=== PATIENT | female | born 1970 | race Hispanic/Latino ===

== ENCOUNTER 2017-08-30 13:18 | Emergency (ER) | payer MEDICAID, OTHER ==
[~2017-08-30] VITALS: Ht 157.5 cm; Wt 73.0 kg
[~2017-08-30 13:18] MED LIST: ACYC800T PO; ARIP2TAB10 PO; ATR20T PO; BENZ200C25 PO; CEFD300C3 PO; CPR500T PO; FLUO40CA PO; GABAPENTIN; LISI1TAB PO; LISI1TAB8; MELO-198 PO; NAPR500T PO; PRD20T PO; TRAM50TA2 PO
--- OUTSIDE RECORDS SUMMARY | 2017-08-30 13:25 | XMS REPORT | Clinical Summary ---
Author Author [facility] Organization [facility] Address Unknown Phone Unavailable Care Team Providers Care Dietetic Technician Name Role Phone PCP Unavailable Source Comments Some departments are not documenting in the electronic medical record. If you do not see the information that you expected, contact Release of Information in the Health Information Management department at [phone] for further assistance in locating additional records.[facility] Allergies No Known Allergies Current Medications Prescription Sig. Disp. Refills Start End Date Status Date cyclobenzaprine Take 10 mg by mouth three Active (FLEXERIL) 10 mg PO times daily as needed. tablet lisinopril/hydrochlorothi Take 1 Dose by mouth Active azide (ZESTORETIC) daily. 20/12.5 mg tablet 1 Dose citalopram (CELEXA) 10 mg Take 40 mg by mouth Active PO tablet daily. oxyCODONE/acetaminophen Take 1-2 Tabs by mouth 30 Tab 0 07/14/20 Active (PERCOCET; ENDOCET; every 4 hours as needed 11 ROXICET) 5/325 mg PO for Pain. Max 12 tabs/day tablet docusate (COLACE) 100 mg Take 1 Cap by mouth twice 180 Cap 0 07/14/20 Active PO capsule daily. 11 polyethylene glycol 3350 Take 17 g by mouth daily 3 Bottle 0 07/14/20 Active (GLYCOLAX; MIRALAX) 17 as needed (constipation). 11 gram/dose PO powder lidocaine (LIDODERM) 5 % 1 Patch daily. Leave on 1 box 0 07/14/20 Active TP topical patch for 12 hours and remove 11 for 12 hours. atorvastatin (LIPITOR) 20 Take 1 Tab by mouth 90 Tab 0 07/14/20 Active mg PO tablet daily. 11 Active Problems Problem Noted Date Low back pain 07/11/2011 HTN (hypertension) 07/11/2011 HLD (hyperlipidemia) 07/11/2011 Anxiety 07/11/2011 Family History Medical History Relation Name Comments Arthritis-rheumatoid Father Dementia Father Diabetes Father Gout Father Heart Attack Father High Cholesterol Father Hypertension Father Arthritis-osteo Maternal Grandfather Diabetes Maternal Grandfather Hypertension Maternal Grandfather Cancer Maternal Grandmother Diabetes Maternal Grandmother Hypertension Maternal Grandmother Heart Attack Mother High Cholesterol Mother Hypertension Mother Asthma Sister Depression Sister High Cholesterol Sister Relation Name Status Comments Father Maternal Grandfather Maternal Grandmother Mother Sister Social History Tobacco Use Types Packs/Day Years Used Date Never Smoker Smokeless Tobacco: Never Used Alcohol Use Drinks/Week oz/Week Comments Yes 3 Cans of 1.8 Ocassional use beer Sex Assigned at Date Recorded Not on file Last Filed Vital Signs Vital Sign Reading Time Taken Blood Pressure 108/69 07/14/2011 12:25 PM CDT Pulse 112 07/14/2011 12:25 PM CDT Temperature 36.8 C (98.2 F) 07/14/2011 12:25 PM CDT Respiratory Rate - - Oxygen Saturation 99% 07/14/2011 12:25 PM CDT Inhaled Oxygen - - Concentration Weight 66.9 kg (147 lb 7.8 oz) 07/11/2011 11:26 PM CDT Height - - Body Mass Index - - Plan of Treatment Health Maintenance Due Date Last Done Comments PHYSICAL (COMPREHENSIVE) 1977 EXAM PERTUSSIS VACCINE 1981 TETANUS VACCINE 1987 CERVICAL CANCER SCREENING 2000 BREAST CANCER SCREENING 2010 INFLUENZA VACCINE 06/11/2017 Results Not on filefrom Last 3 Months
--- NOTE | 2017-08-30 13:56 | ED General ---
General Chief Complaint: Rect Problems Stated Complaint: BLOOD IN STOOL Nursing Triage Note: PT REPORTS BLOODY STOOL X 1 MONTH. SHE STATES SHE WAS SEEN AT [facility] YESTERDAY AND HER PROVIDER ATTEMPTED TO DO A RECTAL EXAM, BUT PT COULD NOT TOLERATE EXAM. SHE STATES SHE IS HAVING LOW BACK PAIN AND IS FEELING PRESSURE TO HER RECTUM. SHE DENIES N/V. Nursing Sepsis Screen: No Definite Risk Source of Information: Patient Exam Limitations: No Limitations History of Present Illness Time Seen by Provider: 13:56 Initial Comments 47-year-old female patient presents to the emergency department with complaints of constipation, rectal bleeding, and rectal pain for approximately one month. Patient was seen at [facility] yesterday and was unable to tolerate the rectal exam. Patient was told to use Preparation H ryqv-efk-uaybayr. States she is not able to tolerate inserting the tip of the tube into the anus. Pain and bleeding worse with constipation. Denies dizziness, shortness of air, nausea, vomiting, abdominal pain. Does have a history of hemorrhoids. Patient states she was told to contact her PCP today for follow-up in the office. States she called at 0730 this morning was told her physician was out of of the office. Was also told to come to the emergency department for evaluation. Also complains of pressure in the rectum. Patient is a history of chronic back pain and states this is causing her chronic back pain to be worse. Denies bowel or bladder incontinence. Timing/Duration: Intermittent, Other (1 month onset) Modifying Factors: worse with Other (worse with bowel movements) Allergies and Home Medications Allergies Coded Allergies: No Known Drug Allergies (Unverified , 03/26/13) Home Medications Hydrocortisone/Pramoxine 30 Gm Cream.appl, 30 GM RC QID for 10 Days, #1 Ref 0 apply to hemorrhoids QID x7-10 d Prescribed by: SARA QUEZADA on 08/30/17 1526 Lidocaine 15 Gm Cream..g., 15 GM TP UD PRN for pain, #1 Ref 0 apply to the affected area QID prn pain Prescribed by: SARA QUEZADA on 08/30/17 1526 Lisinopril/Hydrochlorothiazide 1 Each Tablet, #30 (Reported) Polyethylene Glycol 3350 119 Gm Powder, 17 GM PO HS PRN for CONSTIPATION-1ST LINE, #1 Ref 0 Prescribed by: SARA QUEZADA on 08/30/17 1526 Tramadol HCl 50 Mg Tablet, 50 MG PO Q4H PRN for PAIN, #14 Ref 0 Prescribed by: SARA QUEZADA on 10/19/16 1552 [Gabapentin] , (Reported) Constitutional: No chills, No diaphoresis, No dizziness, No fever, No malaise Respiratory: no symptoms reported Cardiovascular: no symptoms reported Gastrointestinal: No abdominal pain, constipation, No diarrhea, No hematemesis , No melena, No nausea, No vomiting, other (hematochezia) Genitourinary: No decreased output, No discharge, No dysuria, No frequency, No hematuria, No pain Musculoskeletal: no symptoms reported Skin: no symptoms reported Psychiatric/Neurological: No Symptoms Reported Hematologic/Lymphatic: No Symptoms Reported All Other Systems Reviewed Negative Unless Noted: Yes (Negative excepted noted.) Past Bxsokhx-Cpmiur-Tefpgw Hx Patient Social History Alcohol Use: Rarely Uses Recreational Drug Use: No Smoking Status: Never a Smoker 2nd Hand Smoke Exposure: No Recent Foreign Travel: No Contact w/Someone Who Travel: No Recent Infectious Disease Expo: No Recent Hopitalizations: No Physical Abuse: No Sexual Abuse: No Seasonal Allergies Seasonal Allergies: No Surgeries History of Surgeries: Yes (HYSTEROSCOPY) Surgeries: Orthopedic Respiratory History of Respiratory Disorde: No Cardiovascular History of Cardiac Disorders: Yes Cardiac Disorders: High Cholesterol, Hypertension Neurological History of Neurological Disord: No Reproductive System Hx Reproductive Disorders: No Gastrointestinal History of Gastrointestinal Di: Yes Gastrointestinal Disorders: Hemorrhoids Musculoskeletal History of Musculoskeletal Dis: Yes (BACK SX) Musculoskeletal Disorders: Chronic Back Pain Endocrine History of Endocrine Disorders: No Cancer History of Cancer: No Psychosocial History of Psychiatric Problem: Yes Behavioral Health Disorders: Depression Suicide Risk Score: 0 Integumentary History of Skin or Integumenta: No Blood Transfusions History of Blood Disorders: No Reviewed Nursing Assessment Reviewed/Agree w Nursing PMH: Yes Family Medical History Significant Family History: Heart Disease, Cancer, Diabetes, Hypertension Physical Exam Vital Signs Vital Sign - Last 12Hours 08/30/17 13:30 Temp 97.2 Pulse 75 Resp 16 B/P (MAP) 136/74 Pulse Ox 100 O2 Delivery Room Air Capillary Refill : Less Than 3 Seconds General Appearance: No Apparent Distress, WD/WN HEENT: PERRL/EOMI, Pharynx Normal Neck: Normal Inspection, Supple Respiratory: Lungs Clear, Normal Breath Sounds, No Accessory Muscle Use, No Respiratory Distress Cardiovascular: Regular Rate, Rhythm, No Edema, No Murmur, Normal Peripheral Pulses Gastrointestinal: Normal Bowel Sounds, No Organomegaly, Non Tender, Soft, No Distended Rectal: Normal Rectal Tone, Hemorrhoids, Other (anal fissure noted at the 2 o' clock position.) Back: Normal Inspection, No CVA Tenderness, No Vertebral Tenderness, Muscle Spasm (muscle spasm and tenderness noted of the bilateral lower paraspinous muscles) Extremity: Normal Capillary Refill, Normal Inspection, No Pedal Edema Neurologic/Psychiatric: Alert, Oriented x3, No Motor/Sensory Deficits, Normal Mood/Affect Skin: Normal Color, Warm/Dry Progress/Results/Core Measures Results/Orders My Orders Orders - SARA QUEZADA Ketorolac Injection (Toradol Injection) (08/30/17 14:05) Acute Abd Series (08/30/17 14:05) Lidocaine 2% (Urojet) (Xylocaine Urojet) (08/30/17 14:15) Medications Given in ED Current Medications Medications Dose Ordered Sig/Wayne Route Start Time Stop Time Status Last Admin Dose Admin Lidocaine HCl 10 ml ONCE ONCE TOP 08/30/17 14:15 08/30/17 14:16 DC 08/30/17 15:15 10 ML Vital Signs/I&O Vital Sign - Last 12Hours 08/30/17 08/30/17 13:30 15:32 Temp 97.2 97.2 Pulse 75 75 Resp 16 16 B/P (MAP) 136/74 Pulse Ox 100 100 O2 Delivery Room Air Blood Pressure Mean: 94 Diagnostic Imaging Diagonstic Imaging: Xray Plain Films/CT/US/NM/MRI: abdomen Comments FINDINGS: Upright chest shows the lungs to be clear. There is no free air under the diaphragm. Upright and supine abdomen show no air-fluid levels or distended bowel loops. There is normal appearing stool and gas pattern throughout the colon. No organomegaly or pathologic calcifications are demonstrated. Laminectomy changes are noted in the lower lumbar spine. IMPRESSION: Normal abdominal series. Dictated on workstation # [id number] Reviewed: Reviewed by Me (radiology report reviewed by me) Departure Communication (Admissions) Progress Notes Heme positive stool noted. Diagnostic studies discussed with the patient. Plan for discharge home with recticare, Analpram, and MiraLAX prescriptions. Patient to do sitz baths twice daily and after each bowel movement. Patient to continue stool softeners as instructed. Follow-up with her PCP as an outpatient for recheck. Impression Impression: Primary Impression: Anal fissure Disposition: 01 HOME, SELF-CARE Condition: Improved Departure-Patient Inst. Decision time for Depature: 15:24 Referrals: LESLYE BERNABE DO (PCP) Primary Care Physician HOLLEY BANUELOS (Family) Primary Care Physician Patient Instructions: Anal Fissure (DC) Add. Discharge Instructions: All discharge instructions reviewed with patient and/or family. Voiced understanding. Medications as instructed. Tylenol Extra Strength over-the- counter as directed for pain. Ibuprofen 800 mg by mouth every 8 hours as needed for pain. Sitz baths twice daily and after each bowel movement. Colace stool softener wwcw-ydv-deyoacq 2-3 times daily as needed for constipation. Follow-up with your primary care providers outpatient for recheck. Return to the emergency department for worsened symptoms or any other concerns. Scripts Polyethylene Glycol 3350 (Miralax) 119 Gm Powder 17 GM PO HS Y for CONSTIPATION-1ST LINE, #1 EA 0 Refills Prov: SARA QUEZADA 08/30/17 Hydrocortisone/Pramoxine (Analpram Hc 2.5% Cream) 30 Gm Cream.appl 30 GM RC QID for 10 Days, #1 APPLIC 0 Refills apply to hemorrhoids QID x7-10 d Prov: SARA QUEZADA 08/30/17 Lidocaine (Recticare) 15 Gm Cream..g. 15 GM TP UD Y for pain, #1 TUBE 0 Refills apply to the affected area QID prn pain Prov: SARA QUEZADA 08/30/17 Work/School Note: Work Release Form Date Seen in the Emergency Department: Aug 30, 2017 Return to Work: Sep 01, 2017 SARA QUEZADA Aug 30, 2017 13:56
[2017-08-30] MEDS ORDERED: KETOROLAC 60 MG/2 ML VIAL IM STA (14:05)
[2017-08-30] MEDS ORDERED: LIDOCAINE UROJET 2% GEL 10 ML PKG TOP ONE (14:15)
--- NOTE | 2017-08-30 14:42 | Diagnostic Imaging Report ---
INDICATION: Chest and back pain. FINDINGS: Upright chest shows the lungs to be clear. There is no free air under the diaphragm. Upright and supine abdomen show no air-fluid levels or distended bowel loops. There is normal appearing stool and gas pattern throughout the colon. No organomegaly or pathologic calcifications are demonstrated. Laminectomy changes are noted in the lower lumbar spine. IMPRESSION: Normal abdominal series. Dictated by: Dictated on workstation # [id number]
[2017-08-30] MEDS ORDERED: HC A30CR RC (15:26)
[2017-08-30] MEDS ORDERED: POLY119P5 PO (15:26)
[2017-08-30] MEDS ORDERED: LIDO15CR6 TP (15:26)
[2017-08-30 15:32] VITALS: BP 136/74
== END 2017-08-30 15:33 | disposition home or self-care (01) ==
LOC: EDUNIT# 13:18 → ER 13:21
DX: K60.2 Anal fissure, unspecified (principal); E78.00 Pure hypercholesterolemia, unspecified; I10 Essential (primary) hypertension; F32.9 Major depressive disorder, single episode, unspecified; Z82.49 Family history of ischemic heart disease and other diseases of the circulatory system
CPT/HCPCS: 74022; 96372; 99284

== ENCOUNTER → 2017-10-21 | Outpatient (CLI) | payer MEDICAID ==
[~2017-10-21] MED LIST changes: +HC A30CR RC; +LIDO15CR6 TP; +NAPR-1071 PO; -NAPR500T PO; +POLY119P5 PO
--- NOTE | 2017-10-21 10:43 | Diagnostic Imaging Report ---
PROCEDURE: MRI lumbar spine. TECHNIQUE: Multiplanar, multisequence MRI of the lumbar spine was performed without contrast. INDICATION: Low back pain. FINDINGS: There is satisfactory alignment of the lumbar spine at the posterior spinal line. The vertebral body heights are preserved. There is significant disc height loss at L5/S1. There is disc desiccation in the lower lumbar spine discs. The cauda equina and conus medullaris appear grossly unremarkable. There is a mild marrow signal edema around the posterior elements of the lower lumbar spine levels probably secondary to facet arthropathy. This is most prominent around the L3/L4 and L4/L5 facet joints on the left. T12/L1: There is no disc herniation, no spinal canal or foraminal stenosis. L1/L2: No disc herniation, no spinal canal or foraminal stenosis. There is mild foraminal hypertrophy. L2/L3: There is no disc herniation. There is mild facet hypertrophy. There is no spinal canal or foramina stenosis. L3/L4: There is a mild disc bulge and the moderate facet arthropathy. There is a mild central canal stenosis reducing the AP dimension of the canal to 9 mm. No lateral recess stenosis. The foramina demonstrate no significant stenosis. L4/L5: There is a diffuse disc bulge with xplanndo-rb-vaujkf facet arthropathy. There is severe spinal canal stenosis reducing the AP dimension of the canal to 5.5 mm and severe stenosis of the lateral recess on both sides. The foramina demonstrate mild stenosis on the left and moderate stenosis on the right side. L5/S1: There are posterior osteophytes and disc bulge with minimal posterior component seen. The facet joints demonstrate mild hypertrophy. No central canal or lateral recess stenosis. There is suggestion of prior laminectomy at this level. IMPRESSION: There is severe spinal canal stenosis at L4/L5 level. Dictated by: Dictated on workstation # [id number]
== END ==
LOC: RAD 09:19
PROVIDERS: ATTEND Nurse Practitioner Community Health
DX: M48.061 Spinal stenosis, lumbar region without neurogenic claudication (principal)
CPT/HCPCS: 72148

== ENCOUNTER → 2018-02-03 | Outpatient (CLI) | payer MEDICAID ==
--- NOTE | 2018-02-03 10:12 | Diagnostic Imaging Report ---
INDICATION: Low back pain. Time of exam 9:44 AM Flexion and extension views of the lumbar spine laterally were obtained. Flexion view does show approximately 5 mm of anterolisthesis of L4 on L5. This corrects to a normal alignment during extension. Vertebral body heights are maintained. There is degenerative disc disease at L5-S1 with disc space narrowing and marginal spurring. IMPRESSION: Abnormal motion is identified at the L4-5 level. No acute fracture is seen. There is significant L5-S1 degenerative disc disease. Dictated by: Dictated on workstation # [id number]
== END ==
LOC: RAD 09:09
PROVIDERS: ATTEND Neurological Surgery
DX: M48.061 Spinal stenosis, lumbar region without neurogenic claudication (principal); M51.37 Other intervertebral disc degeneration, lumbosacral region; M47.816 Spondylosis without myelopathy or radiculopathy, lumbar region
CPT/HCPCS: 72100

== ENCOUNTER 2018-02-22 08:55 | Emergency (ER) | payer MEDICAID ==
[~2018-02-22] VITALS: Ht 157.5 cm; Wt 72.6 kg
--- NOTE | 2018-02-22 09:15 | ED Cough/URI ---
General Chief Complaint: Cough/Cold/Flu Symptoms Stated Complaint: FLU SYMPTOMS Source: patient, family Exam Limitations: no limitations History of Present Illness Date Seen by Provider: Feb 22, 2018 Time Seen by Provider: 09:14 Initial Comments This 47-year-old white female presents with cough congestion and laryngitis for the past 2 weeks. Patient had associated sinus congestion with epistaxis. There's been no associated stiff neck or photophobia or headache. The patient had fever with her present illness for the first few days but has not for the last 10 days. Multiple family members have had a similar illness in the last 2 weeks. Other than severe disc disease the patient had no significant past medical history. Patient's biggest complaint is of a persistent cough worse at night. Allergies and Home Medications Allergies Coded Allergies: No Known Drug Allergies (Unverified , 03/26/13) Home Medications Hydrocortisone/Pramoxine 30 Gm Cream.appl, 30 GM RC QID apply to hemorrhoids QID x7-10 d Prescribed by: SARA QUEZADA on 08/30/17 1526 Lidocaine 15 Gm Cream..g., 15 GM TP UD PRN for pain apply to the affected area QID prn pain Prescribed by: SARA QUEZADA on 08/30/17 1526 Polyethylene Glycol 3350 119 Gm Powder, 17 GM PO HS PRN for CONSTIPATION-1ST LINE Prescribed by: SARA QUEZADA on 08/30/17 1526 Tramadol HCl 50 Mg Tablet, 50 MG PO Q4H PRN for PAIN Prescribed by: SARA QUEZADA on 10/19/16 1552 Patient Home Medication List Home Medication List Reviewed: Yes Review of Systems Constitutional: No chills; fever (patient had intermittent fever low grade during the course of her present illness.) EENTM: nose congestion, throat pain; No throat swelling Respiratory: see HPI, cough; No short of breath, No wheezing Cardiovascular: No chest pain, No edema, No palpitations Gastrointestinal: No abdominal pain, No diarrhea, No vomiting Genitourinary: no symptoms reported Musculoskeletal: no symptoms reported Skin: No rash Psychiatric/Neurological: No Symptoms Reported Hematologic/Lymphatic: No Symptoms Reported Immunological/Allergic: no symptoms reported Past Aoslqqv-Odnoze-Tewqab Hx Patient Social History Alcohol Use: Denies Use Recreational Drug Use: No Smoking Status: Never a Smoker 2nd Hand Smoke Exposure: No Recent Foreign Travel: No Contact w/Someone Who Travel: No Recent Hopitalizations: No Seasonal Allergies Seasonal Allergies: No Past Medical History Surgeries: Yes (HYSTEROSCOPY) Orthopedic Respiratory: No Cardiac: Yes High Cholesterol, Hypertension Neurological: No Reproductive Disorders: No Gastrointestinal: Yes Hemorrhoids Musculoskeletal: Yes (BACK SX) Chronic Back Pain Endocrine: No Cancer: No Psychosocial: Yes Depression Integumentary: No Blood Disorders: No Family Medical History Reviewed Nursing Family Hx Heart Disease, Cancer, Diabetes, Hypertension Physical Exam Vital Signs Vital Signs - First Documented 02/22/18 09:10 Temp 96.9 Pulse 100 Resp 20 B/P (MAP) 130/72 (91) Pulse Ox 99 O2 Delivery Room Air Capillary Refill : General Appearance: WD/WN, mild distress Eyes: Bilateral Eye Normal Inspection HEENT: pharyngeal erythema, other (nasal congestion.) Neck: non-tender, full range of motion, supple, normal inspection Respiratory: lungs clear, normal breath sounds Cardiovascular: normal peripheral pulses, regular rate, rhythm Gastrointestinal: normal bowel sounds, non tender, soft Extremities: normal range of motion, non-tender, normal inspection Neurologic/Psychiatric: no motor/sensory deficits, alert, normal mood/affect, oriented x 3 Skin: normal color, warm/dry Progress/Results/Core Measures Suspected Sepsis SIRS Temperature: Pulse: Respiratory Rate: Laboratory Tests 02/22/18 10:30: White Blood Count 7.6 Blood Pressure / Mean: Laboratory Tests 02/22/18 10:30: Platelet Count 306 Results/Orders Lab Results Laboratory Tests Test 02/22/18 09:27 02/22/18 10:30 Range/Units Group A Streptococcus Screen NEGATIVE NEGATIVE White Blood Count 7.6 4.3-11.0 10^3/uL Red Blood Count 4.10 L 4.35-5.85 10^6/uL Hemoglobin 11.8 11.5-16.0 G/DL Hematocrit 36 35-52 % Mean Corpuscular Volume 87 80-99 FL Mean Corpuscular Hemoglobin 29 25-34 PG Mean Corpuscular Hemoglobin Concent 33 32-36 G/DL Red Cell Distribution Width 13.2 10.0-14.5 % Platelet Count 306 130-400 10^3/uL Mean Platelet Volume 11.5 H 7.4-10.4 FL Neutrophils (%) (Auto) 68 42-75 % Lymphocytes (%) (Auto) 20 12-44 % Monocytes (%) (Auto) 9 0-12 % Eosinophils (%) (Auto) 3 0-10 % Basophils (%) (Auto) 0 0-10 % Neutrophils # (Auto) 5.1 1.8-7.8 X 10^3 Lymphocytes # (Auto) 1.5 1.0-4.0 X 10^3 Monocytes # (Auto) 0.7 0.0-1.0 X 10^3 Eosinophils # (Auto) 0.2 0.0-0.3 10^3/uL Basophils # (Auto) 0.0 0.0-0.1 10^3/uL Micro Results Microbiology 02/22/18 Influenza Types A,B Antigen (POOJA) - Final, Complete My Orders Orders - KENTRELL BERRY MD Rapid Strep A Screen (02/22/18 09:15) Influenza A And B Antigens (02/22/18 09:15) Cbc With Automated Diff (02/22/18 09:15) Chest 1 View, Ap/Pa Only (02/22/18 09:15) Vital Signs/I&O 02/22/18 02/22/18 09:10 09:10 Temp 96.9 Pulse 100 Resp 20 B/P (MAP) 130/72 (91) Pulse Ox 99 O2 Delivery Room Air Capillary Refill : Progress Note : Time: 10:39 Progress Note The patient's strep screen and flu a and B were negative. Chest x-ray was unremarkable. I discussed patient's findings with she and her . I recommended Tussionex and a short burst of prednisone to which they were agreeable. The patient also wanted to try a Z-Cesar. Scripts were written for these 3 medications. Departure Impression Primary Impression: Upper respiratory infection Qualified Codes: J06.9 - Acute upper respiratory infection, unspecified Additional Impressions: Influenza-like symptoms Bronchitis Disposition: HOME, SELF-CARE Condition: Unchanged Departure-Patient Inst. Decision time for Depature: 10:41 Referrals: [facility] (PCP) Primary Care Physician HOLLEY BANUELOS (Family) Primary Care Physician Patient Instructions: Acute Bronchitis, Adult (DC) Add. Discharge Instructions: Prednisone, Tussionex, and Zithromax as prescribed. Follow-up with [facility] on Saturday. Return in the interim if any problems or questions. All discharge instructions reviewed with patient and/or family. Voiced understanding. KENTRELL BERRY MD Feb 22, 2018 09:15
--- NOTE | 2018-02-22 10:10 | Diagnostic Imaging Report ---
EXAM: CHEST 1 VIEW, AP/PA ONLY INDICATION: Chest pain. Cough. COMPARISON: None. FINDINGS: Normal heart size and pulmonary vascularity. No focal pulmonary opacity, pleural effusion or pneumothorax. Osseous structures are unremarkable. IMPRESSION: Negative chest. Dictated by: Dictated on workstation # [id number]
[2018-02-22 10:34] LABS: BASOPHILS % (AUTO) 0 % (0-10); EOSINOPHILS # (AUTO) 0.2 10^3/uL (0.0-0.3); EOSINOPHILS % (AUTO) 3 % (0-10); HEMATOCRIT 36 % (35-52); HEMOGLOBIN 11.8 G/DL (11.5-16.0); LYMPHOCYTES # (AUTO) 1.5 X 10^3 (1.0-4.0); LYMPHOCYTES % (AUTO) 20 % (12-44); MEAN CORPUSCULAR HEMOGLOBIN 29 PG (25-34); MEAN CORPUSCULAR HGB CONC 33 G/DL (32-36); MEAN CORPUSCULAR VOLUME 87 FL (80-99); MEAN PLATELET VOLUME 11.5 FL (7.4-10.4); MONOCYTES # (AUTO) 0.7 X 10^3 (0.0-1.0); MONOCYTES % (AUTO) 9 % (0-12); NEUTROPHILS # (AUTO) 5.1 X 10^3 (1.8-7.8); NEUTROPHILS % (AUTO) 68 % (42-75); PLATELET COUNT 306 10^3/uL (130-400); RED CELL DISTRIBUTION WIDTH 13.2 % (10.0-14.5); WHITE BLOOD COUNT 7.6 10^3/uL (4.3-11.0)
[2018-02-22 10:52] VITALS: BP 135/89
--- OUTSIDE RECORDS SUMMARY | 2018-02-23 09:32 | XMS REPORT | Clinical Summary ---
Author Author [facility] Organization [facility] Address Unknown Phone Unavailable Care Team Providers Care Creping Machine Operator Name Role Phone Helen Rondon RN Unavailable Unavailable Fely Gray MD Unavailable Flor Patel MD PCP Source Comments Some departments are not documenting in the electronic medical record. If you do not see the information that you expected, contact Release of Information in the Health Information Management department at [phone] for further assistance in locating additional records.[facility] Allergies No Known Allergies Current Medications [...] PHYSICAL (COMPREHENSIVE) 1977 EXAM PERTUSSIS VACCINE 1981 HIV SCREENING 1985 TETANUS VACCINE 1987 CERVICAL CANCER SCREENING 2000 BREAST CANCER SCREENING 2010 INFLUENZA VACCINE 08/11/2018 Results Not on filefrom Last 3 Months
--- OUTSIDE RECORDS SUMMARY | 2018-02-23 09:33 | XMS REPORT | Continuity of Care Document ---
Author Author [facility] Address Unknown Phone Unavailable Allergies Active Description Code Type Severity Reaction Onset Reported/Identified Relationship to Patient Clinical Status Yes No Known Drug Allergies [id number] Drug Allergy Unknown N/A 03/26/2013 Medications There is no data. Problems Date Dx Coded Attending Type Code Diagnosis Diagnosed By 08/19/2012 HOLLEY BANUELOS APRN 626.2 MENORRHAGIA 08/19/2012 HOLLEY BANUELOS APRN 724.5 BACK PAIN, GENERAL 08/19/2012 HOLLEY BANUELOS APRN 729.5 PAIN IN LIMB 08/19/2012 HOLLEY BANUELOS APRN 924.9 BRUISE/CONTUSION UNSPECIFIED SITE 08/19/2012 HOLLEY BANUELOS APRN V04.81 FLU DX (3 YRS AND ABOVE, IM) 08/19/2012 HOLLEY BANUELOS APRN V18.0 FAM HX DIABETES MELLITUS 08/19/2012 HOLLEY BANUELOS APRN S V81.1 HYPERTENSION SCREENING 08/19/2012 LETICIA ZELAYA LCPC B 626.2 MENORRHAGIA 08/19/2012 LETICIA ZELAYA LCPC B 724.5 BACK PAIN, GENERAL 08/19/2012 NATHALIE NIX LETICIA B 729.5 PAIN IN LIMB 08/19/2012 NATHALIE NIX LETICIA B 924.9 BRUISE/CONTUSION UNSPECIFIED SITE 08/19/2012 NILA ZELAYA LCPCLEY B V04.81 FLU DX (3 YRS AND ABOVE, IM) 08/19/2012 NATHALIE NIX LETICIA B V18.0 FAM HX DIABETES MELLITUS 08/19/2012 NATHALIE NIX LETICIA B V81.1 HYPERTENSION SCREENING 08/19/2012 626.2 MENORRHAGIA 08/19/2012 724.5 BACK PAIN, GENERAL 08/19/2012 729.5 PAIN IN LIMB 08/19/2012 924.9 BRUISE/ CONTUSION UNSPECIFIED SITE 08/19/2012 V04.81 FLU DX (3 YRS AND ABOVE, IM) 08/19/2012 V18.0 FAM HX DIABETES MELLITUS 08/19/2012 V81.1 HYPERTENSION SCREENING 08/19/2012 626.2 MENORRHAGIA 08/19/2012 724.5 BACK PAIN, GENERAL 08/19/2012 729.5 PAIN IN LIMB 08/19/2012 924.9 BRUISE/ CONTUSION UNSPECIFIED SITE 08/19/2012 V04.81 FLU DX (3 YRS AND ABOVE, IM) 08/19/2012 V18.0 FAM HX DIABETES MELLITUS 08/19/2012 V81.1 HYPERTENSION SCREENING 08/19/2012 VIN DESIGN CELL ENGINEER, HOLLEY S 626.2 MENORRHAGIA 08/19/2012 VIN DESIGN CELL ENGINEER, HOLLEY S 724.5 BACK PAIN, GENERAL 08/19/2012 VIN DESIGN CELL ENGINEER, HOLLEY S 729.5 PAIN IN LIMB 08/19/2012 VIN DESIGN CELL ENGINEER, HOLLEY S 924.9 BRUISE/CONTUSION UNSPECIFIED SITE 08/19/2012 VIN DESIGN CELL ENGINEER, HOLLEY S V04.81 FLU DX (3 YRS AND ABOVE, IM) 08/19/2012 VIN DESIGN CELL ENGINEER, HOLLEY S V18.0 FAM HX DIABETES MELLITUS 08/19/2012 VIN DESIGN CELL ENGINEER, HOLLEY S V81.1 HYPERTENSION SCREENING 08/19/2012 VIN DESIGN CELL ENGINEER, HOLLEY S 626.2 MENORRHAGIA 08/19/2012 VIN DESIGN CELL ENGINEER, HOLLEY S 724.5 BACK PAIN, GENERAL 08/19/2012 VIN DESIGN CELL ENGINEER, HOLLEY S 729.5 PAIN IN LIMB 08/19/2012 VIN DESIGN CELL ENGINEER, HOLLEY S 924.9 BRUISE/CONTUSION UNSPECIFIED SITE 08/19/2012 VIN DESIGN CELL ENGINEER, HOLLEY S V04.81 FLU DX (3 YRS AND ABOVE, IM) 08/19/2012 VIN DESIGN CELL ENGINEER, HOLLEY S V18.0 FAM HX DIABETES MELLITUS 08/19/2012 VIN DESIGN CELL ENGINEER, HOLLEY S V81.1 HYPERTENSION SCREENING 08/19/2012 EMMA LSCS, RICHIE R 626.2 MENORRHAGIA 08/19/2012 EMMA LSCS, RICHIE R 724.5 BACK PAIN, GENERAL 08/19/2012 EMMA [facility], RICHIE R 729.5 PAIN IN LIMB 08/19/2012 EMMA [facility], RICHIE R 924.9 BRUISE/CONTUSION UNSPECIFIED SITE 08/19/2012 [facility] V04.81 FLU DX (3 YRS AND ABOVE, IM) 08/19/2012 [facility] V18.0 FAM HX DIABETES MELLITUS 08/19/2012 [facility], RICHIE R V81.1 HYPERTENSION SCREENING 08/19/2012 BERNABE DO, LESLYE K 626.2 MENORRHAGIA 08/19/2012 BERNABE DO, LESLYE K 724.5 BACK PAIN, GENERAL 08/19/2012 BERNABE DO, LESLYE K 729.5 PAIN IN LIMB 08/19/2012 BERNABE DO, LESLYE K 924.9 BRUISE/CONTUSION UNSPECIFIED SITE 08/19/2012 SRINIVASA TIPTON, LESLYE K V04.81 FLU DX (3 YRS AND ABOVE, IM) 08/19/2012 KYRA BERNABE DOA K V18.0 FAM HX DIABETES MELLITUS 08/19/2012 SRINIVASA DO, LESLYE K V81.1 HYPERTENSION SCREENING 08/19/2012 VIN DESIGN CELL ENGINEER, HOLLEY S 626.2 MENORRHAGIA 08/19/2012 VIN DESIGN CELL ENGINEER, HOLLEY S 724.5 BACK PAIN, GENERAL 08/19/2012 VIN DESIGN CELL ENGINEER, HOLLEY S 729.5 PAIN IN LIMB 08/19/2012 VIN DESIGN CELL ENGINEER, HOLLEY S 924.9 BRUISE/CONTUSION UNSPECIFIED SITE 08/19/2012 VIN DESIGN CELL ENGINEER, HOLLEY S V04.81 FLU DX (3 YRS AND ABOVE, IM) 08/19/2012 VIN DESIGN CELL ENGINEER, HOLLEY S V18.0 FAM HX DIABETES MELLITUS 08/19/2012 VIN DESIGN CELL ENGINEER, HOLLEY S V81.1 HYPERTENSION SCREENING 08/19/2012 WHITE DDS, GOVIND D 626.2 MENORRHAGIA 08/19/2012 WHITE DDS, GOVIND D 724.5 BACK PAIN, GENERAL 08/19/2012 WHITE DDS, GOVIND D 729.5 PAIN IN LIMB 08/19/2012 WHITE DDS, GOVIND D 924.9 BRUISE/CONTUSION UNSPECIFIED SITE 08/19/2012 WHITE DDS, GOVIND D V04.81 FLU DX (3 YRS AND ABOVE, IM) 08/19/2012 WHITE DDS, GOVIND D V18.0 FAM HX DIABETES MELLITUS 08/19/2012 WHITE DDS, GOVIND D V81.1 HYPERTENSION SCREENING 08/19/2012 VIN DESIGN CELL ENGINEER, HOLLEY S 626.2 MENORRHAGIA 08/19/2012 VIN DESIGN CELL ENGINEER, HOLLEY S 724.5 BACK PAIN, GENERAL 08/19/2012 VIN DESIGN CELL ENGINEER, HOLLEY S 729.5 PAIN IN LIMB 08/19/2012 VIN DESIGN CELL ENGINEER, HOLLEY S 924.9 BRUISE/CONTUSION UNSPECIFIED SITE 08/19/2012 VIN DESIGN CELL ENGINEER, HOLLEY S V04.81 FLU DX (3 YRS AND ABOVE, IM) 08/19/2012 VIN DESIGN CELL ENGINEER, HOLLEY S V18.0 FAM HX DIABETES MELLITUS 08/19/2012 VIN DESIGN CELL ENGINEER, HOLLEY S V81.1 HYPERTENSION SCREENING 08/19/2012 VIN DESIGN CELL ENGINEER, HOLLEY S 626.2 MENORRHAGIA 08/19/2012 VIN DESIGN CELL ENGINEER, HOLLEY S 724.5 BACK PAIN, GENERAL 08/19/2012 VIN DESIGN CELL ENGINEER, HOLLEY S 729.5 PAIN IN LIMB 08/19/2012 VIN DESIGN CELL ENGINEER, HOLLEY S 924.9 BRUISE/CONTUSION UNSPECIFIED SITE 08/19/2012 VIN DESIGN CELL ENGINEER, HOLLEY S V04.81 FLU DX (3 YRS AND ABOVE, IM) 08/19/2012 VIN DESIGN CELL ENGINEER, HOLLEY S V18.0 FAM HX DIABETES MELLITUS 08/19/2012 VIN DESIGN CELL ENGINEER, HOLLEY S V81.1 HYPERTENSION SCREENING 08/19/2012 VIN DESIGN CELL ENGINEER, HOLLEY S 626.2 MENORRHAGIA 08/19/2012 VIN DESIGN CELL ENGINEER, HOLLEY S 724.5 BACK PAIN, GENERAL 08/19/2012 VIN DESIGN CELL ENGINEER, HOLLEY S 729.5 PAIN IN LIMB 08/19/2012 VIN DESIGN CELL ENGINEER, HOLLEY S 924.9 BRUISE/CONTUSION UNSPECIFIED SITE 08/19/2012 VIN DESIGN CELL ENGINEER, HOLLEY S V04.81 FLU DX (3 YRS AND ABOVE, IM) 08/19/2012 VIN DESIGN CELL ENGINEER, HOLLEY S V18.0 FAM HX DIABETES MELLITUS 08/19/2012 VIN DESIGN CELL ENGINEER, HOLLEY S V81.1 HYPERTENSION SCREENING 08/19/2012 VIN DESIGN CELL ENGINEER, HOLLEY S 626.2 MENORRHAGIA 08/19/2012 VIN DESIGN CELL ENGINEER, HOLLEY S 724.5 BACK PAIN, GENERAL 08/19/2012 VIN DESIGN CELL ENGINEER, HOLLEY S 729.5 PAIN IN LIMB 08/19/2012 VIN DESIGN CELL ENGINEER, HOLLEY S 924.9 BRUISE/CONTUSION UNSPECIFIED SITE 08/19/2012 VIN DESIGN CELL ENGINEER, HOLLEY S V04.81 FLU DX (3 YRS AND ABOVE, IM) 08/19/2012 VIN DESIGN CELL ENGINEER, HOLLEY S V18.0 FAM HX DIABETES MELLITUS 08/19/2012 VIN DESIGN CELL ENGINEER, HOLLEY S V81.1 HYPERTENSION SCREENING 08/19/2012 VIN DESIGN CELL ENGINEER, HOLLEY S 626.2 MENORRHAGIA 08/19/2012 VIN DESIGN CELL ENGINEER, HOLLEY S 724.5 BACK PAIN, GENERAL 08/19/2012 VIN DESIGN CELL ENGINEER, HOLLEY S 729.5 PAIN IN LIMB 08/19/2012 VIN DESIGN CELL ENGINEER, HOLLEY S 924.9 BRUISE/CONTUSION UNSPECIFIED SITE 08/19/2012 VIN ROSALESN, HOLLEY S V04.81 FLU DX (3 YRS AND ABOVE, IM) 08/19/2012 VIN DESIGN CELL ENGINEER, HOLLEY S V18.0 FAM HX DIABETES MELLITUS 08/19/2012 VIN DESIGN CELL ENGINEER, HOLLEY S V81.1 HYPERTENSION SCREENING 08/19/2012 VIN DESIGN CELL ENGINEER, HOLLEY S 626.2 MENORRHAGIA 08/19/2012 VIN DESIGN CELL ENGINEER, HOLLEY S 724.5 BACK PAIN, GENERAL 08/19/2012 VIN DESIGN CELL ENGINEER, HOLLEY S 729.5 PAIN IN LIMB 08/19/2012 VIN DESIGN CELL ENGINEER, HOLLEY S 924.9 BRUISE/CONTUSION UNSPECIFIED SITE 08/19/2012 VIN DESIGN CELL ENGINEER, HLOLEY S V04.81 FLU DX (3 YRS AND ABOVE, IM) 08/19/2012 VIN DESIGN CELL ENGINEER, HOLLEY S V18.0 FAM HX DIABETES MELLITUS 08/19/2012 VIN DESIGN CELL ENGINEER, HOLLEY S V81.1 HYPERTENSION SCREENING 08/19/2012 ELSY VASQUEZ MD 626.2 MENORRHAGIA 08/19/2012 ELSY VASQUEZ MD 724.5 BACK PAIN, GENERAL 08/19/2012 ELSY VASQUEZ MD 729.5 PAIN IN LIMB 08/19/2012 ELSY VASQUEZ MD 924.9 BRUISE/CONTUSION UNSPECIFIED SITE 08/19/2012 ELSY VASQUEZ MD V04.81 FLU DX (3 YRS AND ABOVE, IM) 08/19/2012 ELSY VASQUEZ MD V18.0 FAM HX DIABETES MELLITUS 08/19/2012 ELSY VASQUEZ MD V81.1 HYPERTENSION SCREENING 08/19/2012 VIN ADORNO, HOLLEY S 626.2 MENORRHAGIA 08/19/2012 VIN ROSALESN, HOLLEY S 724.5 BACK PAIN, GENERAL 08/19/2012 VIN ROSALESN, HOLLEY S 729.5 PAIN IN LIMB 08/19/2012 VIN DESIGN CELL ENGINEER, HOLLEY S 924.9 BRUISE/CONTUSION UNSPECIFIED SITE 08/19/2012 VIN DESIGN CELL ENGINEER, HOLLEY S V04.81 FLU DX (3 YRS AND ABOVE, IM) 08/19/2012 VIN DESIGN CELL ENGINEER, HOLLEY S V18.0 FAM HX DIABETES MELLITUS 08/19/2012 VIN DESIGN CELL ENGINEER, HOLLEY S V81.1 HYPERTENSION SCREENING 08/19/2012 VIN DESIGN CELL ENGINEER, HOLLEY S 626.2 MENORRHAGIA 08/19/2012 VIN DESIGN CELL ENGINEER, HOLLEY S 724.5 BACK PAIN, GENERAL 08/19/2012 VIN DESIGN CELL ENGINEER, HOLLEY S 729.5 PAIN IN LIMB 08/19/2012 VIN DESIGN CELL ENGINEER, HOLLEY S 924.9 BRUISE/CONTUSION UNSPECIFIED SITE 08/19/2012 VIN ADORNO, HOLLEY S V04.81 FLU DX (3 YRS AND ABOVE, IM) 08/19/2012 MIKE BANUELOS APRNNDA S V18.0 FAM HX DIABETES MELLITUS 08/19/2012 MIKE BANUELOS APRNNDA S V81.1 HYPERTENSION SCREENING 08/19/2012 MIKE BANUELOS APRNNDA S 626.2 MENORRHAGIA 08/19/2012 MIKE BANUELOS APRNNDA S 724.5 BACK PAIN, GENERAL 08/19/2012 MIKE BANUELOS APRNNDA S 729.5 PAIN IN LIMB 08/19/2012 MIKE BANUELOS APRNNDA S 924.9 BRUISE/CONTUSION UNSPECIFIED SITE 08/19/2012 MIKE BANUELOS APRNNDA S V04.81 FLU DX (3 YRS AND ABOVE, IM) 08/19/2012 MIKE BANUELOS APRNNDA S V18.0 FAM HX DIABETES MELLITUS 08/19/2012 MIKE BANUELOS APRNNDA S V81.1 HYPERTENSION SCREENING 08/19/2012 LUCIO MALHOTRA APRNIDI A 626.2 MENORRHAGIA 08/19/2012 ROSCOE ADORNO MARGARITO A 724.5 BACK PAIN, GENERAL 08/19/2012 ROSCOE ADORNO MARGARITO A 729.5 PAIN IN LIMB 08/19/2012 ROSCOE ADORNO MARGARITO A 924.9 BRUISE/CONTUSION UNSPECIFIED SITE 08/19/2012 ROCSOE ADORNO MARGARITO A V04.81 FLU DX (3 YRS AND ABOVE, IM) 08/19/2012 LUCIO MALHOTRA APRNIDI A V18.0 FAM HX DIABETES MELLITUS 08/19/2012 ROSCOE ADORNO MARGARITO A V81.1 HYPERTENSION SCREENING 08/19/2012 626.2 MENORRHAGIA 08/19/2012 724.5 BACK PAIN, GENERAL 08/19/2012 729.5 PAIN IN LIMB 08/19/2012 924.9 BRUISE/ CONTUSION UNSPECIFIED SITE 08/19/2012 V04.81 FLU DX (3 YRS AND ABOVE, IM) 08/19/2012 V18.0 FAM HX DIABETES MELLITUS 08/19/2012 V81.1 HYPERTENSION SCREENING 10/08/2012 VINMIA ROSALESHeri HOLLEY S V76.10 BREAST CANCER SCREENING 10/08/2012 VIN ADORNO, HOLLEY S V76.2 CERVICAL CANCER SCREENING (PAP SMEAR) 10/08/2012 LETICIA ZELAYA LCPC B V76.10 BREAST CANCER SCREENING 10/08/2012 NATHALIE NIX, LETICIA B V76.2 CERVICAL CANCER SCREENING (PAP SMEAR) 10/08/2012 V76.10 BREAST CANCER SCREENING 10/08/2012 V76.2 CERVICAL CANCER SCREENING (PAP SMEAR) 10/08/2012 V76.10 BREAST CANCER SCREENING 10/08/2012 V76.2 CERVICAL CANCER SCREENING (PAP SMEAR) 10/08/2012 VIN ADORNO HOLLEY S V76.10 BREAST CANCER SCREENING 10/08/2012 VIN ADORNO HOLLEY S V76.2 CERVICAL CANCER SCREENING (PAP SMEAR) 10/08/2012 VIN ADORNO HOLLEY S V76.10 BREAST CANCER SCREENING 10/08/2012 VIN ADORNO HOLLEY S V76.2 CERVICAL CANCER SCREENING (PAP SMEAR) 10/08/2012 [facility], RICHIE R V76.10 BREAST CANCER SCREENING 10/08/2012 [facility], RICHIE R V76.2 CERVICAL CANCER SCREENING (PAP SMEAR) 10/08/2012 BERNABE DOKYRAA K V76.10 BREAST CANCER SCREENING 10/08/2012 BERNABE DOKYRAA K V76.2 CERVICAL CANCER SCREENING (PAP SMEAR) 10/08/2012 VIN ADORNO, HOLLEY S V76.10 BREAST CANCER SCREENING 10/08/2012 VIN ADORNO HOLLEY S V76.2 CERVICAL CANCER SCREENING (PAP SMEAR) 10/08/2012 GOVIND MCFADDEN DDS V76.10 BREAST CANCER SCREENING 10/08/2012 GOVIND MCFADDEN DDS V76.2 CERVICAL CANCER SCREENING (PAP SMEAR) 10/08/2012 VIN ADORNO HOLLEY S V76.10 BREAST CANCER SCREENING 10/08/2012 VIN ADORNO, HOLLEY S V76.2 CERVICAL CANCER SCREENING (PAP SMEAR) 10/08/2012 VIN ADORNO, HOLLEY S V76.10 BREAST CANCER SCREENING 10/08/2012 VIN ADORNO, HOLLEY S V76.2 CERVICAL CANCER SCREENING (PAP SMEAR) 10/08/2012 MIKE BANUELOS APRNNDA S V76.10 BREAST CANCER SCREENING 10/08/2012 PRINCESS BANUELOS APRNA S V76.2 CERVICAL CANCER SCREENING (PAP SMEAR) 10/08/2012 MIKE BANUELOS APRNNDA S V76.10 BREAST CANCER SCREENING 10/08/2012 MIKE BANUELOS APRNNDA S V76.2 CERVICAL CANCER SCREENING (PAP SMEAR) 10/08/2012 MIKE BANUELOS APRNNDA S V76.10 BREAST CANCER SCREENING 10/08/2012 MIKE BANUELOS APRNNDA S V76.2 CERVICAL CANCER SCREENING (PAP SMEAR) 10/08/2012 PRINCESS BANUELOS APRNA S V76.10 BREAST CANCER SCREENING 10/08/2012 PRINCESS BANUELOS APRNA S V76.2 CERVICAL CANCER SCREENING (PAP SMEAR) 10/08/2012 ELSY VASQUEZ MD V76.10 BREAST CANCER SCREENING 10/08/2012 ELSY VASQUEZ MD V76.2 CERVICAL CANCER SCREENING (PAP SMEAR) 10/08/2012 PRINCESS BANUELOS APRNA S V76.10 BREAST CANCER SCREENING 10/08/2012 PRINCESS BANUELOS APRNA S V76.2 CERVICAL CANCER SCREENING (PAP SMEAR) 10/08/2012 HOLLEY BANUELOS APRN S V76.10 BREAST CANCER SCREENING 10/08/2012 PRINCESS BANUELOS APRNA S V76.2 CERVICAL CANCER SCREENING (PAP SMEAR) 10/08/2012 PRINCESS BANUELOS APRNA S V76.10 BREAST CANCER SCREENING 10/08/2012 PRINCESS BANUELOS APRNA S V76.2 CERVICAL CANCER SCREENING (PAP SMEAR) 10/08/2012 MARGARITO MALHOTRA APRN V76.10 BREAST CANCER SCREENING 10/08/2012 MARGARITO MALHOTRA APRN A V76.2 CERVICAL CANCER SCREENING (PAP SMEAR) 10/08/2012 V76.10 BREAST CANCER SCREENING 10/08/2012 V76.2 CERVICAL CANCER SCREENING (PAP SMEAR) 12/19/2012 LETICIA ZELAYA LCPC 309.28 AD ADJ D/O W ANX DEP MOOD 12/19/2012 309.28 AD ADJ D/O W ANX DEP MOOD 12/19/2012 309.28 AD ADJ D/O W ANX DEP MOOD 12/19/2012 PRINCESS BANUELOS APRNA S 309.28 AD ADJ D/O W ANX DEP MOOD 12/19/2012 PRINCESS BANUELOS APRNA S 309.28 AD ADJ D/O W ANX DEP MOOD 12/19/2012 [facility], RICHIE R 309.28 AD ADJ D/O W ANX DEP MOOD 12/19/2012 SRINIVASA TIPTON LESLYE K 309.28 AD ADJ D/O W ANX DEP MOOD 12/19/2012 PRINCESS BANUELOS APRNA S 309.28 AD ADJ D/O W ANX DEP MOOD 12/19/2012 WHITE DDS, GOVIND D 309.28 AD ADJ D/O W ANX DEP MOOD 12/19/2012 PRINCESS BANUELOS APRNA S 309.28 AD ADJ D/O W ANX DEP MOOD 12/19/2012 PRINCESS BANUELOS APRNA S 309.28 AD ADJ D/O W ANX DEP MOOD 12/19/2012 PRINCESS BANUELOS APRNA S 309.28 AD ADJ D/O W ANX DEP MOOD 12/19/2012 PRINCESS BANUELOS APRNA S 309.28 AD ADJ D/O W ANX DEP MOOD 12/19/2012 MIKE BANUELOS APRNNDA S 309.28 AD ADJ D/O W ANX DEP MOOD 12/19/2012 MIKE BANUELOS APRNNDA S 309.28 AD ADJ D/O W ANX DEP MOOD 12/19/2012 CHRISTINA PETERS, ELSY 309.28 AD ADJ D/O W ANX DEP MOOD 12/19/2012 PRINCESS BANUELOS APRNA S 309.28 AD ADJ D/O W ANX DEP MOOD 12/19/2012 PRINCESS BANUELOS APRNA S 309.28 AD ADJ D/O W ANX DEP MOOD 12/19/2012 PRINCESS BANUELOS APRNA S 309.28 AD ADJ D/O W ANX DEP MOOD 12/19/2012 MARGARITO MALHOTRA APRN 309.28 AD ADJ D/O W ANX DEP MOOD 03/26/2013 GRACIELA PETERS, WOLF Hu Ot 564.00 03/26/2013 GRACIELA PETERS, WOLF Hu Ot 599.0 03/26/2013 GRACIELA PETERS, WOLF Hu Ot 789.09 05/21/2013 307.81 TENSION HEADACHE 05/21/2013 354.0 CARPAL TUNNEL SYNDROME 05/21/2013 706.1 OTHER ACNE 05/21/2013 VIN DESIGN CELL ENGINEER, HOLLEY S 307.81 TENSION HEADACHE 05/21/2013 VIN DESIGN CELL ENGINEER, HOLLEY S 354.0 CARPAL TUNNEL SYNDROME 05/21/2013 VIN DESIGN CELL ENGINEER, HOLLEY S 706.1 OTHER ACNE 05/21/2013 VIN DESIGN CELL ENGINEER, HOLLEY S 307.81 TENSION HEADACHE 05/21/2013 VIN DESIGN CELL ENGINEER, HOLLEY S 354.0 CARPAL TUNNEL SYNDROME 05/21/2013 VIN DESIGN CELL ENGINEER, HOLLEY S 706.1 OTHER ACNE 05/21/2013 [facility] 307.81 TENSION HEADACHE 05/21/2013 [facility], RICHIE R 354.0 CARPAL TUNNEL SYNDROME 05/21/2013 [facility]ICH[facility] R 706.1 OTHER ACNE 05/21/2013 BERNABE DO, LESLYE K 307.81 TENSION HEADACHE 05/21/2013 BERNABE DO, LESLYE K 354.0 CARPAL TUNNEL SYNDROME 05/21/2013 BERNABE DO, LESLYE K 706.1 OTHER ACNE 05/21/2013 VIN DESIGN CELL ENGINEER, HOLLEY S 307.81 TENSION HEADACHE 05/21/2013 VIN DESIGN CELL ENGINEER, HOLLEY S 354.0 CARPAL TUNNEL SYNDROME 05/21/2013 VIN DESIGN CELL ENGINEER, HOLLEY S 706.1 OTHER ACNE 05/21/2013 WHITE DDS, GOVIND D 307.81 TENSION HEADACHE 05/21/2013 WHITE DDS, GOVIND D 354.0 CARPAL TUNNEL SYNDROME 05/21/2013 WHITE DDS, GOVIND D 706.1 OTHER ACNE 05/21/2013 VIN DESIGN CELL ENGINEER, HOLLEY S 307.81 TENSION HEADACHE 05/21/2013 VIN DESIGN CELL ENGINEER, HOLLEY S 354.0 CARPAL TUNNEL SYNDROME 05/21/2013 VIN DESIGN CELL ENGINEER, HOLLEY S 706.1 OTHER ACNE 05/21/2013 VIN DESIGN CELL ENGINEER, HOLLEY S 307.81 TENSION HEADACHE 05/21/2013 VIN DESIGN CELL ENGINEER, HOLLEY S 354.0 CARPAL TUNNEL SYNDROME 05/21/2013 VIN DESIGN CELL ENGINEER, HOLLEY S 706.1 OTHER ACNE 05/21/2013 VIN DESIGN CELL ENGINEER, HOLLEY S 307.81 TENSION HEADACHE 05/21/2013 VIN DESIGN CELL ENGINEER, HOLLEY S 354.0 CARPAL TUNNEL SYNDROME 05/21/2013 VIN DESIGN CELL ENGINEER, HOLLEY S 706.1 OTHER ACNE 05/21/2013 VIN DESIGN CELL ENGINEER, HOLLEY S 307.81 TENSION HEADACHE 05/21/2013 VIN DESIGN CELL ENGINEER, HOLLEY S 354.0 CARPAL TUNNEL SYNDROME 05/21/2013 VIN DESIGN CELL ENGINEER, HOLLEY S 706.1 OTHER ACNE 05/21/2013 VIN DESIGN CELL ENGINEER, HOLLEY S 307.81 TENSION HEADACHE 05/21/2013 VIN DESIGN CELL ENGINEER, HOLLEY S 354.0 CARPAL TUNNEL SYNDROME 05/21/2013 VIN DESIGN CELL ENGINEER, HOLLEY S 706.1 OTHER ACNE 05/21/2013 VIN DESIGN CELL ENGINEER, HOLLEY S 307.81 TENSION HEADACHE 05/21/2013 VIN DESIGN CELL ENGINEER, HOLLEY S 354.0 CARPAL TUNNEL SYNDROME 05/21/2013 VIN DESIGN CELL ENGINEER, HOLLEY S 706.1 OTHER ACNE 05/21/2013 ELSY VASQUEZ MD 307.81 TENSION HEADACHE 05/21/2013 ELSY VASQUEZ MD 354.0 CARPAL TUNNEL SYNDROME 05/21/2013 ELSY VASQUEZ MD 706.1 OTHER ACNE 05/21/2013 VIN DESIGN CELL ENGINEER, HOLLEY S 307.81 TENSION HEADACHE 05/21/2013 VIN DESIGN CELL ENGINEER, HOLLEY S 354.0 CARPAL TUNNEL SYNDROME 05/21/2013 VIN DESIGN CELL ENGINEER, HOLLEY S 706.1 OTHER ACNE 05/21/2013 VIN DESIGN CELL ENGINEER, HOLLEY S 307.81 TENSION HEADACHE 05/21/2013 VIN DESIGN CELL ENGINEER, HOLLEY S 354.0 CARPAL TUNNEL SYNDROME 05/21/2013 VIN DESIGN CELL ENGINEER, HOLLEY S 706.1 OTHER ACNE 05/21/2013 VIN DESIGN CELL ENGINEER, HOLLEY S 307.81 TENSION HEADACHE 05/21/2013 VIN DESIGN CELL ENGINEER, HOLLEY S 354.0 CARPAL TUNNEL SYNDROME 05/21/2013 VIN DESIGN CELL ENGINEER, HOLLEY S 706.1 OTHER ACNE 05/21/2013 ROSCOE DESIGN CELL ENGINEER, MARGARITO A 307.81 TENSION HEADACHE 05/21/2013 ROSCOE DESIGN CELL ENGINEER, MARGARITO A 354.0 CARPAL TUNNEL SYNDROME 05/21/2013 ROSCOE DESIGN CELL ENGINEER, MARGARITO A 706.1 OTHER ACNE 08/13/2013 VIN DESIGN CELL ENGINEER, HOLLEY S 307.42 PERSISTENT DISORDER OF INITIATING OR MAINTAINING SLEEP 08/13/2013 VIN DESIGN CELL ENGINEER, HOLLEY S 599.0 URINARY TRACT INFECTION 08/13/2013 VNI DESIGN CELL ENGINEER, HOLLEY S 724.2 BACK PAIN, LOWER 08/13/2013 [facility] 307.42 PERSISTENT DISORDER OF INITIATING OR MAINTAINING SLEEP 08/13/2013 [facility], RICHIE R 599.0 URINARY TRACT INFECTION 08/13/2013 EMMA LSCS, RICHIE R 724.2 BACK PAIN, LOWER 08/13/2013 BERNABE DO, LESLYE K 307.42 PERSISTENT DISORDER OF INITIATING OR MAINTAINING SLEEP 08/13/2013 BERNABE DO LESLYE K 599.0 URINARY TRACT INFECTION 08/13/2013 BERNABE DO LESLYE K 724.2 BACK PAIN, LOWER 08/13/2013 VIN DESIGN CELL ENGINEER, HOLLEY S 307.42 PERSISTENT DISORDER OF INITIATING OR MAINTAINING SLEEP 08/13/2013 VIN DESIGN CELL ENGINEER, HOLLEY S 599.0 URINARY TRACT INFECTION 08/13/2013 VIN DESIGN CELL ENGINEER, HOLLEY S 724.2 BACK PAIN, LOWER 08/13/2013 WHITE DDS, GOVIND D 307.42 PERSISTENT DISORDER OF INITIATING OR MAINTAINING SLEEP 08/13/2013 WHITE DDS, GOVIND D 599.0 URINARY TRACT INFECTION 08/13/2013 WHITE DDS, GOVIND D 724.2 BACK PAIN, LOWER 08/13/2013 VIN DESIGN CELL ENGINEER, HOLLYE S 307.42 PERSISTENT DISORDER OF INITIATING OR MAINTAINING SLEEP 08/13/2013 VIN DESIGN CELL ENGINEER, HOLLEY S 599.0 URINARY TRACT INFECTION 08/13/2013 VIN DESIGN CELL ENGINEER, HOLLEY S 724.2 BACK PAIN, LOWER 08/13/2013 VIN DESIGN CELL ENGINEER, HOLLEY S 307.42 PERSISTENT DISORDER OF INITIATING OR MAINTAINING SLEEP 08/13/2013 VIN DESIGN CELL ENGINEER, HOLLEY S 599.0 URINARY TRACT INFECTION 08/13/2013 VIN DESIGN CELL ENGINEER, HOLLEY S 724.2 BACK PAIN, LOWER 08/13/2013 VIN DESIGN CELL ENGINEER, HOLLEY S 307.42 PERSISTENT DISORDER OF INITIATING OR MAINTAINING SLEEP 08/13/2013 VIN DESIGN CELL ENGINEER, HOLLEY S 599.0 URINARY TRACT INFECTION 08/13/2013 VIN DESIGN CELL ENGINEER, HOLLEY S 724.2 BACK PAIN, LOWER 08/13/2013 VIN DESIGN CELL ENGINEER, HOLLEY S 307.42 PERSISTENT DISORDER OF INITIATING OR MAINTAINING SLEEP 08/13/2013 VIN DESIGN CELL ENGINEER, HOLLEY S 599.0 URINARY TRACT INFECTION 08/13/2013 VIN DESIGN CELL ENGINEER, HOLLEY S 724.2 BACK PAIN, LOWER 08/13/2013 VIN DESIGN CELL ENGINEER, HOLLEY S 307.42 PERSISTENT DISORDER OF INITIATING OR MAINTAINING SLEEP 08/13/2013 VIN DESIGN CELL ENGINEER, HOLLEY S 599.0 URINARY TRACT INFECTION 08/13/2013 VIN DESIGN CELL ENGINEER, HOLLEY S 724.2 BACK PAIN, LOWER 08/13/2013 VIN DESIGN CELL ENGINEER, HOLLEY S 307.42 PERSISTENT DISORDER OF INITIATING OR MAINTAINING SLEEP 08/13/2013 VIN DESIGN CELL ENGINEER, HOLLEY S 599.0 URINARY TRACT INFECTION 08/13/2013 VIN DESIGN CELL ENGINEER, HOLLEY S 724.2 BACK PAIN, LOWER 08/13/2013 ELSY VASQUEZ MD 307.42 PERSISTENT DISORDER OF INITIATING OR MAINTAINING SLEEP 08/13/2013 ELSY VASQUEZ MD 599.0 URINARY TRACT INFECTION 08/13/2013 ELSY VASQUEZ MD 724.2 BACK PAIN, LOWER 08/13/2013 VIN DESIGN CELL ENGINEER, HOLLEY S 307.42 PERSISTENT DISORDER OF INITIATING OR MAINTAINING SLEEP 08/13/2013 VIN DESIGN CELL ENGINEER, HOLLEY S 599.0 URINARY TRACT INFECTION 08/13/2013 VIN DESIGN CELL ENGINEER, HOLLEY S 724.2 BACK PAIN, LOWER 08/13/2013 VIN DESIGN CELL ENGINEER, HOLLEY S 307.42 PERSISTENT DISORDER OF INITIATING OR MAINTAINING SLEEP 08/13/2013 VIN DESIGN CELL ENGINEER, HOLLEY S 599.0 URINARY TRACT INFECTION 08/13/2013 VIN DESIGN CELL ENGINEER, HOLLEY S 724.2 BACK PAIN, LOWER 08/13/2013 VIN DESIGN CELL ENGINEER, HOLLEY S 307.42 PERSISTENT DISORDER OF INITIATING OR MAINTAINING SLEEP 08/13/2013 VIN DESIGN CELL ENGINEER, HOLLEY S 599.0 URINARY TRACT INFECTION 08/13/2013 VIN DESIGN CELL ENGINEER, HOLLEY S 724.2 BACK PAIN, LOWER 08/13/2013 ROS[employer] DESIGN CELL ENGINEER, MARGARITO A 307.42 PERSISTENT DISORDER OF INITIATING OR MAINTAINING SLEEP 08/13/2013 ROS[employer]E DESIGN CELL ENGINEER, MARGARITO A 599.0 URINARY TRACT INFECTION 08/13/2013 ROSCOE DESIGN CELL ENGINEER, MARGARITO A 724.2 BACK PAIN, LOWER 08/27/2013 SRINIVASA DO, LESLYE K 354.2 LESION OF ULNAR NERVE 08/27/2013 VIN DESIGN CELL ENGINEER, HOLLEY S 354.2 LESION OF ULNAR NERVE 08/27/2013 WHITE DDS, GOVIND D 354.2 LESION OF ULNAR NERVE 08/27/2013 VIN DESIGN CELL ENGINEER, HOLLEY S 354.2 LESION OF ULNAR NERVE 08/27/2013 VIN DESIGN CELL ENGINEER, HOLLEY S 354.2 LESION OF ULNAR NERVE 08/27/2013 VIN DESIGN CELL ENGINEER, HOLLEY S 354.2 LESION OF ULNAR NERVE 08/27/2013 VIN DESIGN CELL ENGINEER, HOLLEY S 354.2 LESION OF ULNAR NERVE 08/27/2013 VIN DESIGN CELL ENGINEER, HOLLEY S 354.2 LESION OF ULNAR NERVE 08/27/2013 VIN DESIGN CELL ENGINEER, HOLLEY S 354.2 LESION OF ULNAR NERVE 08/27/2013 ELSY VASQUEZ MD 354.2 LESION OF ULNAR NERVE 08/27/2013 VIN DESIGN CELL ENGINEER, HOLLEY S 354.2 LESION OF ULNAR NERVE 08/27/2013 VIN DESIGN CELL ENGINEER, HOLLEY S 354.2 LESION OF ULNAR NERVE 08/27/2013 VIN DESIGN CELL ENGINEER, HOLLEY S 354.2 LESION OF ULNAR NERVE 08/27/2013 ROSCOE DESIGN CELL ENGINEER, MARGARITO A 354.2 LESION OF ULNAR NERVE 09/03/2013 VIN DESIGN CELL ENGINEER, HOLLEY S 564.00 CONSTIPATION 09/03/2013 VIN DESIGN CELL ENGINEER, HOLLEY S 788.1 DYSURIA 09/03/2013 WHITE DDS, GOVIND D 564.00 CONSTIPATION 09/03/2013 WHITE DDS, GOVIND D 788.1 DYSURIA 09/03/2013 VIN DESIGN CELL ENGINEER, HOLLEY S 564.00 CONSTIPATION 09/03/2013 VIN DESIGN CELL ENGINEER, HOLLEY S 788.1 DYSURIA 09/03/2013 VIN DESIGN CELL ENGINEER, HOLLEY S 564.00 CONSTIPATION 09/03/2013 VIN DESIGN CELL ENGINEER, HOLLEY S 788.1 DYSURIA 09/03/2013 VIN DESIGN CELL ENGINEER, HOLLEY S 564.00 CONSTIPATION 09/03/2013 VIN DESIGN CELL ENGINEER, HOLLEY S 788.1 DYSURIA 09/03/2013 VIN DESIGN CELL ENGINEER, HOLLEY S 564.00 CONSTIPATION 09/03/2013 VIN DESIGN CELL ENGINEER, HOLLEY S 788.1 DYSURIA 09/03/2013 VIN DESIGN CELL ENGINEER, HOLLEY S 564.00 CONSTIPATION 09/03/2013 VIN DESIGN CELL ENGINEER, HOLLEY S 788.1 DYSURIA 09/03/2013 VIN DESIGN CELL ENGINEER, HOLLEY S 564.00 CONSTIPATION 09/03/2013 VIN DESIGN CELL ENGINEER, HOLLEY S 788.1 DYSURIA 09/03/2013 ELSY VASQUEZ MD 564.00 CONSTIPATION 09/03/2013 ELSY VASQUEZ MD 788.1 DYSURIA 09/03/2013 VIN DESIGN CELL ENGINEER, HOLLEY S 564.00 CONSTIPATION 09/03/2013 VIN DESIGN CELL ENGINEER, HOLLEY S 788.1 DYSURIA 09/03/2013 VIN DESIGN CELL ENGINEER, HOLLEY S 564.00 CONSTIPATION 09/03/2013 VIN DESIGN CELL ENGINEER, HOLLEY S 788.1 DYSURIA 09/03/2013 VIN DESIGN CELL ENGINEER, HOLLEY S 564.00 CONSTIPATION 09/03/2013 VIN DESIGN CELL ENGINEER, HOLLEY S 788.1 DYSURIA 09/03/2013 ROSCOE DESIGN CELL ENGINEER, MARGARITO A 564.00 CONSTIPATION 09/03/2013 ROSCOE DESIGN CELL ENGINEER, MARGARITO A 788.1 DYSURIA 09/29/2013 VIN DESIGN CELL ENGINEER, HOLLEY S 626.7 POSTCOITAL BLEEDING 09/29/2013 VIN DESIGN CELL ENGINEER, HOLLEY S 780.52 INSOMNIA UNSPECIFIED 09/29/2013 VIN DESIGN CELL ENGINEER, HOLLEY S V74.5 STD SCREEN 09/29/2013 VIN DESIGN CELL ENGINEER, HOLLYE S 626.7 POSTCOITAL BLEEDING 09/29/2013 VIN DESIGN CELL ENGINEER, HOLLEY S 780.52 INSOMNIA UNSPECIFIED 09/29/2013 VIN DESIGN CELL ENGINEER, HOLLEY S V74.5 STD SCREEN 09/29/2013 VIN DESIGN CELL ENGINEER, HOLLEY S 626.7 POSTCOITAL BLEEDING 09/29/2013 VIN DESIGN CELL ENGINEER, HOLLEY S 780.52 INSOMNIA UNSPECIFIED 09/29/2013 VIN DESIGN CELL ENGINEER, HOLLEY S V74.5 STD SCREEN 09/29/2013 VIN DESIGN CELL ENGINEER, HOLLEY S 626.7 POSTCOITAL BLEEDING 09/29/2013 VIN DESIGN CELL ENGINEER, HOLLEY S 780.52 INSOMNIA UNSPECIFIED 09/29/2013 VIN DESIGN CELL ENGINEER, HOLLEY S V74.5 STD SCREEN 09/29/2013 VIN DESIGN CELL ENGINEER, HOLLEY S 626.7 POSTCOITAL BLEEDING 09/29/2013 VIN DESIGN CELL ENGINEER, HOLLEY S 780.52 INSOMNIA UNSPECIFIED 09/29/2013 VIN DESIGN CELL ENGINEER, HOLLEY S V74.5 STD SCREEN 09/29/2013 VIN DESIGN CELL ENGINEER, HOLLEY S 626.7 POSTCOITAL BLEEDING 09/29/2013 VIN DESIGN CELL ENGINEER, HOLLEY S 780.52 INSOMNIA UNSPECIFIED 09/29/2013 VIN DESIGN CELL ENGINEER, HOLLEY S V74.5 STD SCREEN 09/29/2013 ELSY VASQUEZ MD 626.7 POSTCOITAL BLEEDING 09/29/2013 ELSY VASQUEZ MD 780.52 INSOMNIA UNSPECIFIED 09/29/2013 ELSY VASQUEZ MD V74.5 STD SCREEN 09/29/2013 VIN DESIGN CELL ENGINEER, HOLLEY S 626.7 POSTCOITAL BLEEDING 09/29/2013 VIN DESIGN CELL ENGINEER, HOLLEY S 780.52 INSOMNIA UNSPECIFIED 09/29/2013 VIN DESIGN CELL ENGINEER, HOLLEY S V74.5 STD SCREEN 09/29/2013 VIN DESIGN CELL ENGINEER, HOLLEY S 626.7 POSTCOITAL BLEEDING 09/29/2013 VIN DESIGN CELL ENGINEER, HOLLEY S 780.52 INSOMNIA UNSPECIFIED 09/29/2013 VIN DESIGN CELL ENGINEER, HOLLEY S V74.5 STD SCREEN 09/29/2013 VIN DESIGN CELL ENGINEER, HOLLEY S 626.7 POSTCOITAL BLEEDING 09/29/2013 VIN DESIGN CELL ENGINEER, HOLLEY S 780.52 INSOMNIA UNSPECIFIED 09/29/2013 VIN DESIGN CELL ENGINEER, HOLLEY S V74.5 STD SCREEN 09/29/2013 LUCIO MALHOTRA APRNIDI A 626.7 POSTCOITAL BLEEDING 09/29/2013 ROSCOE ROSALESN, MARGARITO A 780.52 INSOMNIA UNSPECIFIED 09/29/2013 ROSCOE ROSALESN, MARGARITO A V74.5 STD SCREEN 10/15/2013 VIN ADORNO, HOLLEY S 780.8 GENERALIZED HYPERHIDROSIS 10/15/2013 VIN ROSALESN, HOLLEY S 780.8 GENERALIZED HYPERHIDROSIS 10/15/2013 VIN ADORNO, HOLLEY S 780.8 GENERALIZED HYPERHIDROSIS 10/15/2013 VIN ADORNO, HOLLEY S 780.8 GENERALIZED HYPERHIDROSIS 10/15/2013 VIN ROSALESN, HOLLEY S 780.8 GENERALIZED HYPERHIDROSIS 10/15/2013 ELSY VASQUEZ MD 780.8 GENERALIZED HYPERHIDROSIS 10/15/2013 VIN ROSALESN, HOLLEY S 780.8 GENERALIZED HYPERHIDROSIS 10/15/2013 VIN ROSALESN, HOLLEY S 780.8 GENERALIZED HYPERHIDROSIS 10/15/2013 VIN ADORNO, HOLLEY S 780.8 GENERALIZED HYPERHIDROSIS 10/15/2013 ROSCOE DESIGN CELL ENGINEER, MARGARITO A 780.8 GENERALIZED HYPERHIDROSIS 10/17/2013 VIN DESIGN CELL ENGINEER, HOLLEY S 285.9 ANEMIA 10/17/2013 VIN DESIGN CELL ENGINEER, HOLLEY S 285.9 ANEMIA 10/17/2013 VIN ROSALESN, HOLLEY S 285.9 ANEMIA 10/17/2013 VIN DESIGN CELL ENGINEER, HOLLEY S 285.9 ANEMIA 10/17/2013 VIN DESIGN CELL ENGINEER, HOLLEY S 285.9 ANEMIA 10/17/2013 ELSY VASQUEZ MD 285.9 ANEMIA 10/17/2013 VIN ROSALESN, HOLLEY S 285.9 ANEMIA 10/17/2013 VIN DESIGN CELL ENGINEER, HOLLEY S 285.9 ANEMIA 10/17/2013 VIN DESIGN CELL ENGINEER, HOLLEY S 285.9 ANEMIA 10/17/2013 ROSCOE DESIGN CELL ENGINEER, MARGARITO A 285.9 ANEMIA 04/08/2014 ELSY VASQUEZ MD 780.79 fatigue 04/08/2014 VIN DESIGN CELL ENGINEER, HOLLEY S 780.79 fatigue 04/08/2014 VIN DESIGN CELL ENGINEER, HOLLEY S 780.79 fatigue 04/08/2014 VIN DESIGN CELL ENGINEER, HOLLEY S 780.79 fatigue 04/08/2014 ROSCOE DESIGN CELL ENGINEER, MARGARITO A 780.79 fatigue 10/25/2014 VIN DESIGN CELL ENGINEER, HOLLEY S 386.10 VERTIGO, PERIPHERAL UNSPECIFIED 10/25/2014 VIN DESIGN CELL ENGINEER, HOLLEY S 386.10 VERTIGO, PERIPHERAL UNSPECIFIED 10/25/2014 ROSCOE DESIGN CELL ENGINEER, MARGARITO A 386.10 VERTIGO, PERIPHERAL UNSPECIFIED 12/22/2014 Ot 625.9 12/22/2014 Ot 626.8 12/22/2014 Ot 793.89 12/22/2014 Ot V76.12 12/22/2014 Ot 793.89 12/22/2014 SERAFIN GAMBOA DO Ot 466.0 12/22/2014 SERAFIN GAMBOA DO Ot 487.1 12/22/2014 SERAFIN GAMBOA DO K Ot 786.2 01/31/2015 ROSCOE DESIGN CELL ENGINEER, MARGARITO A 781.0 TREMOR/SPASM 01/31/2015 ROSCOE DESIGN CELL ENGINEER, MARGARITO A 786.09 SNORING 02/07/2015 ROSCOE DESIGN CELL ENGINEER, MARGARITO A 625.0 DYSPAREUNIA 02/07/2015 ROSCOE DESIGN CELL ENGINEER, MARGARITO A 799.81 DECREASED LIBIDO 09/21/2015 Ot 625.9 09/21/2015 Ot 626.8 09/21/2015 Ot 793.89 09/21/2015 Ot V76.12 09/21/2015 Ot 793.89 09/21/2015 Ot 625.9 09/21/2015 Ot 626.8 09/21/2015 Ot 793.89 09/21/2015 Ot V76.12 09/21/2015 Ot 793.89 02/01/2016 MAXWELL CRAWLEY DESIGN CELL ENGINEER Ot N73.9 02/01/2016 MAXWELL CRAWLEY DESIGN CELL ENGINEER Ot N83.20 02/01/2016 SARA MCGRATH Ot G56.01 CARPAL TUNNEL SYNDROME, RIGHT UPPER LIMB 02/01/2016 SARA MCGRATH Ot M54.41 LUMBAGO WITH SCIATICA, RIGHT SIDE 02/01/2016 MAXWELL CRAWLEY DESIGN CELL ENGINEER Ot N73.9 02/01/2016 MAXWELL CRAWLEY DESIGN CELL ENGINEER Ot N83.20 02/02/2016 SARA MCGRATH Ot G56.01 02/02/2016 SARA MCGRATH Ot M54.41 02/23/2016 LIWNOOD PETERS, FRANKIE K Ot 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 02/23/2016 LINWOOD PETERS, FRANKIE K Ot B00.2 02/23/2016 LINWOOD PETERS, FRANKIE Campos Ot B00.2 04/17/2016 SRINIVASA DO, LESLYE K Ot N83.0 FOLLICULAR CYST OF OVARY 04/19/2016 SRINIVASA TIPTON, LESLYE K Ot N83.0 FOLLICULAR CYST OF OVARY 08/29/2016 MAXWELL CRAWLEY DESIGN CELL ENGINEER Ot N73.9 FEMALE PELVIC INFLAMMATORY DISEASE, [facility] 08/29/2016 MAXWELL CRAWLEY DESIGN CELL ENGINEER Ot N83.20 UNSPECIFIED OVARIAN CYSTS 08/29/2016 BERNABE , LESLYE K Ot N83.0 FOLLICULAR CYST OF OVARY 10/19/2016 MAXWELL CRAWLEY DESIGN CELL ENGINEER Ot N73.9 FEMALE PELVIC INFLAMMATORY DISEASE, [facility] 10/19/2016 MAXWELL CRAWLEY A DESIGN CELL ENGINEER Ot N83.20 UNSPECIFIED OVARIAN CYSTS 10/19/2016 BERNABE DO, LESLYE K Ot N83.0 FOLLICULAR CYST OF OVARY 10/19/2016 SARA MCGRATH Ot I10 ESSENTIAL (PRIMARY) HYPERTENSION 10/19/2016 SARA MCGRATH Ot M54.5 LOW BACK PAIN 10/19/2016 SARA MCGRATH Ot R10.31 RIGHT LOWER QUADRANT PAIN 10/19/2016 MAXWELL CRAWLEY DESIGN CELL ENGINEER Ot N73.9 FEMALE PELVIC INFLAMMATORY DISEASE, [facility] 10/19/2016 JAKOPOVIC, MAXWELL A DESIGN CELL ENGINEER Ot N83.20 UNSPECIFIED OVARIAN CYSTS 10/19/2016 SRINIVASA TIPTON, LESLYE K Ot N83.0 FOLLICULAR CYST OF OVARY 10/21/2016 SARA MCGRATH Ot I10 ESSENTIAL (PRIMARY) HYPERTENSION 10/21/2016 SARA MCGRATH Ot M54.5 LOW BACK PAIN 10/21/2016 SARA MCGRATH Ot R10.31 RIGHT LOWER QUADRANT PAIN 10/25/2016 HOLLEY BANUELOS PIPELINE DISPATCH OPERATOR Ot N83.201 UNSPECIFIED OVARIAN CYST, RIGHT SIDE 08/30/2017 MAXWELL CRAWLEY DESIGN CELL ENGINEER Ot N73.9 FEMALE PELVIC INFLAMMATORY DISEASE, [facility] 08/30/2017 MAXWELL CRAWLEY DESIGN CELL ENGINEER Ot N83.20 UNSPECIFIED OVARIAN CYSTS 08/30/2017 SRINIVASA TIPTON, LESLYE K Ot N83.0 FOLLICULAR CYST OF OVARY 08/30/2017 HOLLEY BANUELOS PIPELINE DISPATCH OPERATOR Ot N83.201 UNSPECIFIED OVARIAN CYST, RIGHT SIDE 08/30/2017 SARA MCGRATH Ot E78.00 PURE HYPERCHOLESTEROLEMIA, UNSPECIFIED 08/30/2017 SARA MCGRATH Ot F32.9 MAJOR DEPRESSIVE DISORDER, SINGLE EPISOD 08/30/2017 ASRA MCGRATH Ot I10 ESSENTIAL (PRIMARY) HYPERTENSION 08/30/2017 SARA MCGRATH Ot K59.00 CONSTIPATION, UNSPECIFIED 08/30/2017 SARA MCGRATH Ot K60.2 ANAL FISSURE, UNSPECIFIED 08/30/2017 ASRA MCGRATH Ot Z82.49 FAMILY HX OF ISCHEM HEART DIS AND OTH DI 11/07/2017 HOLLEY BANUELOS PIPELINE DISPATCH OPERATOR Ot M48.061 SPINAL STENOSIS, LUMBAR REGION WITHOUT N 01/21/2018 HOLLEY BANUELOS PIPELINE DISPATCH OPERATOR Ot M48.061 SPINAL STENOSIS, LUMBAR REGION WITHOUT N 02/03/2018 HOLLEY BANUELOS PIPELINE DISPATCH OPERATOR Ot M48.061 SPINAL STENOSIS, LUMBAR REGION WITHOUT N 02/07/2018 CHANDU PETERS, VANE Bar Ot M47.816 SPONDYLOSIS W/O MYELOPATHY OR RADICULOPA 02/07/2018 VANE SCHOFIELD MD, Ot M48.061 SPINAL STENOSIS, LUMBAR REGION WITHOUT N 02/07/2018 VANE SCHOFIELD MD, Ot M51.36 OTHER INTERVERTEBRAL DISC DEGENERATION, Procedures Code Description Performed By Performed On Q0091 PAP SMEAR OBTAIN SMEAR 10/09/2012 92622 PAP SMEAR 10/10/2012 84398 PSYCH DIAGNOSTIC EVALUATION 12/24/2012 84945 PSYTX PT&/FAMILY 45 MINUTES 06/23/2013 Ophthalmo Kendall Johnson 07/07/2013 97867 A1C (IN-HOUSE) 07/07/2013 73589 UA W/ CULTURE IF INDICATED 08/13/2013 16409 CULTURE URINE 08/14/2013 88680 PSYTX PT&/FAMILY 45 MINUTES 08/25/2013 GENERAL D AYDE, ZACH 08/27/2013 NEUROLOGY DIETZ, SANDY 08/27/2013 13090 GC/CHLAM PROBE ([facility]) 09/03/2013 84998 UA LONG DIP 09/03/2013 95115 TRICHOMONAS (IN-HOUSE) 09/29/2013 67173 CULTURE UROGENITAL 10/02/2013 88265 ROUTINE VENIPUNCTURE 10/15/2013 39392 CBC 10/15/2013 31518 ROUTINE VENIPUNCTURE 02/01/2014 86196 CBC 02/01/2014 19039 ROUTINE VENIPUNCTURE 02/02/2014 65582 IRON SERUM 02/02/2014 81141 IRON BNDNG CAP 02/02/2014 47259 VIT B 12 02/02/2014 80725 FOLATE 02/02/2014 72613 FERRITIN 02/02/2014 26319 RETICULOCYTE COUNT 02/02/2014 IRGROUP IRON GROUP (Iron,TIBC, Ferritin) 02/03/2014 45916 ROUTINE VENIPUNCTURE 04/08/2014 68655 TEST, URINE (IN- HOUSE) 04/08/2014 00941 CBC 04/08/2014 75651 TSH 04/08/2014 0574618 IMMATURE PLATELET FRACTION (RESULT ONLY) 04/08/2014 73536 RETICULOCYTE COUNT 04/08/2014 7950387 AN FERRIT 04/09/2014 7733799 ANEM JIC 04/09/2014 5293086 HEMATOLOGY OTHER REPORT 04/09/2014 ANEMIAANA ANEMIA ANALYZER 04/10/2014 41688 ROUTINE VENIPUNCTURE 05/28/2014 48978 CBC 05/28/2014 01999 FERRITIN 05/28/2014 1099076 IMMATURE PLATELET FRACTION (RESULT ONLY) 05/28/2014 1472575 DIFF 05/28/2014 54298 RETICULOCYTE COUNT 05/28/2014 9884163 ANEM [facility] 05/29/2014 2657905 HEMATOLOGY OTHER REPORT 05/31/2014 ANEMIAANA ANEMIA ANALYZER 06/01/2014 17048 ROUTINE VENIPUNCTURE 10/25/2014 92287 CBC 10/25/2014 56938 ROUTINE VENIPUNCTURE 11/01/2014 8262123 GFR CALC (RESULT ONLY) 11/01/2014 37153 CMP 11/01/2014 34230 LIPID PANEL 11/01/2014 72210 TSH 11/01/2014 18593 A1C (RML) 11/01/2014 92133 SLEEP STUDY ([facility]- SLEEP STUDY) 02/07/2015 Results Test Result Range Comp. Metabolic Panel (14) - 08/28/16 17:44 Glucose, Serum 77 mg/dL 65-99 BUN 11 mg/dL 6-24 Creatinine, Serum 0.57 mg/dL 0.57-1.00 eGFR If NonAfricn Am 112 mL/min/1.73 >59 eGFR If Africn Am 129 mL/min/1.73 >59 BUN/Creatinine Ratio 19 9-23 Sodium, Serum 140 mmol/L 136-144 Potassium, Serum 3.9 mmol/L 3.5-5.2 Chloride, Serum 102 mmol/L 97-106 Carbon Dioxide, Total 23 mmol/L 18-29 Calcium, Serum 8.9 mg/dL 8.7-10.2 Protein, Total, Serum 6.9 g/dL 6.0-8.5 Albumin, Serum 4.4 g/dL 3.5-5.5 Globulin, Total 2.5 g/dL 1.5-4.5 A/G Ratio 1.8 1.1-2.5 Bilirubin, Total 0.3 mg/dL 0.0-1.2 Alkaline Phosphatase, S 55 IU/L 39-117 AST (SGOT) 17 IU/L 0-40 ALT (SGPT) 7 IU/L 0-32 Lipid Panel - 08/28/16 17:44 Cholesterol, Total 252 mg/dL 100-199 Triglycerides 146 mg/dL 0-149 HDL Cholesterol 76 mg/dL >39 VLDL Cholesterol Silas 29 mg/dL 5-40 LDL Cholesterol Calc 147 mg/dL 0-99 Complete urinalysis with reflex to culture - 10/19/16 13:37 Urine color determination YELLOW NRG Urine clarity determination CLEAR NRG Urine pH measurement by test strip 7 5-9 Specific gravity of urine by test strip 1.010 1.016- 1.022 Urine protein assay by test strip, semi-quantitative NEGATIVE NEGATIVE Urine glucose detection by automated test strip NEGATIVE NEGATIVE Erythrocytes detection in urine sediment by light microscopy NEGATIVE NEGATIVE Urine ketones detection by automated test strip NEGATIVE NEGATIVE Urine nitrite detection by test strip NEGATIVE NEGATIVE Urine total bilirubin detection by test strip NEGATIVE NEGATIVE Urine urobilinogen measurement by automated test strip (mass/volume) NORMAL NORMAL Urine leukocyte esterase detection by dipstick NEGATIVE NEGATIVE Automated urine sediment erythrocyte count by microscopy (number/high power field) NONE NRG Automated urine sediment leukocyte count by microscopy (number/high power field ) NONE NRG Bacteria detection in urine sediment by light microscopy NEGATIVE NRG Squamous epithelial cells detection in urine sediment by light microscopy 0-2 NRG Crystals detection in urine sediment by light microscopy PRESENT NRG Casts detection in urine sediment by light microscopy NONE NRG Mucus detection in urine sediment by light microscopy NEGATIVE NRG Complete urinalysis with reflex to culture NO NRG Amorphous sediment detection in urine sediment by light microscopy FEW SHWETHA URATES [facility] Comprehensive metabolic panel - 10/19/16 14:53 Serum or plasma sodium measurement (moles/volume) 141 mmol/L 135-145 Serum or plasma potassium measurement (moles/volume) 3.7 mmol/L 3.6-5.0 Serum or plasma chloride measurement (moles/volume) 109 mmol/L 98-107 Carbon dioxide 20 mmol/L 21-32 Serum or plasma anion gap determination (moles/volume) 12 mmol/L 5-14 Serum or plasma urea nitrogen measurement (mass/volume) 18 mg/dL 7-18 Serum or plasma creatinine measurement (mass/volume) 0.61 mg/dL 0.60-1.30 Serum or plasma urea nitrogen/creatinine mass ratio 30 NRG Serum or plasma creatinine measurement with calculation of estimated glomerular filtration rate > NRG Serum or plasma glucose measurement (mass/volume) 80 mg/dL 70-105 Serum or plasma calcium measurement (mass/volume) 9.0 mg/dL 8.5-10.1 Serum or plasma total bilirubin measurement (mass/volume) 0.4 mg/dL 0.1-1.0 Serum or plasma alkaline phosphatase measurement (enzymatic activity/volume) 59 U/L 40-136 Serum or plasma aspartate aminotransferase measurement (enzymatic activity/ volume) 15 U/L 5-34 Serum or plasma alanine aminotransferase measurement (enzymatic activity/volume ) 10 U/L 0-55 Serum or plasma protein measurement (mass/volume) 7.4 g/dL 6.4-8.2 Serum or plasma albumin measurement (mass/volume) 4.5 g/dL 3.2-4.5 Serum or plasma C reactive protein measurement (mass/volume) - 10/19/16 14:53 Serum or plasma C reactive protein measurement (mass/volume) 0.12 mg /dL 0.00-0.50 Complete blood count (CBC) with automated white blood cell (WBC) differential - 10/19/16 15:37 Blood leukocytes automated count (number/volume) 7.5 10*3/uL 4.3-11.0 Blood erythrocytes automated count (number/volume) 4.26 10*6/uL 4.35-5.85 Venous blood hemoglobin measurement (mass/volume) 12.7 g/dL 11.5-16.0 Blood hematocrit (volume fraction) 38 % 35-52 Automated erythrocyte mean corpuscular volume 89 [foz_us] 80-99 Automated erythrocyte mean corpuscular hemoglobin (mass per erythrocyte) 30 pg 25-34 Automated erythrocyte mean corpuscular hemoglobin concentration measurement ( mass/volume) 33 g/dL 32-36 Automated erythrocyte distribution width ratio 13.3 % 10.0-14.5 Automated blood platelet count (count/volume) 229 10*3/uL 130-400 Automated blood platelet mean volume measurement 12.4 [foz_us] 7.4-10.4 Automated blood neutrophils/100 leukocytes 57 % 42-75 Automated blood lymphocytes/100 leukocytes 31 % 12-44 Blood monocytes/100 leukocytes 8 % 0-12 Automated blood eosinophils/100 leukocytes 4 % 0-10 Automated blood basophils/100 leukocytes 1 % 0-10 Blood neutrophils automated count (number/volume) 4.3 10*3 1.8-7.8 Blood lymphocytes automated count (number/volume) 2.3 10*3 1.0-4.0 Blood monocytes automated count (number/volume) 0.6 10*3 0.0-1.0 Automated eosinophil count 0.3 10*3/uL 0.0-0.3 Automated blood basophil count (count/volume) 0.0 10*3/uL 0.0-0.1 Urine Culture, Routine - 10/24/16 10:02 Urine Culture, Routine Note CULTURE, URINE - 10/07/17 12:53 CULTURE, URINE, ROUTINE SEE NOTE NRG Encounters ACCT No. Visit Date/Time Discharge Status Pt. Type Provider Facility Loc./Unit Complaint [id number] 02/07/2015 10:41:00 02/07/2015 23:59:59 CLS Outpatient ROSCOE TILAMARGARITO Mukesh [id number] 11/01/2014 11:16:00 11/01/2014 23:59:59 CLS Outpatient MIKE BANUELOS APRNNDA S [id number] 10/25/2014 13:09:00 10/25/2014 23:59:59 CLS Outpatient MIKE BANUELOS APRNNDA S [id number] 05/28/2014 15:38:00 05/28/2014 23:59:59 CLS Outpatient VIN ADORNO HOLLEY S [id number] 04/08/2014 10:14:00 04/08/2014 23:59:59 CLS Outpatient ELSY VASQUEZ MD [id number] 02/03/2014 11:02:00 02/03/2014 23:59:59 CLS Outpatient VIN ADORNO HOLLEY S [id number] 02/01/2014 11:35:00 02/01/2014 23:59:59 CLS Outpatient MIKE BANUELOS APRNNDA S [id number] 10/15/2013 10:05:00 10/15/2013 23:59:59 CLS Outpatient VIN ADORNO HOLLEY S [id number] 10/15/2013 10:05:00 10/15/2013 23:59:59 CLS Outpatient VIN ADORNO HOLLEY S [id number] 09/25/2013 00:00:00 09/25/2013 23:59:59 CLS Outpatient VINMIA ADORNO HOLLEY S [id number] 09/09/2013 09:49:00 09/09/2013 23:59:59 CLS Outpatient GOVIND MCFADDEN DDS [id number] 09/03/2013 09:36:00 09/03/2013 23:59:59 CLS Outpatient VINMIA ADORNO HOLLEY S [id number] 09/03/2013 09:36:00 09/03/2013 23:59:59 CLS Outpatient VIN DESIGN CELL ENGINEERHOLLEY S [id number] 08/27/2013 12:18:00 08/27/2013 23:59:59 CLS Outpatient SRINIVASA DO LESLYE Campos [id number] 08/25/2013 16:29:00 08/25/2013 23:59:59 CLS Outpatient EMMA RICHIE DECKER [id number] 08/13/2013 13:57:00 08/13/2013 23:59:59 CLS Outpatient HOLLEY BANUELOS APRN S [id number] 07/07/2013 08:07:00 07/07/2013 23:59:59 CLS Outpatient VIN ADORNO HOLLEY S [id number] 12/19/2012 10:53:00 12/19/2012 23:59:59 CLS Outpatient LETICIA ZELAYA LCPC [id number] 10/08/2012 14:46:00 10/08/2012 23:59:59 CLS Outpatient VIN ADORNO HOLLEY S [id number] 10/08/2012 14:46:00 10/08/2012 23:59:59 CLS Outpatient [id number] 06/19/2013 15:46:00 Document Registration [id number] 03/05/2013 07:58:00 Document Registration [id number] 10/26/2016 05:05:00 Document Registration [id number] 02/17/2018 09:24:00 02/17/2018 23:59:59 CLS Outpatient VANE SCHOFIELD MD, V Via [facility] REHAB LUMBAR SPINAL STENOSIS; LOW BACK PAIN [id number] 02/03/2018 09:09:00 02/03/2018 23:59:59 CLS Outpatient VANE SCHOFIELD MD, V [facility] RAD M54.5 [id number] 10/23/2017 14:46:00 10/23/2017 23:59:59 CLS Preadmit LESLYE BERNABE DO [facility] REHAB BACK PAIN [id number] 10/21/2017 09:19:00 10/21/2017 23:59:59 CLS Outpatient HOLLEY BANUELOS [facility] RAD LOW BACK PAIN [id number] 10/15/2017 12:41:00 10/15/2017 23:59:59 CLS Preadmit DAWIT PRYOR [facility] RAD Z01.89 IMAGING STUDY TO RESTAGE TUMOR [id number] 10/01/2017 07:15:00 10/01/2017 23:59:59 CLS Preadmit HOLLEY BANUELOS [facility] RAD LOW BACK PAIN M54.5 [id number] 08/30/2017 13:21:00 08/30/2017 15:33:00 DIS Emergency SARA MCGRATH [facility] ER BLOOD IN STOOL [id number] 10/24/2016 13:23:00 10/24/2016 23:59:59 CLS Outpatient HOLLEY BANUELOS [facility] RAD OVARIAN CYST RT [id number] 10/19/2016 12:38:00 10/19/2016 15:56:00 DIS Emergency SARA MCGRATH [facility] ER RIGHT FLANK/BACK PAIN [id number] 09/06/2016 09:30:00 09/06/2016 23:59:59 CLS Preadmit HOLLEY BANUELOS [facility] REHAB B SCIATICA PAIN [id number] 04/13/2016 12:53:00 04/13/2016 23:59:59 CLS Outpatient LESLYE BERNABE DO [facility] RAD HX OF OVARIAN CYST [id number] 02/23/2016 07:56:00 02/23/2016 10:20:00 DIS Emergency FRANKIE PALUMBO MD [facility] ER SORE THROAT [id number] 02/01/2016 17:47:00 02/01/2016 19:19:00 DIS Emergency SARA MCGRATH [facility] ER RT WRIST PAIN [id number] 12/29/2015 13:19:00 12/29/2015 23:59:59 CLS Outpatient MAXWELL CRAWLEY DESIGN CELL ENGINEER [facility] RAD 6 WEEK F/U LEFT OVARIAN CYST [id number] 09/21/2015 10:26:00 09/21/2015 23:59:59 CLS Outpatient MAXWELL CRAWLEY DESIGN CELL ENGINEER [facility] RAD [id number] 09/21/2015 10:21:00 09/21/2015 23:59:59 CLS Outpatient MAXWELL CRAWLEY APRN [facility] RAD PELVIC INFLAMMATORY DISEASE [id number] 12/22/2014 09:15:00 12/22/2014 10:22:00 DIS Emergency SERAFIN GAMBOA DO [facility] ER [id number] 03/26/2013 07:52:00 03/26/2013 10:19:00 DIS Emergency WOLF OWENS MD [facility] ER [id number] 01/14/2013 14:16:00 Document Registration [id number] 12/31/2012 13:57:00 Document Registration [id number] 02/15/2018 14:25:00 02/15/2018 23:59:59 CLS Outpatient HOLLEY BANUELOS APRN [facility] [id number] 10/07/2017 11:40:00 Document Registration [id number] 08/29/2016 08:06:00 Document Registration
== END 2018-02-22 10:49 | disposition home or self-care (01) ==
LOC: EDUNIT# 08:55 → ER 08:56
DX: J06.9 Acute upper respiratory infection, unspecified (principal); J11.1 Influenza due to unidentified influenza virus with other respiratory manifestations; J40 Bronchitis, not specified as acute or chronic; E78.00 Pure hypercholesterolemia, unspecified; I10 Essential (primary) hypertension; F32.9 Major depressive disorder, single episode, unspecified; Z98.890 Other specified postprocedural states; Z87.19 Personal history of other diseases of the digestive system
CPT/HCPCS: 36415; 71045; 85025; 87430; 87804

== ENCOUNTER 2018-02-25 10:28 | Outpatient (RCR) | payer MEDICAID | END 2018-03-13 11:11 | disposition home or self-care (01) | PROVIDERS: ATTEND Neurological Surgery | DX: M51.36 Other intervertebral disc degeneration, lumbar region (principal); M47.816 Spondylosis without myelopathy or radiculopathy, lumbar region; M48.061 Spinal stenosis, lumbar region without neurogenic claudication ==

== ENCOUNTER 2018-06-11 10:55 | Emergency (ER) | payer MEDICAID ==
[~2018-06-11] VITALS: Ht 157.5 cm; Wt 72.6 kg
[2018-06-11 11:32] LABS: BILIRUBIN,URINE NEGATIVE (NEGATIVE); CLARITY,URINE CLEAR; COLOR,URINE YELLOW; GLUCOSE, URINE (UA) NEGATIVE (NEGATIVE); KETONES,URINE NEGATIVE (NEGATIVE); LEUKOCYTE ESTERASE ,URINE 2+ (NEGATIVE); NITRITE,URINE NEGATIVE (NEGATIVE); PH,URINE 6 (5-9); PROTEIN,URINE NEGATIVE (NEGATIVE); UROBILINOGEN,URINE NORMAL (NORMAL)
[2018-06-11 11:42] LABS: BACTERIA,URINE NEGATIVE /HPF; RBC,URINE RARE /HPF; WBC,URINE RARE /HPF
[2018-06-11] MEDS ORDERED: KETOROLAC 30 MG/ML VIAL IVP STA (12:21)
[2018-06-11 12:26] LABS: BASOPHILS % (AUTO) 0 % (0-10); EOSINOPHILS # (AUTO) 0.1 10^3/uL (0.0-0.3); EOSINOPHILS % (AUTO) 3 % (0-10); HEMATOCRIT 37 % (35-52); HEMOGLOBIN 12.7 G/DL (11.5-16.0); LYMPHOCYTES # (AUTO) 1.7 X 10^3 (1.0-4.0); LYMPHOCYTES % (AUTO) 31 % (12-44); MEAN CORPUSCULAR HEMOGLOBIN 31 PG (25-34); MEAN CORPUSCULAR HGB CONC 34 G/DL (32-36); MEAN CORPUSCULAR VOLUME 89 FL (80-99); MEAN PLATELET VOLUME 12.3 FL (7.4-10.4); MONOCYTES # (AUTO) 0.5 X 10^3 (0.0-1.0); MONOCYTES % (AUTO) 9 % (0-12); NEUTROPHILS # (AUTO) 3.2 X 10^3 (1.8-7.8); NEUTROPHILS % (AUTO) 57 % (42-75); PLATELET COUNT 221 10^3/uL (130-400); RED BLOOD COUNT 4.14 10^6/uL (4.35-5.85); RED CELL DISTRIBUTION WIDTH 13.2 % (10.0-14.5); WHITE BLOOD COUNT 5.7 10^3/uL (4.3-11.0)
[2018-06-11 12:40] LABS: ALANINE AMINOTRANSFERASE 50 U/L (0-55); ALBUMIN 4.1 GM/DL (3.2-4.5); ALKALINE PHOSPHATASE 71 U/L (40-136); BILIRUBIN,TOTAL 0.6 MG/DL (0.1-1.0); BUN/CREATININE RATIO 14; CALCIUM 8.9 MG/DL (8.5-10.1); CARBON DIOXIDE 22 MMOL/L (21-32); CHLORIDE 108 MMOL/L (98-107); CREATININE SERUM 0.64 MG/DL (0.60-1.30); GFR ESTIMATED > 60; GLUCOSE 100 MG/DL (70-105); POTASSIUM 3.9 MMOL/L (3.6-5.0); SODIUM 136 MMOL/L (135-145)
--- NOTE | 2018-06-11 12:44 | Diagnostic Imaging Report ---
INDICATION: Left flank pain. EXAMINATION: KUB at 1:32 PM. FINDINGS: The bowel gas pattern is normal. There are no pathologic masses or calcifications. The lung bases are clear. IMPRESSION: Negative abdomen. Dictated by: Dictated on workstation # [id number]
[2018-06-11] MEDS ORDERED: DICYCLOMINE 10 MG (BENTYL) CAP PO STA (13:14)
--- NOTE | 2018-06-11 13:14 | ED Abdominal Pain ---
General Chief Complaint: Abdominal/GI Problems Stated Complaint: LEFT SIDE PAIN Nursing Triage Note: PT AMB TO ROOM #5 W/O DIFFICULTY. A&OX4. CO LT SIDE ABD PAIN WRAPPING AROUND TO LT FLANK SINCE SATURDAY. PT REPORTS SHE WAS SEEN AT [facility] ON SATURDAY AND XRAY WAS TAKEN. PT REPORTS HER XRAY SHOWED "BLOCKAGE IN HER BOWL" AND CLINIC PCP INSTRUCTED HER TO TAKE MIRALAX. PT CO URINARY URGENCY AND NAUSEA. REPORTS SHE HAS NOT PASSED A BM SINCE 06/07/18. DENIES EPISODES OF VOMITING. Sepsis Screen: No Definite Risk History of Present Illness Date Seen by Provider: Jun 11, 2018 Time Seen by Provider: 12:15 Initial Comments 48-year-old female reports for abdominal pain. She states it is on the left flank and wraps around her left lower quadrant. She was evaluated 2 days ago at [facility] and was told that she possibly had a bowel obstruction. She has mild nausea and urinary urgency. She reports constipation, four days but passing flatus. Timing/Duration: Getting Worse Severity/Quality: Mild Location: LLQ Radiation: Flank (left) Associated Symptoms: Denies Symptoms Allergies and Home Medications Allergies Coded Allergies: No Known Drug Allergies (Unverified , 03/26/13) Home Medications Dicyclomine HCl 10 Mg Capsule, 10 MG PO Q6H PRN for ABDOMINAL PAIN Prescribed by: OCTAVIO YBARRA on 06/11/18 1404 Hydrocortisone/Pramoxine 30 Gm Cream.appl, 30 GM RC QID apply to hemorrhoids QID x7-10 d Prescribed by: SARA QUEZADA on 08/30/17 1526 Lidocaine 15 Gm Cream..g., 15 GM TP UD PRN for pain apply to the affected area QID prn pain Prescribed by: SARA QUEZADA on 08/30/17 1526 Polyethylene Glycol 3350 119 Gm Powder, 17 GM PO HS PRN for CONSTIPATION-1ST LINE Prescribed by: SARA QUEZADA on 08/30/17 1526 Tramadol HCl 50 Mg Tablet, 50 MG PO Q4H PRN for PAIN Prescribed by: SARA QUEZADA on 10/19/16 1552 Patient Home Medication List Home Medication List Reviewed: Yes Review of Systems Constitutional: no symptoms reported, see HPI Gastrointestinal: See HPI, Abdomen Distended, Abdominal Pain All Other Systems Reviewed Negative Unless Noted: Yes Past Xujsusb-Kmtbgu-Usvdnv Hx Past Med/Social Hx: Reviewed Nursing Past Med/Soc Hx Patient Social History Alcohol Use: Rarely Uses Recreational Drug Use: No Smoking Status: Never a Smoker 2nd Hand Smoke Exposure: No Recent Foreign Travel: No Contact w/Someone Who Travel: No Recent Infectious Disease Expo: No Recent Hopitalizations: No Physical Abuse: No Sexual Abuse: No Seasonal Allergies Seasonal Allergies: No Past Medical History Surgeries: Yes (HYSTEROSCOPY) Orthopedic, Tubal Ligation Respiratory: No Cardiac: Yes High Cholesterol, Hypertension Neurological: No Reproductive Disorders: No Gastrointestinal: Yes Hemorrhoids Musculoskeletal: Yes (BACK SX) Chronic Back Pain Endocrine: No Cancer: No Psychosocial: Yes Depression Nursing Suicide Risk Score: 0 Integumentary: No Blood Disorders: No Family Medical History Heart Disease, Cancer, Diabetes, Hypertension Physical Exam Vital Signs Vital Signs - First Documented 06/11/18 11:17 Temp 98.6 Pulse 80 Resp 15 B/P (MAP) 124/73 (90) Pulse Ox 100 O2 Delivery Room Air Capillary Refill : Less Than 3 Seconds Height/Weight/BMI Height: 5'2.00" Weight: 160lbs. oz. 72.143985ow; 29.28 BMI Method:Stated General Appearance: WD/WN, no apparent distress HEENT: PERRL/EOMI, normal ENT inspection, TMs normal, pharynx normal Neck: non-tender, full range of motion, supple, normal inspection Respiratory: chest non-tender, lungs clear, normal breath sounds Cardiovascular: normal peripheral pulses, regular rate, rhythm Gastrointestinal: normal bowel sounds, soft; No rebound; tenderness (left lower quadrant) Back: normal inspection, no vertebral tenderness, CVA tenderness (L) Neurologic/Psychiatric: no motor/sensory deficits, alert, normal mood/affect, oriented x 3 Skin: normal color, warm/dry Progress/Results/Core Measures Results/Orders Lab Results Laboratory Tests Test 06/11/18 11:28 06/11/18 11:33 Range/Units Urine Color YELLOW Urine Clarity CLEAR Urine pH 6 5-9 Urine Specific [place] 1.025 H 1.016-1.022 Urine Protein NEGATIVE NEGATIVE Urine Glucose (UA) NEGATIVE NEGATIVE Urine Ketones NEGATIVE NEGATIVE Urine Nitrite NEGATIVE NEGATIVE Urine Bilirubin NEGATIVE NEGATIVE Urine Urobilinogen NORMAL NORMAL MG/DL Urine Leukocyte Esterase 2+ H NEGATIVE Urine RBC (Auto) NEGATIVE NEGATIVE Urine RBC RARE /HPF Urine WBC RARE /HPF Urine Squamous Epithelial Cells 5-10 /HPF Urine Crystals NONE /LPF Urine Bacteria NEGATIVE /HPF Urine Casts NONE /LPF Urine Mucus SMALL H /LPF Urine Culture Indicated NO White Blood Count 5.7 4.3-11.0 10^3/uL Red Blood Count 4.14 L 4.35-5.85 10^6/uL Hemoglobin 12.7 11.5-16.0 G/DL Hematocrit 37 35-52 % Mean Corpuscular Volume 89 80-99 FL Mean Corpuscular Hemoglobin 31 25-34 PG Mean Corpuscular Hemoglobin Concent 34 32-36 G/DL Red Cell Distribution Width 13.2 10.0-14.5 % Platelet Count 221 130-400 10^3/uL Mean Platelet Volume 12.3 H 7.4-10.4 FL Neutrophils (%) (Auto) 57 42-75 % Lymphocytes (%) (Auto) 31 12-44 % Monocytes (%) (Auto) 9 0-12 % Eosinophils (%) (Auto) 3 0-10 % Basophils (%) (Auto) 0 0-10 % Neutrophils # (Auto) 3.2 1.8-7.8 X 10^3 Lymphocytes # (Auto) 1.7 1.0-4.0 X 10^3 Monocytes # (Auto) 0.5 0.0-1.0 X 10^3 Eosinophils # (Auto) 0.1 0.0-0.3 10^3/uL Basophils # (Auto) 0.0 0.0-0.1 10^3/uL Sodium Level 136 135-145 MMOL/L Potassium Level 3.9 3.6-5.0 MMOL/L Chloride Level 108 H 98-107 MMOL/L Carbon Dioxide Level 22 21-32 MMOL/L Anion Gap 6 5-14 MMOL/L Blood Urea Nitrogen 9 7-18 MG/DL Creatinine 0.64 0.60-1.30 MG/DL Estimat Glomerular Filtration Rate > 60 BUN/Creatinine Ratio 14 Glucose Level 100 70-105 MG/DL Calcium Level 8.9 8.5-10.1 MG/DL Total Bilirubin 0.6 0.1-1.0 MG/DL Aspartate Amino Transf (AST/SGOT) 31 5-34 U/L Alanine Aminotransferase (ALT/SGPT) 50 0-55 U/L Alkaline Phosphatase 71 40-136 U/L Total Protein 7.0 6.4-8.2 GM/DL Albumin 4.1 3.2-4.5 GM/DL My Orders Orders - OCTAVIO YBARRA Cbc With Automated Diff (06/11/18 12:21) Comprehensive Metabolic Panel (06/11/18 12:21) Ketorolac Injection (Toradol Injection) (06/11/18 12:21) Abdomen/Kub 1view (06/11/18 12:21) Dicyclomine Capsule (Bentyl Capsule) (06/11/18 13:14) Vital Signs/I&O 06/11/18 06/11/18 11:17 14:30 Temp 98.6 98.6 Pulse 80 59 Resp 15 15 B/P (MAP) 124/73 (90) 108/71 (90) Pulse Ox 100 100 O2 Delivery Room Air Room Air Blood Pressure Mean: 90 Progress Progress Note : Time: 12:15 Progress Note Initial evaluation completed, will obtain labs and KUB. Toradol 30 mg IV for pain. Discussed the positive bowel sounds in the form patient is highly unlikely she has a bowel obstruction. 1300 labs all essentially normal, KUB does not show bowel obstruction or nephro/ urolithiasis. Will give Bentyl and reevaluate. 1415 patient reports less abdominal pain since taking the Bentyl. She is eating ice chips and drinking water with no nausea or vomiting. Discharge instructions and return precautions reviewed with her. Per new Guidelines, I encouraged her to consider getting a colonoscopy if her symptoms are not improving or worsen. Diagnostic Imaging Diagonstic Imaging: Xray Plain Films/CT/US/NM/MRI: abdomen Comments NAME: FLORENCIO POSEY [facility] REC#: [id number] PT STATUS: REG ER : 1970 PHYSICIAN: OCTAVIO YBARRA ADMIT DATE: 06/11/18/ER Draft Date of Exam:06/11/18 ABDOMEN/KUB 1VIEW INDICATION: Left flank pain. EXAMINATION: KUB at 1:32 PM. FINDINGS: The bowel gas pattern is normal. There are no pathologic masses or calcifications. The lung bases are clear. IMPRESSION: Negative abdomen. Dictated on workstation # [id number] Dict: 06/11/18 1241 Trans: 06/11/18 1244 [id number] Interpreted by: SHAUN LOPEZ MD Electronically signed by: Reviewed: Reviewed by Me Departure Impression Primary Impression: Viral gastroenteritis Additional Impression: Constipation Qualified Codes: K59.00 - Constipation, unspecified Disposition: HOME, SELF-CARE Condition: Stable Departure-Patient Inst. Decision time for Depature: 14:15 Referrals: [facility] (PCP) Primary Care Physician HOLLEY BANUELOS (Family) Primary Care Physician Patient Instructions: Acute Abdomen (Belly Pain), Adult (DC), Diarrhea in Adolescents and Adults Add. Discharge Instructions: Clear liquid diet for the next 4-6 hours, then bland diet as tolerated. Eat 1 serving of yogurt with active cultures daily. Stool softener, 1 tablet twice daily. You may use MiraLAX one capful daily until having stools regularly. Use Bentyl as needed every 6 hours. Alternate between Tylenol 650 mg and ibuprofen 600 mg every 4 hours for pain or fever. Follow-up with your primary care provider in 2-3 days if symptoms are not improving or sooner if they worsen. Return to the emergency department if symptoms worsen, fever greater than 101 not relieved by Tylenol or ibuprofen, persistent nausea, diarrhea and vomiting, or new concerns. All discharge instructions reviewed with patient and/or family. Voiced understanding. Scripts Dicyclomine HCl (Dicyclomine HCl) 10 Mg Capsule 10 MG PO Q6H PRN for ABDOMINAL PAIN, #15 CAP 0 Refills Prov: OCTAVIO YBARRA 06/11/18 Work/School Note: Work Release Form Date Seen in the Emergency Department: Jun 11, 2018 Return to Work: Jun 12, 2018 Restrictions: No Restrictions OCTAVIO YBARRA Jun 11, 2018 13:13
[2018-06-11] MEDS ORDERED: DICY10CA12 PO (14:04)
[2018-06-11 14:30] VITALS: BP 108/71
--- OUTSIDE RECORDS SUMMARY | 2018-06-12 00:33 | XMS REPORT | Clinical Summary ---
Author Author [facility] Organization [facility] Address Unknown Phone Unavailable Care Team Providers Care Director Of Distribution Name Role Phone Helen Rondon RN Unavailable Unavailable Fely Gray MD Unavailable Flor Patel MD PCP Source Comments Some departments are not documenting in the electronic medical record. If you do not see the information that you expected, contact Release of Information in the Health Information Management department at [phone] for further assistance in locating additional records.[facility] Allergies No Known Allergies Current [...]
== END 2018-06-11 14:30 | disposition home or self-care (01) ==
LOC: EDUNIT# 10:55 → ER 10:57
DX: A08.4 Viral intestinal infection, unspecified (principal); K59.00 Constipation, unspecified; E78.00 Pure hypercholesterolemia, unspecified; I10 Essential (primary) hypertension; F32.9 Major depressive disorder, single episode, unspecified; Z82.49 Family history of ischemic heart disease and other diseases of the circulatory system; Z87.19 Personal history of other diseases of the digestive system; Z98.51 Tubal ligation status
CPT/HCPCS: 36415; 74018; 80053; 81000; 85025; 96374

== ENCOUNTER 2018-08-06 21:00 | Emergency (ER) | payer MEDICAID ==
[~2018-08-06] VITALS: Ht 160 cm; Wt 72.6 kg
[~2018-08-06 21:00] MED LIST changes: +DICY10CA12 PO
[2018-08-06] MEDS ORDERED: NITROGLYCERIN 0.4 MG SL TABS BTL 25'S SL ONE (21:05)
[2018-08-06] MEDS ORDERED: ASPIRIN 81 MG CHEW (CHILDREN'S ASA) ONE (21:05)
--- OUTSIDE RECORDS SUMMARY | 2018-08-06 21:05 | XMS REPORT | Clinical Summary ---
Author Author [facility] Organization [facility] Address Unknown Phone Unavailable Care Team Providers Care Aquatic Instructor Name Role Phone Helen Rondon RN Unavailable Unavailable Fely Gray MD Unavailable Flor Patel MD PCP Source Comments Some departments are not documenting in the electronic medical record. If you do not see the information that you expected, contact Release of Information in the Health Information Management department at [phone] for further assistance in locating additional records.[facility] Allergies No Known Allergies Current [...]
[2018-08-06] MEDS: NITROGLYCERIN 0.4 MG SL TABS BTL 25'S SL PRN ×2 (21:23→21:28)
[2018-08-06] MEDS ORDERED: ASPIRIN 81 MG CHEW (CHILDREN'S ASA) PO ONE (21:30)
[2018-08-06 21:32] LABS: BASOPHILS % (AUTO) 0 % (0-10); EOSINOPHILS # (AUTO) 0.2 10^3/uL (0.0-0.3); EOSINOPHILS % (AUTO) 2 % (0-10); HEMATOCRIT 39 % (35-52); HEMOGLOBIN 13.6 G/DL (11.5-16.0); LYMPHOCYTES # (AUTO) 2.6 X 10^3 (1.0-4.0); LYMPHOCYTES % (AUTO) 30 % (12-44); MEAN CORPUSCULAR HEMOGLOBIN 31 PG (25-34); MEAN CORPUSCULAR HGB CONC 35 G/DL (32-36); MEAN CORPUSCULAR VOLUME 89 FL (80-99); MEAN PLATELET VOLUME 12.3 FL (7.4-10.4); MONOCYTES # (AUTO) 0.8 X 10^3 (0.0-1.0); MONOCYTES % (AUTO) 9 % (0-12); NEUTROPHILS # (AUTO) 5.1 X 10^3 (1.8-7.8); NEUTROPHILS % (AUTO) 59 % (42-75); PLATELET COUNT 250 10^3/uL (130-400); RED BLOOD COUNT 4.34 10^6/uL (4.35-5.85); RED CELL DISTRIBUTION WIDTH 13.1 % (10.0-14.5); WHITE BLOOD COUNT 8.7 10^3/uL (4.3-11.0)
--- NOTE | 2018-08-06 21:36 | ED Chest Pain ---
General Stated Complaint: CP,SOB Source: patient Exam Limitations: no limitations History of Present Illness Date Seen by Provider: Aug 06, 2018 Time Seen by Provider: 21:05 Initial Comments Here with onset of central chest pain that she describes as burning and persistent since this morning. This evening she started getting short of breath and that caused her to come to the ED. States the pain radiates to the back and now is 10 out of 10. Denies nausea or vomiting. Does have history of chronic constipation. Timing/Duration: 12 hours Severity/Quality: moderate, severe Location: central Radiation: back Activities at Onset: none Prior CP/Workup: no prior chest pain, no prior cardiac workup Modifying Factors: improves with rest ASA po PHOTO CARTOGRAPHER: No NTG SL PHOTO CARTOGRAPHER: No Associated Symptoms: abdominal pain, back pain; No fever/chills, No nausea/ vomiting; shortness of breath; No weakness Allergies and Home Medications Allergies Coded Allergies: No Known Drug Allergies (Unverified , 03/26/13) Home Medications Dicyclomine HCl 10 Mg Capsule, 10 MG PO Q6H PRN for ABDOMINAL PAIN Prescribed by: OCTAVIO YBARRA on 06/11/18 1404 Hydrocortisone/Pramoxine 30 Gm Cream.appl, 30 GM RC QID apply to hemorrhoids QID x7-10 d Prescribed by: SARA QUEZADA on 08/30/17 1526 Lidocaine 15 Gm Cream..g., 15 GM TP UD PRN for pain apply to the affected area QID prn pain Prescribed by: SARA QUEZADA on 08/30/17 1526 Polyethylene Glycol 3350 119 Gm Powder, 17 GM PO HS PRN for CONSTIPATION-1ST LINE Prescribed by: SARA QUEZADA on 08/30/17 1526 Tramadol HCl 50 Mg Tablet, 50 MG PO Q4H PRN for PAIN Prescribed by: SARA QUEZADA on 10/19/16 1552 Tramadol HCl 50 Mg Tablet, 50 MG PO Q6H PRN for PAIN Prescribed by: SHAUN RAMÍREZ on 08/07/18 0033 Patient Home Medication List Home Medication List Reviewed: Yes Review of Systems Review of Systems Constitutional: see HPI; No chills, No fever EENTM: No Symptoms Reported Respiratory: No Symptoms Reported Cardiovascular: No Symptoms Reported Gastrointestinal: See HPI, Abdominal Pain; Denies Diarrhea; Nausea Genitourinary: No Symptoms Reported Musculoskeletal: no symptoms reported Skin: no symptoms reported All Other Systems Reviewed Negative Unless Noted: Yes Past Ibleskc-Ivtsac-Inynnd Hx Past Med/Social Hx: Reviewed Nursing Past Med/Soc Hx Patient Social History Alcohol Use: Occasionally Uses Recreational Drug Use: No Smoking Status: Never a Smoker 2nd Hand Smoke Exposure: No Recent Foreign Travel: No Contact w/Someone Who Travel: No Recent Hopitalizations: No Seasonal Allergies Seasonal Allergies: No Past Medical History Surgeries: Yes (HYSTEROSCOPY) Orthopedic, Tubal Ligation Respiratory: No Cardiac: Yes High Cholesterol, Hypertension Neurological: No Reproductive Disorders: No Gastrointestinal: Yes Hemorrhoids Musculoskeletal: Yes (BACK SX) Chronic Back Pain Endocrine: No Cancer: No Psychosocial: Yes Depression Integumentary: No Blood Disorders: No Family Medical History Reviewed Nursing Family Hx Heart Disease, Cancer, Diabetes, Hypertension Physical Exam Vital Signs Vital Signs - First Documented 08/06/18 21:05 Temp 99.8 Pulse 98 Resp 20 B/P (MAP) 152/78 (102) Capillary Refill : Height, Weight, BMI Height: 5'2.00" Weight: 160lbs. oz. 72.155494tg; 29.28 BMI Method:Stated General Appearance: No Apparent Distress, WD/WN HEENT: PERRL/EOMI, Pharynx Normal Neck: Non Tender, Supple Respiratory: Lungs Clear, Normal Breath Sounds Cardiovascular: Regular Rate, Rhythm, No Murmur Gastrointestinal: Soft, Tenderness (epigastric) Extremity: Normal Range of Motion, Non Tender Neurologic/Psychiatric: Alert, Oriented x3 Skin: Normal Color, Warm/Dry Progress/Results/Core Measures Results/Orders Lab Results Laboratory Tests Test 08/06/18 21:21 08/06/18 23:52 Range/Units White Blood Count 8.7 4.3-11.0 10^3/uL Red Blood Count 4.34 L 4.35-5.85 10^6/uL Hemoglobin 13.6 11.5-16.0 G/DL Hematocrit 39 35-52 % Mean Corpuscular Volume 89 80-99 FL Mean Corpuscular Hemoglobin 31 25-34 PG Mean Corpuscular Hemoglobin Concent 35 32-36 G/DL Red Cell Distribution Width 13.1 10.0-14.5 % Platelet Count 250 130-400 10^3/uL Mean Platelet Volume 12.3 H 7.4-10.4 FL Neutrophils (%) (Auto) 59 42-75 % Lymphocytes (%) (Auto) 30 12-44 % Monocytes (%) (Auto) 9 0-12 % Eosinophils (%) (Auto) 2 0-10 % Basophils (%) (Auto) 0 0-10 % Neutrophils # (Auto) 5.1 1.8-7.8 X 10^3 Lymphocytes # (Auto) 2.6 1.0-4.0 X 10^3 Monocytes # (Auto) 0.8 0.0-1.0 X 10^3 Eosinophils # (Auto) 0.2 0.0-0.3 10^3/uL Basophils # (Auto) 0.0 0.0-0.1 10^3/uL Prothrombin Time 12.6 12.2-14.7 SEC INR Comment 0.9 0.8-1.4 Activated Partial Thromboplast Time 29 24-35 SEC D-Dimer 0.55 H 0.00-0.49 UG/ML Sodium Level 139 135-145 MMOL/L Potassium Level 3.8 3.6-5.0 MMOL/L Chloride Level 106 98-107 MMOL/L Carbon Dioxide Level 24 21-32 MMOL/L Anion Gap 9 5-14 MMOL/L Blood Urea Nitrogen 12 7-18 MG/DL Creatinine 0.74 0.60-1.30 MG/DL Estimat Glomerular Filtration Rate > 60 BUN/Creatinine Ratio 16 Glucose Level 105 70-105 MG/DL Calcium Level 9.6 8.5-10.1 MG/DL Corrected Calcium 9.2 8.5-10.1 MG/DL Magnesium Level 2.4 1.8-2.4 MG/DL Total Bilirubin 0.5 0.1-1.0 MG/DL Aspartate Amino Transf (AST/SGOT) 24 5-34 U/L Alanine Aminotransferase (ALT/SGPT) 39 0-55 U/L Alkaline Phosphatase 83 40-136 U/L Myoglobin 26.3 24.7 10.0-92.0 NG/ML Troponin I < 0.30 < 0.30 <0.30 NG/ML Total Protein 7.9 6.4-8.2 GM/DL Albumin 4.5 3.2-4.5 GM/DL Lipase 58 8-78 U/L My Orders Orders - SHAUN RAMÍREZ MD Nitroglycerin 0.4 Mg Btl 25's (Nitrostat (08/06/18 21:05) Aspirin Chewable Tablet (Baby Aspirin Ch (08/06/18 21:05) Chest Pa/Lat (2 View) (08/06/18 21:19) Cbc With Automated Diff (08/06/18 21:19) Magnesium (08/06/18 21:19) Ekg Tracing (08/06/18 21:19) Cardiac Profile 1 (08/06/18:) Comprehensive Metabolic Panel (08/06/18 21:) Myoglobin Serum (08/06/18 21:19) Protime With Inr (08/06/18:) Partial Thromboplastin Time (08/06/18:) O2 (08/06/18:) Monitor-Rhythm Ecg Trace Only (08/06/18 21:) Lipid Panel (08/07/18 06:00) Aspirin Chewable Tablet (Baby Aspirin Ch (08/06/18 21:30) Nitroglycerin 0.4 Mg Btl 25's (Nitrostat (08/06/18 21:30) Saline Lock/Iv-Start (08/06/18 21:19) Lipase (08/06/18:) Fibrin Degradation Products (08/06/18 21:) Albuterol/Ipra Inhalation Soln (Duoneb I (08/06/18 22:00) Svn Small Volume Nebulizer (08/06/18 21:55) Lidocaine 2% Viscous 15 Ml (Xylocaine Vi (08/06/18 22:15) Antacid Suspension (Mylanta Suspension (08/06/18 22:15) Ct Angio Chest W (08/06/18 22:14) Ketorolac Injection (Toradol Injection) (08/06/18 22:19) Iohexol Injection (Omnipaque 350 Mg/Ml 1 (08/06/18 22:30) Ns (Ivpb) (Sodium Chloride 0.9%) (08/06/18 22:30) Pharmacy Communication (Pharmacy Communi (08/06/18 22:21) Ns Iv 1000 Ml (Sodium Chloride 0.9%) (08/06/18 23:30) Morphine Injection (Morphine Injection (08/06/18 23:41) Troponin I (08/06/18 23:46) Myoglobin Serum (08/06/18 23:46) Ekg Tracing (08/06/18 23:46) Saline Lock/Iv-Start (08/07/18 00:29) Ns Iv 1000 Ml (Sodium Chloride 0.9%) (08/07/18 00:29) Hydrocodone/Apap 7.5/325 Tab (Lortab 7. (08/07/18 00:29) Medications Given in ED Current Medications Medications Dose Ordered Sig/Wayne Route Start Time Stop Time Status Last Admin Dose Admin Al Hydrox/Mg Hydrox/Simethicone 30 ml ONCE ONCE PO 08/06/18 22:15 08/06/18 22:16 DC 08/06/18 22:27 30 ML Aspirin 324 mg ONCE ONCE PO 08/06/18 21:30 08/06/18 21:32 DC 08/06/18 21:09 324 MG Lidocaine HCl 15 ml ONCE ONCE PO 08/06/18 22:15 08/06/18 22:16 DC 08/06/18 22:27 15 ML Morphine Sulfate 10 mg STK-MED ONCE .ROUTE 08/06/18 23:41 08/06/18 23:45 DC 08/06/18 23:45 10 MG Nitroglycerin 0.4 mg UD PRN SL 08/06/18 21:30 08/06/18 21:28 0.4 MG Sodium Chloride 1,000 ml @ 0 mls/hr Q0M ONCE IV 08/07/18 00:29 08/07/18 00:31 DC 08/07/18 00:36 999 MLS/HR Sodium Chloride 1,000 ml @ ud STK-MED ONCE .ROUTE 08/06/18 23:30 08/06/18 23:34 DC 08/06/18 23:30 999 MLS/HR Vital Signs/I&O 08/06/18 08/06/18 08/06/18 21:05 21:05 21:05 Temp 99.8 Pulse 98 Resp 20 B/P (MAP) 152/78 (102) Pulse Ox 100 100 O2 Delivery Room Air Nasal Cannula Room Air O2 Flow Rate 2.00 2.0 FiO2 100 Progress Progress Note : Progress Note Seen and evaluated. IV, labs, EKG, chest x-ray, and ASA 324 mg by mouth and nitroglycerin sublingual ordered. Monitor patient. Pain improved somewhat after 2 nitroglycerin. GI cocktail and Toradol 30 mg IV given. Patient remains tachycardic. D-dimer slightly positive. CT angiogram of the chest ordered. 2345: Normal saline 1 L bolus. Morphine 5 mg IV ordered. We will repeat troponin, myoglobin and EKG. Pain is localized to the mid thoracic region between the shoulder blades and she is without chest pain currently. Monitor patient. 0032: Repeat normal saline 1 L bolus for tachycardia that seems to be persisting. Hydrocodone 7.5/325 one tab by mouth given. Monitor patient. 0116: Improved. Heart rate decreased. Discharged home with return precautions. Patient verbalize understanding instructions and agreement with plan. Initial ECG Impression Date: Aug 06, 2018 Initial ECG Impression Time: 21:06 Initial ECG Rate: 95 Initial ECG Rhythm: Normal Sinus Initial ECG Impression: Normal Initial ECG Comparisson: No Previous ECG Available Comment Sinus rhythm with normal axis. No evidence of ST elevation VA. No previous available for comparison. Interpreted by me. EKG : EKG Time: 23:52 Rate: 98 Rhythm: Normal Sinus Intervals: Normal ECG Comparisson: Unchanged ECG Impression: Normal Comment Sinus rhythm with normal axis. No evidence of ST elevation VA. Similar to previous done earlier today. Interpreted by me. Diagnostic Imaging Diagonstic Imaging: Xray Plain Films/CT/US/NM/MRI: chest Comments NAME: FLORENCIO POSEY [facility] REC#: [id number] PT STATUS: REG ER : 1970 PHYSICIAN: SHAUN RAMÍREZ MD ADMIT DATE: 08/06/18/ER Signed Date of Exam: 08/06/18 CHEST PA/LAT (2 VIEW) INDICATION: Chest pain. Time of exam: 9:58 PM Comparison is made with prior chest from 02/22/2018. The heart size is normal. The pulmonary vascularity is unremarkable. The lungs are clear. No infiltrate, effusion or pneumothorax is detected. Impression: No acute cardiopulmonary process is detected. Dictated by: Dictated on workstation # [id number] Dict: 08/06/[id number] Trans: 08/06/182150 Interpreted by: JOSR SINGH MD Electronically signed by: JOSR SINGH MD 08/06/181 Diagonstic Imaging: CT Plain Films/CT/US/NM/MRI: chest Comments No PE or aortic dissection. No focal consolidation. Reviewed: Reviewed [place] Study Departure Impression Primary Impression: Chest pain Qualified Codes: R07.9 - Chest pain, unspecified Additional Impression: Thoracic back pain Qualified Codes: M54.6 - Pain in thoracic spine Disposition: 01 HOME, SELF-CARE Condition: Stable Departure-Patient Inst. Decision time for Depature: 01:16 Referrals: [facility]/ (PCP) Primary Care Physician HOLLEY BANUELOS (Family) Primary Care Physician Patient Instructions: Chest Pain (DC), Upper Back Pain (DC) Add. Discharge Instructions: Take medications as directed. You may take ibuprofen 600 mg every 8 hours as needed for pain. Drink plenty of fluids. Follow-up with your DrYola in a few days for recheck. Return for worse pain, fever, vomiting, weakness, rhythm problems or other concerns as needed. Scripts Tramadol HCl (Tramadol HCl) 50 Mg Tablet 50 MG PO Q6H PRN for PAIN, #20 TAB 0 Refills Prov: SHAUN RAMÍREZ MD 08/07/18 Work/School Note: Work Release Form Date Seen in the Emergency Department: Aug 06, 2018 Return to Work: Aug 08, 2018 Restrictions: No Restrictions Copy Copies To 1: LESLYE BERNABE TIMOTHY D MD Aug 06, 2018 21:36
[2018-08-06 21:38] LABS: INR 0.9 (0.8-1.4); PROTHROMBIN TIME PATIENT 12.6 SEC (12.2-14.7)
[2018-08-06 21:47] LABS: ALANINE AMINOTRANSFERASE 39 U/L (0-55); ALBUMIN 4.5 GM/DL (3.2-4.5); ALKALINE PHOSPHATASE 83 U/L (40-136); BILIRUBIN,TOTAL 0.5 MG/DL (0.1-1.0); BUN/CREATININE RATIO 16; CALCIUM 9.6 MG/DL (8.5-10.1); CARBON DIOXIDE 24 MMOL/L (21-32); CHLORIDE 106 MMOL/L (98-107); CREATININE SERUM 0.74 MG/DL (0.60-1.30); GFR ESTIMATED > 60; GLUCOSE 105 MG/DL (70-105); LIPASE 58 U/L (8-78); MAGNESIUM 2.4 MG/DL (1.8-2.4); POTASSIUM 3.8 MMOL/L (3.6-5.0); SODIUM 139 MMOL/L (135-145); TOTAL PROTEIN 7.9 GM/DL (6.4-8.2)
--- NOTE | 2018-08-06 21:51 | Diagnostic Imaging Report ---
INDICATION: Chest pain. Time of exam: 9:58 PM Comparison is made with prior chest from 02/22/2018. The heart size is normal. The pulmonary vascularity is unremarkable. The lungs are clear. No infiltrate, effusion or pneumothorax is detected. Impression: No acute cardiopulmonary process is detected. Dictated by: Dictated on workstation # [id number]
[2018-08-06 21:54] LABS: MYOGLOBIN SERUM 26.3 NG/ML (10.0-92.0)
[2018-08-06] MEDS ORDERED: RT-ALBUTEROL/IPRATROPIUM 3 ML (DUONEB) VIAL INH ONE (22:00)
[2018-08-06] MEDS ORDERED: ANTACID SUSP 30 ML UDC (MYLANTA) PO ONE (22:15)
[2018-08-06] MEDS ORDERED: LIDOCAINE 2% VISCOUS 15 ML UDC PO ONE (22:15)
[2018-08-06] MEDS ORDERED: KETOROLAC 30 MG/ML VIAL IVP STA (22:19)
[2018-08-06] MEDS ORDERED: IOHEXOL 350 MG/ML 150 ML (OMNIPAQUE 350) VIAL IV ONE (22:30)
[2018-08-06] MEDS ORDERED: NS 250 ML (IVPB) BAG IV ONE (22:30)
[2018-08-06] MEDS ORDERED: NS IV 1000 ML 1,000 ML ONE (23:30)
[2018-08-06] MEDS ORDERED: morphine INJ 10 MG/ML 1ML (SYR OR VIAL) ONE (23:41)
[2018-08-07 00:21] LABS: MYOGLOBIN SERUM 24.7 NG/ML (10.0-92.0)
[2018-08-07] MEDS ORDERED: NS IV 1000 ML 1,000 ML IV ONE (00:29)
[2018-08-07] MEDS ORDERED: HYDROcodone/APAP 7.5 MG/325 MG (LORTAB, LORCET PLUS) TABLET PO STA (00:29)
[2018-08-07] MEDS ORDERED: TRAM50TA2 PO (00:33)
[2018-08-07 01:28] VITALS: BP 114/68
--- NOTE | 2018-08-07 07:25 | Diagnostic Imaging Report ---
PROCEDURE: CT angiography of the chest with contrast. TECHNIQUE: Multiple contiguous axial images were obtained through the chest after uneventful bolus administration of intravenous contrast. 2D reconstructed CTA MIP acquisitions were also performed. INDICATION: Chest pain. COMPARISON: None. FINDINGS: There is no CT evidence of acute pulmonary embolus to the first subsegmental division of the pulmonary arteries. Heart size is within normal limits. There is no large pericardial effusion. Thoracic aorta is normal in course and caliber. No pathologically enlarged or morphologically abnormal and not be seen within the mediastinum, fiona, nor axilla. Lung windows show no focal consolidation, pleural effusion, nor pneumothorax. Small benign calcified granulomas noted in the right. No suspicious pulmonary nodules or masses are seen on either side. Bony structures show no acute abnormalities. No lytic or blastic osseous lesions are identified. Included portions of the upper abdomen are unremarkable. IMPRESSION: 1. No acute pulmonary embolus. 2. No acute cardiopulmonary process. Dictated by: Dictated on workstation # [id number]
== END 2018-08-07 01:30 | disposition home or self-care (01) ==
LOC: EDUNIT# 21:00 → ER 21:02
DX: R07.89 Other chest pain (principal); M54.6 Pain in thoracic spine; E78.00 Pure hypercholesterolemia, unspecified; I10 Essential (primary) hypertension; F32.9 Major depressive disorder, single episode, unspecified; Z82.49 Family history of ischemic heart disease and other diseases of the circulatory system; Z87.19 Personal history of other diseases of the digestive system; Z79.51 Long term (current) use of inhaled steroids; Z98.51 Tubal ligation status
CPT/HCPCS: 36415; 71046; 71275; 80053; 83690; 83735; 83874; 84484; 85025; 85379; 85610; 85730; 93005; 93041; 94640

== ENCOUNTER 2018-12-20 07:33 | Emergency (ER) | payer MEDICAID ==
[~2018-12-20] VITALS: Ht 157.5 cm; Wt 73.9 kg
--- OUTSIDE RECORDS SUMMARY | 2018-12-20 07:37 | XMS REPORT | Clinical Summary ---
Author Author [facility] Organization [facility] Address Unknown Phone Unavailable Care Team Providers Care Department [employer] Name Role Phone Helen Rondon RN Unavailable Unavailable Fely Gray MD Unavailable Flor Falcon MD PCP Source Comments Some departments are not documenting in the electronic medical record. If you do not see the information that you expected, contact Release of Information in the Health Information Management department at [phone] for further assistance in locating additional records.[facility] Allergies No Known Allergies Medications End Date Status Medication Sig Dispensed Refills Start Date Active cyclobenzaprine Take 10 mg by 0 (FLEXERIL) 10 mg PO mouth three tablet times daily as needed. Active lisinopril/hydrochlorothi Take 1 Dose 0 azide (ZESTORETIC) by mouth 20/12.5 mg tablet 1 Dose daily. Active citalopram (CELEXA) 10 mg Take 40 mg by 0 PO tablet mouth daily. Active oxyCODONE/acetaminophen Take 1-2 Tabs 30 Tab 0 (PERCOCET; ENDOCET; by mouth 1 ROXICET) 5/325 mg PO every 4 hours tablet as needed for Pain. Max 12 tabs/day Active docusate (COLACE) 100 mg Take 1 Cap by 180 Cap 0 PO capsule mouth twice 1 daily. Active polyethylene glycol 3350 Take 17 g by 3 Bottle 0 (GLYCOLAX; MIRALAX) 17 mouth daily 1 gram/dose PO powder as needed (constipation ). Active lidocaine (LIDODERM) 5 % 1 Patch 1 box 0 TP topical patch daily. Leave 1 on for 12 hours and remove for 12 hours. Active atorvastatin (LIPITOR) 20 Take 1 Tab by 90 Tab 0 mg PO tablet mouth daily. 1 Active Problems Problem Noted Date Low back [...] Grandfather Maternal Grandmother Mother Sister Social History Date Tobacco Use Types Packs/Day Years Used Never Smoker Smokeless Tobacco: Never Used Alcohol Use Drinks/Week oz/Week Comments Yes 3 Cans of 1.8 Ocassional use beer Sex Assigned at Date Recorded Not on file Industry Job Start Date Occupation Not on file Not on file Not on file Travel End Travel History Travel Start No recent travel history available. Last Filed Vital Signs Time Taken Vital Sign Reading 07/14/2011 12:25 PM CDT Blood Pressure 108/69 07/14/2011 12:25 PM CDT Pulse 112 07/14/2011 12:25 PM CDT Temperature 36.8 C (98.2 F) - Respiratory Rate - 07/14/2011 12:25 PM CDT Oxygen Saturation 99% - Inhaled Oxygen - Concentration 07/11/2011 11:26 PM CDT Weight 66.9 kg (147 lb 7.8 oz) - Height - - Body Mass Index - Plan of Treatment Health Maintenance Due Date Last Done Comments PHYSICAL (COMPREHENSIVE) 1977 EXAM HIV SCREENING 1985 DTAP/TDAP VACCINES (1 - 1988 Tdap) CERVICAL CANCER SCREENING 2000 BREAST CANCER SCREENING 2010 INFLUENZA VACCINE 06/11/2018 Results Not on filefrom Last 3 Months Advance Directives For more information, please contact: [facility] [address] [place] [address] Date Inactivated Comments Code Status Date Activated 07/14/2011 8:14 PM Full Code 07/11/2011 11:26 PM Provider has discussed Code Status Yes w/Patient or Family?
--- NOTE | 2018-12-20 07:51 | ED Cough/URI ---
General Stated Complaint: COUGH Source: patient, family Exam Limitations: no limitations History of Present Illness Date Seen by Provider: Dec 20, 2018 Time Seen by Provider: 07:47 Initial Comments This 48-year-old white female presents with cough congestion sore throat and general malaise as been present for more than the past week. Patient was seen at [facility] and judged to have a viral upper respiratory infection. Patient has continued to cough and now her sore throat is persistent. Patient denies shortness of breath, headache, stiff neck, photophobia, associated diarrhea, dysuria, or frequency. The patient has had nausea without vomiting. Past medical history includes hypertension for which she takes lisinopril. No one at home is currently significantly ill. Allergies and Home Medications Allergies Coded Allergies: No Known Drug Allergies (Unverified , 03/26/13) Patient Home Medication List Home Medication List Reviewed: Yes Review of Systems Review of Systems Constitutional: chills; No fever EENTM: see HPI, ear pain (on the right), throat pain; No throat swelling Respiratory: see HPI, cough Cardiovascular: No chest pain, No palpitations Gastrointestinal: No abdominal pain, No diarrhea; nausea; No vomiting Genitourinary: No decreased output, No dysuria, No frequency : No Musculoskeletal: No back pain Skin: No rash Psychiatric/Neurological: No Symptoms Reported Hematologic/Lymphatic: No Symptoms Reported Immunological/Allergic: no symptoms reported Past Zjankbn-Hbhaqx-Nrlzph Hx Past Med/Social Hx: Reviewed Nursing Past Med/Soc Hx Patient Social History Former Smoker, Quit: Aug 06, 1998 2nd Hand Smoke Exposure: No Recent Foreign Travel: No Contact w/Someone Who Travel: No Recent Hopitalizations: No Seasonal Allergies Seasonal Allergies: No Past Medical History Surgeries: Yes (HYSTEROSCOPY) Orthopedic, Tubal Ligation Respiratory: No Cardiac: Yes High Cholesterol, Hypertension Neurological: No Reproductive Disorders: No Genitourinary: No Gastrointestinal: Yes Hemorrhoids Musculoskeletal: Yes (BACK SX) Chronic Back Pain Endocrine: No HEENT: No Cancer: No Psychosocial: Yes Depression Integumentary: No Blood Disorders: No Family Medical History Heart Disease, Cancer, Diabetes, Hypertension Physical Exam Vital Signs - First Documented 12/20/18 12/20/18 07:39 08:08 Temp 98.1 Pulse 97 Resp 18 B/P (MAP) 132/87 (102) Pulse Ox 98 O2 Delivery Room Air O2 Flow Rate 0 Capillary Refill : Height: 5'3.00" Weight: 160lbs. oz. 72.826811yh; 29.28 BMI Method:Stated General Appearance: WD/WN, no apparent distress Eyes: Bilateral Eye Normal Inspection HEENT: normal ENT inspection, TMs normal, pharynx normal Neck: full range of motion, supple, normal inspection Respiratory: lungs clear, normal breath sounds, no respiratory distress Cardiovascular: regular rate, rhythm Gastrointestinal: normal bowel sounds Extremities: normal range of motion, non-tender Neurologic/Psychiatric: no motor/sensory deficits, alert, normal mood/affect, oriented x 3 Skin: normal color, warm/dry Progress/Results/Core Measures Suspected Sepsis SIRS Temperature: Pulse: Respiratory Rate: Laboratory Tests 12/20/18 07:52: White Blood Count 11.7H Blood Pressure / Mean: Laboratory Tests 12/20/18 07:52: Platelet Count 248 Results/Orders Lab Results Laboratory Tests Test 12/20/18 07:52 Range/Units White Blood Count 11.7 H 4.3-11.0 10^3/uL Red Blood Count 4.12 L 4.35-5.85 10^6/uL Hemoglobin 12.4 11.5-16.0 G/DL Hematocrit 37 35-52 % Mean Corpuscular Volume 90 80-99 FL Mean Corpuscular Hemoglobin 30 25-34 PG Mean Corpuscular Hemoglobin Concent 33 32-36 G/DL Red Cell Distribution Width 13.3 10.0-14.5 % Platelet Count 248 130-400 10^3/uL Mean Platelet Volume 11.7 H 7.4-10.4 FL Neutrophils (%) (Auto) 80 H 42-75 % Lymphocytes (%) (Auto) 12 12-44 % Monocytes (%) (Auto) 6 0-12 % Eosinophils (%) (Auto) 1 0-10 % Basophils (%) (Auto) 0 0-10 % Neutrophils # (Auto) 9.4 H 1.8-7.8 X 10^3 Lymphocytes # (Auto) 1.4 1.0-4.0 X 10^3 Monocytes # (Auto) 0.7 0.0-1.0 X 10^3 Eosinophils # (Auto) 0.2 0.0-0.3 10^3/uL Basophils # (Auto) 0.0 0.0-0.1 10^3/uL My Orders Orders - KENTRELL BERRY MD Chest Pa/Lat (2 View) (12/20/18 07:46) Cbc With Automated Diff (12/20/18 07:46) Albuterol/Ipra Inhalation Soln (Duoneb I (12/20/18 08:00) Svn Small Volume Nebulizer (12/20/18 07:46) Medications Given in ED Current Medications Medications Dose Ordered Sig/Wayne Route Start Time Stop Time Status Last Admin Dose Admin Albuterol/ Ipratropium 3 ml ONCE ONCE INH 12/20/18 08:00 12/20/18 08:01 DC 12/20/18 08:07 3 ML Vital Signs/I&O 12/20/18 12/20/18 07:39 08:08 Temp 98.1 Pulse 97 Resp 18 B/P (MAP) 132/87 (102) Pulse Ox 98 95 O2 Delivery Room Air O2 Flow Rate 0 Capillary Refill : Progress Note : Time: 08:47 Progress Note The patient's CBC was unremarkable. Chest x-ray was done. Patient received a DuoNeb treatment. Discussed the findings and my thoughts for best treatment with the patient and her . We settled on prednisone 50 mg A for 5 days, Tussionex teaspoon every 12 cough, and a Z-Cesar as the patient wanted an antibiotic. Departure Impression Primary Impression: Upper respiratory infection Qualified Codes: J06.9 - Acute upper respiratory infection, unspecified Additional Impression: Cough Disposition: 01 HOME, SELF-CARE Condition: Unchanged Departure-Patient Inst. Decision time for Depature: 08:49 Referrals: [facility] (PCP) Primary Care Physician HOLLEY BANUELOS (Family) Primary Care Physician Patient Instructions: Cough, Adult (DC) Add. Discharge Instructions: Prednisone, Tussionex, and Z-Cesar as prescribed. Close follow-up with [facility] on Saturday. No work till Saturday. Return if any problems or questions. KENTRELL BERRY MD Dec 20, 2018 07:51
[2018-12-20] MEDS ORDERED: RT-ALBUTEROL/IPRATROPIUM 3 ML (DUONEB) VIAL INH ONE (08:00)
[2018-12-20 08:05] LABS: BASOPHILS % (AUTO) 0 % (0-10); EOSINOPHILS # (AUTO) 0.2 10^3/uL (0.0-0.3); EOSINOPHILS % (AUTO) 1 % (0-10); HEMATOCRIT 37 % (35-52); HEMOGLOBIN 12.4 G/DL (11.5-16.0); LYMPHOCYTES # (AUTO) 1.4 X 10^3 (1.0-4.0); LYMPHOCYTES % (AUTO) 12 % (12-44); MEAN CORPUSCULAR HEMOGLOBIN 30 PG (25-34); MEAN CORPUSCULAR HGB CONC 33 G/DL (32-36); MEAN CORPUSCULAR VOLUME 90 FL (80-99); MEAN PLATELET VOLUME 11.7 FL (7.4-10.4); MONOCYTES # (AUTO) 0.7 X 10^3 (0.0-1.0); MONOCYTES % (AUTO) 6 % (0-12); NEUTROPHILS # (AUTO) 9.4 X 10^3 (1.8-7.8); NEUTROPHILS % (AUTO) 80 % (42-75); PLATELET COUNT 248 10^3/uL (130-400); RED CELL DISTRIBUTION WIDTH 13.3 % (10.0-14.5); WHITE BLOOD COUNT 11.7 10^3/uL (4.3-11.0)
[2018-12-20 08:54] VITALS: BP 132/87
--- NOTE | 2018-12-20 09:11 | Diagnostic Imaging Report ---
INDICATION: Cough and congestion. Compared 08/06/2018 FINDINGS: The lungs are clear. The heart vessels normal. There is no effusion or pneumothorax. IMPRESSION: No acute appearing abnormality Dictated by: Dictated on workstation # [id number]
== END 2018-12-20 08:27 | disposition home or self-care (01) ==
LOC: EDUNIT# 07:33 → ER 07:34
DX: J06.9 Acute upper respiratory infection, unspecified (principal); E78.00 Pure hypercholesterolemia, unspecified; F32.9 Major depressive disorder, single episode, unspecified; I10 Essential (primary) hypertension; Z82.49 Family history of ischemic heart disease and other diseases of the circulatory system; Z87.19 Personal history of other diseases of the digestive system; Z87.891 Personal history of nicotine dependence; Z98.51 Tubal ligation status
CPT/HCPCS: 36415; 71046; 85025; 94640

== ENCOUNTER → 2019-02-04 | Outpatient (CLI) | payer MEDICAID ==
--- NOTE | 2019-02-04 18:01 | Diagnostic Imaging Report ---
INDICATION: Routine screening. COMPARISON: Comparison is made with prior mammograms from 09/21/2015 and 12/31/2012. TECHNIQUE: 2D and 3D bilateral screening mammography was performed with computer-aided detection (CAD) system. FINDINGS: Scattered fibroglandular densities are identified bilaterally. The parenchymal pattern is stable. No mass or malignant appearing microcalcifications are seen. The axillae are unremarkable. IMPRESSION: No mammographic features suspicious for malignancy are identified. ACR BI-RADS Category 1: Negative. Result letter will be mailed to the patient. Note: At least 10% of breast cancer is not imaged by mammography. Dictated by: Dictated on workstation # [id number]
== END ==
LOC: RAD 11:20
PROVIDERS: ATTEND Obstetrics & Gynecology
DX: Z12.31 Encounter for screening mammogram for malignant neoplasm of breast (principal)
CPT/HCPCS: 77067

== ENCOUNTER → 2019-02-18 | Outpatient (CLI) | payer MEDICAID ==
--- NOTE | 2019-02-18 10:57 | Diagnostic Imaging Report ---
EXAMINATION: Pelvis ultrasound INDICATION: Menorrhagia The previous pelvic ultrasound exam performed on 10/24/2016 noted a 4.3 CM hypoechoic lesion associated with the right ovary. This is felt to represent a hemorrhagic cyst. On this exam there is again evidence of a 2.4 x 2.7 x 2.7 CM hypoechoic lesion with a few internal echoes arising from the right ovary. I suspect that this is a cyst which has been slightly complicated by infection and/or hemorrhage. The left ovary is generally unremarkable. The left ovary is not well visualized. There is no pelvic mass or free fluid collection evident. There is good blood flow to the right ovary. The uterus is not enlarged measuring 8.4 x 5.0 x 4.5 CM. The endometrial lining is not thickened measuring 3 MM. There is no focal mass involving the uterus to suggest a fibroid. There does appear to be a roughly 5 MM nabothian cyst. IMPRESSION: 1. There is a slightly complicated 2.7 x 2.7 CM cyst associated with the right ovary. Whether this finding and the finding of the previous exam are one and the same are not certain. 2. There is no acute pelvic abnormality identified otherwise. 3. The left ovary was not visualized. Dictated by: Dictated on workstation # [id number]
== END ==
LOC: RAD 09:27
PROVIDERS: ATTEND Obstetrics & Gynecology
DX: N84.1 Polyp of cervix uteri (principal); N94.6 Dysmenorrhea, unspecified; N92.0 Excessive and frequent menstruation with regular cycle
CPT/HCPCS: 76830; 76856

== ENCOUNTER → 2021-03-02 | Outpatient (CLI) | payer MEDICAID ==
[~2021-03-02] MED LIST changes: +ACYC-112 PO; -ACYC800T PO; +LISI1TAB46; -LISI1TAB8; -TRAM50TA2 PO; +TRM50T PO
--- NOTE | 2021-03-02 13:00 | Diagnostic Imaging Report ---
INDICATION: Routine screening Comparison is made prior mammogram 02/04/2019, 09/21/2015. 2-D and 3-D bilateral screening mammography was performed with CAD. Scattered fibroglandular densities are identified bilaterally. The parenchymal pattern is stable. No mass or malignant appearing microcalcifications are seen. Axillae are unremarkable. IMPRESSION: BI-RADS Category 1 No mammographic features suspicious for malignancy are identified. ACR BI-RADS Category 1: Negative. Result letter will be mailed to the patient. Note: At least 10% of breast cancer is not imaged by mammography. Dictated by: Dictated on workstation # [id number]
--- NOTE | 2021-03-02 14:50 | Diagnostic Imaging Report ---
PROCEDURE: Pelvic comp/transvaginal sonogram. TECHNIQUE: Complete transabdominal and transvaginal pelvic ultrasound was performed. In addition, limited pelvic Doppler was performed. INDICATION: Pelvic pain. FINDINGS: The uterus is retroverted measuring 7.7 x 4.7 x 5.5 cm. Endometrium is 7 mm in thickness. No myometrial mass is detected. Right ovary measures 1.7 x 1.4 x 2.6 cm and left ovary measures 2.5 x 2.8 x 1.4 cm. Left ovary does contain a 15 mm cyst. There is blood flow to the ovaries. There is no adnexal mass or free fluid detected. IMPRESSION: Small left ovarian cyst. The study is otherwise unremarkable. Dictated by: Dictated on workstation # [id number]
== END ==
LOC: RAD 10:49
PROVIDERS: ATTEND Obstetrics & Gynecology
DX: Z12.31 Encounter for screening mammogram for malignant neoplasm of breast (principal); N83.202 Unspecified ovarian cyst, left side
CPT/HCPCS: 76830; 76856; 77063; 77067

== ENCOUNTER 2022-02-26 07:25 | Emergency (ER) | payer MEDICAID ==
[~2022-02-26] VITALS: Ht 154 cm; Wt 72.0 kg
[2022-02-26] MEDS ORDERED: CYCLOBENZAPRINE 10 MG (FLEXERIL) TAB PO STA (08:02)
--- NOTE | 2022-02-26 08:06 | ED Back Pain ---
General Chief Complaint: Back Problems Stated Complaint: BACK PAIN Nursing Triage Note: PT AMB SLOWLY TO RM 6 PT CO OF SEVERE BACK PAIN STARTED YESTERDAY WOKE UP W BACK PAIN DOWN TO R LEG /. HAS HX BACK PAIN. PT DENIES RECENT INJURY TO BACK Source of Information: Patient Exam Limitations: No Limitations History of Present Illness Date Seen by Provider: Feb 26, 2022 Time Seen by Provider: 07:27 Initial Comments 51-year-old female with past medical history of hypertension and chronic low back pain that previously had discectomy as well as previous pain management visits with injections coming in due to low back pain. Started acutely yesterday. Has been constant, aching in her lower back, worse on the right side and going down her leg. Denies any weakness or numbness, bowel or bladder dysfunction. Has not had any trauma. Denies any fever or IV drug use. Is not diabetic. Took Tylenol yesterday which did help. Today she just took her regular medications including her gabapentin. She is otherwise denying any other acute complaints including no chest pain, shortness of breath, abdominal pain, dysuria, hematuria, or any other concerns. Denies any prior history of kidney stones. She is postmenopausal. Allergies and Home Medications Allergies Coded Allergies: No Known Drug Allergies (Unverified , 03/26/13) Patient Home Medication List Home Medication List Reviewed: Yes Acetaminophen (Tylenol Extra Strength) 500 Mg Tablet, 500 MG PO Q6H Prescribed by: MASSIEL HILLMAN on 02/26/22900 Cyclobenzaprine HCl (Cyclobenzaprine HCl) 10 Mg Tablet, 10 MG PO BID Prescribed by: MASSIEL HILLMAN on 02/26/22900 Ibuprofen (Ibuprofen) 600 Mg Tablet, 600 MG PO Q6H PRN for PAIN-MILD Prescribed by: MASSIEL HILLMAN on 02/26/22 09 Lidocaine (Lidocaine 5% Patch) 1 Each Adh..patch, 1 EACH TP Q12H PRN for Neuropathic pain Prescribed by: MASSIEL HILLMAN on 02/26/22 09 Lisinopril/Hydrochlorothiazide (Lisinopril-Hctz 20-12.5 mg Tab) 1 Each Tablet, (Reported) Entered as Reported by: JOE NIELSEN on 10/19/16 1338 Review of Systems Constitutional: No chills, No fever EENTM: No blurred vision Respiratory: no symptoms reported Cardiovascular: no symptoms reported Gastrointestinal: no symptoms reported Genitourinary: no symptoms reported : No Musculoskeletal: back pain Skin: no symptoms reported Psychiatric/Neurological: No Symptoms Reported All Other Systems Reviewed Negative Unless Noted: Yes Past Ncwpikx-Dsohsn-Wfiars Hx Patient Social History Tobacco Use?: No Substance use?: No Alcohol Use?: No Immunizations Up To Date First/Initial COVID19 Vaccinat: 2020 COVID19 Vaccine Care Transitions Manager: MARILEE Seasonal Allergies Seasonal Allergies: No Past Medical History Surgery/Hospitalization HX: BACK SURG 2009 Surgeries: Yes (HYSTEROSCOPY) Orthopedic, Tubal Ligation Respiratory: No Cardiac: Yes High Cholesterol, Hypertension Neurological: No Reproductive Disorders: No Genitourinary: No Gastrointestinal: Yes Hemorrhoids Musculoskeletal: Yes (BACK SX) Chronic Back Pain Endocrine: No HEENT: No Cancer: No Psychosocial: Yes Depression Integumentary: No Blood Disorders: No Family Medical History Heart Disease, Cancer, Diabetes, Hypertension Physical Exam Vital Signs Vital Signs - First Documented 02/26/22 07:32 Temp 36.0 Pulse 83 Resp 18 B/P (MAP) 197/94 (128) Pulse Ox 100 Capillary Refill : Less Than 3 Seconds Height, Weight, BMI Height: 5'2.00" Weight: 163lbs. oz. 73.557949ol; 30.00 BMI Method:Stated General Appearance: No Apparent Distress, WD/WN, Mild Distress HEENT: PERRL/EOMI, Normal ENT Inspection, Pharynx Normal Neck: Full Range of Motion, Normal Inspection, Non Tender, Supple Cardiovascular: Regular Rate, Rhythm, No Edema, Normal Peripheral Pulses Respiratory: Chest Non Tender, Lungs Clear, Normal Breath Sounds, No Accessory Muscle Use, No Respiratory Distress Gastrointestinal: Normal Bowel Sounds, Non Tender, Soft; No Distended, No Guarding Back: Normal Inspection, No CVA Tenderness, No Vertebral Tenderness, Other (Paravertebral tenderness bilaterally in the lower back, positive straight leg test, negative for for straight leg test, normal 5-5 dorsiflexion and plantarflexion, normal patellar reflexes) Extremity: Normal Capillary Refill, Normal Inspection, Normal Range of Motion, Non Tender, No Calf Tenderness, No Pedal Edema Neurologic/Psychiatric: Alert, No Motor/Sensory Deficits, Normal Mood/Affect Skin: Normal Color, Warm/Dry Lymphatic: No Adenopathy Progress/Results/Core Measures Results/Orders Lab Results Laboratory Tests Test 02/26/22 08:08 Range/Units Urine Color YELLOW Urine Clarity CLEAR Urine pH 6.0 5-9 Urine Specific [place] 1.020 1.016-1.022 Urine Protein NEGATIVE NEGATIVE Urine Glucose (UA) NEGATIVE NEGATIVE Urine Ketones NEGATIVE NEGATIVE Urine Nitrite NEGATIVE NEGATIVE Urine Bilirubin NEGATIVE NEGATIVE Urine Urobilinogen 0.2 < = 1.0 MG/DL Urine Leukocyte Esterase 1+ H NEGATIVE Urine RBC (Auto) NEGATIVE NEGATIVE Urine RBC NONE /HPF Urine WBC 10-25 H /HPF Urine Squamous Epithelial Cells 5-10 /HPF Urine Crystals NONE /LPF Urine Bacteria FEW H /HPF Urine Casts NONE /LPF Urine Mucus NEGATIVE /LPF Urine Culture Indicated YES My Orders Orders - MASSIEL HILLMAN MD Ua Culture If Indicated (02/26/22 08:02) Ketorolac Injection (Toradol Injection) (02/26/22 08:15) Acetaminophen Tablet (Tylenol Tablet) (02/26/22 08:15) Cyclobenzaprine Tablet (Flexeril Tablet) (02/26/22 08:02) Ketorolac Injection (Toradol Injection) (02/26/22 08:15) Ketorolac Injection (Toradol Injection) (02/26/22 08:09) Urine Culture (02/26/22 08:08) Medications Given in ED Current Medications Medications Dose Ordered Sig/Wayne Route Start Time Stop Time Status Last Admin Dose Admin Acetaminophen 1,000 mg ONCE ONCE PO 02/26/22 08:15 02/26/22 08:16 DC 02/26/22 08:12 1,000 MG Ketorolac Tromethamine 15 mg ONCE ONCE IM 02/26/22 08:15 02/26/22 08:17 DC 02/26/22 08:14 15 MG Vital Signs/I&O 02/26/22 07:32 Temp 36.0 Pulse 83 Resp 18 B/P (MAP) 197/94 (128) Pulse Ox 100 Blood Pressure Mean: 128 Progress Progress Note : Progress Note 51-year-old female with above history coming in due to low back pain. ABCs were intact and vitals were stable on presentation. Physical exam with some paraspinal muscular tenderness and a positive straight leg test. No red flags for low back pain based on history and exam. She was given symptomatic treatment including IM Toradol, Flexeril, Tylenol with significant improvement in her symptoms. Urinalysis sent as a screening to rule out less likely causes such as pyelonephritis or even less likely ureterolithiasis. I believe the patient is stable for discharge with outpatient follow-up. She was sent home with strict return precautions. Urine equivocal with possible UTI, will treat out of abundance of caution. Departure Impression Primary Impression: Low back pain Qualified Codes: M54.41 - Lumbago with sciatica, right side Additional Impression: UTI (urinary tract infection) Qualified Codes: N39.0 - Urinary tract infection, site not specified Disposition: HOME, SELF-CARE Condition: Stable Departure-Patient Inst. Decision time for Depature: 09:00 Referrals: ROSALINO PEDERSEN DO (PCP/Family) Primary Care Physician Patient Instructions: Low Back Pain in Adults Add. Discharge Instructions: Take the prescription ibuprofen every 6 hours, the prescription Tylenol every 6 hours, try the lidocaine patch which can be on for 12 hours at a time before putting a new one on, you can try heat or cold, but just be careful if you have the lidocaine on that you do not burn yourself. Try to gently stretch and move around the house. If you have any significant numbness that is new, significant weakness, or inability to hold in your bowel or bladder dysfunction, then I would want you to be reevaluated by a doctor as soon as possible. Please call your regular doctor to have a follow-up appointment in the next week or so if things are not improving. You may need a referral to a back doctor, but I would typically wait at least a couple weeks to see if you get better since most peop le improve in 2 weeks roughly Scripts Cefdinir (Cefdinir) 300 Mg Capsule 300 MG PO BID for 3 Days, #6 CAP Prov: MASSIEL HILLMAN MD 02/26/22 Lidocaine (Lidocaine 5% Patch) 1 Each Adh..patch 1 EACH TP Q12H PRN for Neuropathic pain MDD 2 for 10 Days, #20 PATCH 2 patches max for 12 hours, then 12 hours patch-free period. Prov: MASSIEL HILLMAN MD 02/26/22 Cyclobenzaprine HCl (Cyclobenzaprine HCl) 10 Mg Tablet 10 MG PO BID for Spasms for 7 Days, #14 TAB Prov: MASSIEL HILLMAN MD 02/26/22 Acetaminophen (Tylenol Extra Strength) 500 Mg Tablet 500 MG PO Q6H for 7 Days, #56 TAB Prov: MASSIEL HILLMAN MD 02/26/22 Ibuprofen (Ibuprofen) 600 Mg Tablet 600 MG PO Q6H PRN for PAIN-MILD for 7 Days, #28 TAB Prov: MASSIEL HILLMAN MD 02/26/22 Work/School Note: Work Release Form Date Seen in the Emergency Department: Feb 26, 2022 Return to Work: Feb 27, 2022 Restrictions: No Restrictions MASSIEL HILLMAN MD Feb 26, 2022 08:06
[2022-02-26] MEDS ORDERED: KETOROLAC 30 MG/ML VIAL ONE (08:09)
[2022-02-26] MEDS ORDERED: KETOROLAC 30 MG/ML VIAL IM ONE (08:15)
[2022-02-26] MEDS ORDERED: KETOROLAC 15 MG/ML VIAL IM ONE (08:15)
[2022-02-26] MEDS ORDERED: ACETAMINOPHEN 500 MG TAB (TYLENOL) PO ONE (08:15)
[2022-02-26 08:21] LABS: BILIRUBIN,URINE NEGATIVE (NEGATIVE); CLARITY,URINE CLEAR; COLOR,URINE YELLOW; GLUCOSE, URINE (UA) NEGATIVE (NEGATIVE); KETONES,URINE NEGATIVE (NEGATIVE); LEUKOCYTE ESTERASE ,URINE 1+ (NEGATIVE); NITRITE,URINE NEGATIVE (NEGATIVE); PROTEIN,URINE NEGATIVE (NEGATIVE)
[2022-02-26 08:54] LABS: BACTERIA,URINE FEW /HPF
[2022-02-26] MEDS ORDERED: ACET-2267 PO (09:01)
[2022-02-26] MEDS ORDERED: IBUP-1773 PO (09:01)
[2022-02-26] MEDS ORDERED: LIDO700A45 TP (09:01)
[2022-02-26] MEDS ORDERED: CYCL10TA25 PO (09:01)
[2022-02-26] MEDS ORDERED: CEFD300C3 PO (09:03)
[2022-02-26 09:10] VITALS: BP 137/75
== END 2022-02-26 09:11 | disposition home or self-care (01) ==
LOC: EDUNIT# 07:25 → ER 07:27
DX: N39.0 Urinary tract infection, site not specified (principal)
CPT/HCPCS: 81000; 87088; 99284

== ENCOUNTER 2022-02-28 08:26 | Emergency (ER) | payer MEDICAID ==
[~2022-02-28] VITALS: Ht 154.9 cm; Wt 72.1 kg
[~2022-02-28 08:26] MED LIST changes: +ACET-2267 PO; +CYCL10TA25 PO; +IBUP-1773 PO; +LIDO700A45 TP
--- NOTE | 2022-02-28 09:15 | ED Back Pain ---
General Chief Complaint: Back Problems Stated Complaint: BACK PAIN Nursing Triage Note: PT C/O BACK PAIN THAT STARTED LAST SATURDAY. PT STATES SHE WAS SEEN IN OUR ER SATURDAY THIS WEEK BUT RETURNED TODAY FOR WORSENING PAIN. History of Present Illness Date Seen by Provider: Feb 28, 2022 Time Seen by Provider: 08:43 Initial Comments Patient to the ER by private conveyance from home with chief complaint she has had last couple weeks worsening low back pain bilateral. She was seen in the ER put on muscle relaxants and she states ibuprofen 500 mg every 6 hours. We have been using his medications. He does not follow with a chiropractor. She supposed to have an appointment today with her primary care doctor instead of she decided to come to the ER. She is not having any nausea fevers chills. No falls or other trauma. 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 No loss of control of bowel or bladder, falls, weakness numbness saddle anesthesia etc. She did have a history of 2007 of the low back surgery at . She has not had any urinary symptoms at any point although she did do a course of antibiotics for apparent UTI on urinalysis. She denies history of drug use. She is using the medication as otherwise prescribed Allergies and Home Medications Allergies Coded Allergies: No Known Drug Allergies (Unverified , 03/26/13) Patient Home Medication List Home Medication List Reviewed: Yes Acetaminophen (Tylenol Extra Strength) 500 Mg Tablet, 500 MG PO Q6H Prescribed by: MASSIEL HILLMAN on 02/26/22900 Cefdinir (Cefdinir) 300 Mg Capsule, 300 MG PO BID Prescribed by: MASSIEL HILLMAN on 02/26/22902 Cyclobenzaprine HCl (Cyclobenzaprine HCl) 10 Mg Tablet, 10 MG PO BID Prescribed by: MASSIEL HILLMAN on 02/26/22900 Ibuprofen (Ibuprofen) 600 Mg Tablet, 600 MG PO Q6H PRN for PAIN-MILD Prescribed by: MASSIEL HILLMAN on 02/26/22900 Lidocaine (Lidocaine 5% Patch) 1 Each Adh..patch, 1 EACH TP Q12H PRN for Neuropathic pain Prescribed by: MASSIEL HILLMAN on 02/26/22900 Lisinopril/Hydrochlorothiazide (Lisinopril-Hctz 20-12.5 mg Tab) 1 Each Tablet, ( Reported) Entered as Reported by: JOE NIELSEN on 10/19/16 4938 Review of Systems Constitutional: No chills, No diaphoresis EENTM: No ear discharge, No hearing loss, No ear pain Respiratory: No cough, No hemoptysis, No phlegm Cardiovascular: No chest pain, No palpitations Gastrointestinal: No abdominal pain, No nausea, No vomiting Genitourinary: No discharge, No dysuria Musculoskeletal: see HPI, back pain; No joint pain; muscle pain, muscle stiffness Skin: No change in color, No pruritus Psychiatric/Neurological: Denies Anxiety, Denies Depressed All Other Systems Reviewed Negative Unless Noted: Yes Past Xvooren-Dmlzrx-Fabaga Hx Patient Social History Tobacco Use?: No Substance use?: No Alcohol Use?: No Pt feels they are or have been: No Immunizations Up To Date First/Initial COVID19 Vaccinat: 2020 Seasonal Allergies Seasonal Allergies: No Past Medical History Surgery/Hospitalization HX: BACK SURG 2008 Surgeries: Yes (HYSTEROSCOPY) Orthopedic, Tubal Ligation Respiratory: No Cardiac: Yes High Cholesterol, Hypertension Neurological: No Reproductive Disorders: No Genitourinary: No Gastrointestinal: Yes Hemorrhoids Musculoskeletal: Yes (BACK SX) Chronic Back Pain Endocrine: No HEENT: No Cancer: No Psychosocial: Yes Depression Integumentary: No Blood Disorders: No Family Medical History Heart Disease, Cancer, Diabetes, Hypertension Physical Exam Vital Signs Vital Signs - First Documented 02/28/22 08:45 Temp 35.9 Pulse 106 Resp 20 B/P (MAP) 154/90 (111) O2 Delivery Room Air Capillary Refill : Height, Weight, BMI Height: 5'2.00" Weight: 163lbs. oz. 73.719669vs; 30.00 BMI Method:Stated General Appearance: WD/WN, Mild Distress HEENT: PERRL/EOMI, Pharynx Normal, Moist Mucous Membranes Neck: Full Range of Motion, Normal Inspection Cardiovascular: Regular Rate, Rhythm, Normal Peripheral Pulses Respiratory: No Accessory Muscle Use, No Respiratory Distress Peripheral Pulses: 2+ Radial Pulses (R), 2+ Radial Pulses (L) Gastrointestinal: Normal Bowel Sounds, Non Tender, Soft Back: Normal Inspection, Muscle Spasm (Bilateral lower lumbar paraspinous muscle tenderness to palpation, symmetric), Vertebral Tenderness (Midline mild tenderness in the lumbar spine) Extremity: Normal Capillary Refill, Normal Inspection, Normal Range of Motion, Non Tender, No Pedal Edema Neurologic/Psychiatric: Oriented x3, No Motor/Sensory Deficits Skin: Normal Color, Warm/Dry Progress/Results/Core Measures Results/Orders Lab Results Laboratory Tests Test 02/28/22 09:20 Range/Units Urine Color YELLOW Urine Clarity CLEAR Urine pH 6.0 5-9 Urine Specific [place] 1.025 H 1.016-1.022 Urine Protein NEGATIVE NEGATIVE Urine Glucose (UA) NEGATIVE NEGATIVE Urine Ketones NEGATIVE NEGATIVE Urine Nitrite NEGATIVE NEGATIVE Urine Bilirubin NEGATIVE NEGATIVE Urine Urobilinogen 0.2 < = 1.0 MG/DL Urine Leukocyte Esterase 1+ H NEGATIVE Urine RBC (Auto) NEGATIVE NEGATIVE Urine RBC NONE /HPF Urine WBC 10-25 H /HPF Urine Squamous Epithelial Cells 5-10 /HPF Urine Crystals NONE /LPF Urine Bacteria MODERATE H /HPF Urine Casts NONE /LPF Urine Mucus NEGATIVE /LPF Urine Culture Indicated YES My Orders Orders - ROSANNE SOSA Ua Culture If Indicated (02/28/22 09:12) Ketorolac Injection (Toradol Injection) (02/28/22 09:45) Lumbar Spine - 2-3 Views (02/28/22 09:41) Urine Culture (02/28/22 09:20) Methylprednisolone Acetate Inj (Depo-Med (02/28/22 11:45) Orphenadrine Inj (Ed Only) (Norflex Inje (02/28/22 11:45) Medications Given in ED Current Medications Medications Dose Ordered Sig/Wayne Route Start Time Stop Time Status Last Admin Dose Admin Ketorolac Tromethamine 60 mg ONCE ONCE IM 02/28/22 09:45 02/28/22 09:46 DC 02/28/22 09:54 60 MG Vital Signs/I&O 02/28/22 08:45 Temp 35.9 Pulse 106 Resp 20 B/P (MAP) 154/90 (111) O2 Delivery Room Air Blood Pressure Mean: 111 Progress Progress Note #1: Time: 09:39 Progress Note She only endorses using ibuprofen 500 mg. She was given a prescription for acetaminophen 500 mg. I do not suspect she is currently on NSAIDs then. We will give her a shot of Toradol for her pain recheck a urinalysis. Her prior urine culture suggests contamination with multiple gram-positive normal krystian. This is probably not related to urinary tract. A Depo-Medrol shot might be helpful for her low back pain. We will refer her on to physical therapy and suggest she follow-up with primary care for continued management outpatient of her acute exacerbation of her chronic back pain. Progress Note #2: Time: 11:41 Progress Note Depo-Medrol 40 mg. X-ray was reviewed with the patient. Urine shows contamination. Will encourage her to discontinue the antibiotics. Return precautions were discussed. We will put her on Robaxin since she does not feel the cyclobenzaprine has been helping with her muscle spasms that are on both sides of her back. Encouraged topical creams and lidocaine patches. Back brace, referral to physical therapy and follow-up in 2 to 4 weeks with her doctor. Patient is okay with this plan. We will put her on a 20 pound weight restriction for 2 weeks. Diagnostic Imaging Diagonstic Imaging: Xray Plain Films/CT/US/NM/MRI: other (lumbar spine) Comments [facility], [place] NAME: FLORENCIO POSEY [facility] REC#: [id number] PT STATUS: REG ER : 1970 PHYSICIAN: ROSANNE SOSA MD ADMIT DATE: 02/28/22/ER Draft Date of Exam:02/28/22 LUMBAR SPINE - 2-3 VIEWS CLINICAL INDICATION: Patient with lower back pain since last Saturday. No known trauma. EXAM: X-ray of the lumbar spine, three views. COMPARISON: X-ray of the lumbar spine dated 02/03/2018. FINDINGS: There is no interval acute lumbar spine fracture. Stable roughly 5 mm of grade 1 anterolisthesis of L4 on L5. There is stable sgumpptf-de-[id number] loss of disc space height at the L4-L5 level. There is stable severe loss of disc space height at the L5-S1 level. There are hypertrophic spurs involving the L4-L5 and L5-S1 levels. There is lower lumbar spine facet arthropathy. There is levoscoliosis of the lumbar spine seen. There is sclerosis of the bilateral sacroiliac joints. IMPRESSION: 1: There is no acute lumbar spine fracture. 2: There is no significant change to the lower lumbar spine degenerative disease including grade 1 anterolisthesis of L4 on L5. Dictated on workstation # [id number] Dict: 02/28/22 1115 Trans: 02/28/22 1120 [id number] Interpreted by: SINDY VALENTINE MD Electronically signed by: Reviewed: Reviewed by Me Departure Impression Primary Impression: Lumbago Qualified Codes: M54.50 - Low back pain, unspecified Disposition: HOME, SELF-CARE Condition: Stable Departure-Patient Inst. Decision time for Depature: 11:44 Referrals: ROSALINO PEDERSEN DO (PCP/Family) Primary Care Physician Patient Instructions: Back Exercises, Low Back Pain (DC) Add. Discharge Instructions: Drink plenty of fluids. Choose ibuprofen 800 mg every 8 hours or naproxen 2 tablets twice a day on a scheduled basis for its anti-inflammatory effect. Tylenol 1000 mg every 8 hours as needed for pain. Lidocaine patches, topical creams such as icy hot or Biofreeze etc. You may cut a lidocaine patch in half and placed on either side of the back. Obtain a back brace and wear it on the days that it helps. The steroid should kick in around 12 to 24 hours and last 5 to 7 days total. This will help reduce the inflammation in your back that is causing the pinched nerves which cause your pain and muscle spasms. You may also use Robaxin 1.5 g every 8 hours as needed for muscle relaxant. Do not combine this with cyclobenzaprine as you will achieve an unsafe level of drowsiness. Make a follow-up appointment in 2 to 4 weeks with your primary care provider for reevaluation. Call [facility] physical therapy at [phone] for no upfront cost evaluation. There is a handout on back extension and flexion exercises you can review and work on. 20 pound weight restriction for 2 weeks. Promptly return to the nearest ER if you experience inability to urinate, stool, numbness in your saddle region, weakness resulting in falls. All discharge instructions reviewed with patient and/or family. Voiced understanding. Scripts Methocarbamol (Methocarbamol) 750 Mg Tablet 750-1500 MG PO Q8H PRN for SPASMS, #20 TAB 0 Refills Prov: ROSANNE SOSA 02/28/22 Work/School Note: Work Release Form Date Seen in the Emergency Department: Feb 28, 2022 Return to Work: Mar 03, 2022 Restrictions: Need Release from Doctor Other Restrictions Listed Below: Do not lift, push or heat treat puller 20 pounds until 03/14/2022. Copy Copies To 1: ROSALINO PEDERSEN TITUS J Feb 28, 2022 09:15
[2022-02-28 09:36] LABS: BILIRUBIN,URINE NEGATIVE (NEGATIVE); CLARITY,URINE CLEAR; COLOR,URINE YELLOW; GLUCOSE, URINE (UA) NEGATIVE (NEGATIVE); KETONES,URINE NEGATIVE (NEGATIVE); LEUKOCYTE ESTERASE ,URINE 1+ (NEGATIVE); NITRITE,URINE NEGATIVE (NEGATIVE); PROTEIN,URINE NEGATIVE (NEGATIVE)
[2022-02-28] MEDS ORDERED: KETOROLAC 60 MG/2 ML VIAL IM ONE (09:45)
[2022-02-28 09:49] LABS: BACTERIA,URINE MODERATE /HPF
--- NOTE | 2022-02-28 11:20 | Diagnostic Imaging Report ---
CLINICAL INDICATION: Patient with lower back pain since last Saturday. No known trauma. EXAM: X-ray of the lumbar spine, three views. COMPARISON: X-ray of the lumbar spine dated 02/03/2018. FINDINGS: There is no interval acute lumbar spine fracture. Stable roughly 5 mm of grade 1 anterolisthesis of L4 on L5. There is stable rvbfisas-wn-hsmlep loss of disc space height at the L4-L5 level. There is stable severe loss of disc space height at the L5-S1 level. There are hypertrophic spurs involving the L4-L5 and L5-S1 levels. There is lower lumbar spine facet arthropathy. There is levoscoliosis of the lumbar spine seen. There is sclerosis of the bilateral sacroiliac joints. IMPRESSION: 1: There is no acute lumbar spine fracture. 2: There is no significant change to the lower lumbar spine degenerative disease including grade 1 anterolisthesis of L4 on L5. Dictated by: Dictated on workstation # [id number]
[2022-02-28] MEDS ORDERED: methylPREDNISolone 40 MG/ML (DEPO MEDROL) VIAL IM ONE (11:45)
[2022-02-28] MEDS ORDERED: ORPHENADRINE 60 MG/2 ML (NORFLEX) AMP (ED ONLY) IM ONE (11:45)
[2022-02-28] MEDS ORDERED: METH-732 PO ×2 (11:49→14:46)
[2022-02-28 12:05] VITALS: BP 139/75
== END 2022-02-28 12:05 | disposition home or self-care (01) ==
LOC: EDUNIT# 08:26 → ER 08:28
DX: M54.50 Low back pain, unspecified (principal)
CPT/HCPCS: 72100; 81000; 87088

== ENCOUNTER 2022-07-12 09:03 | Emergency (ER) | payer MEDICAID ==
[~2022-07-12] VITALS: Ht 154.9 cm; Wt 74.8 kg
[~2022-07-12 09:03] MED LIST changes: +METH-732 PO
--- NOTE | 2022-07-12 09:45 | ED Back Pain ---
General Chief Complaint: Back Problems Stated Complaint: LOWER BACK PAIN RADIATING DOWN BOTH LEGS Nursing Triage Note: PT AMB TO RM 2 WITH . PT STATED THAT SHE IS HAVING BACK PAIN THE RAIDATES DOWN BOTH LEGS THAT STARTED SATURDAY. Source of Information: Patient Exam Limitations: No Limitations History of Present Illness Date Seen by Provider: Jul 12, 2022 Time Seen by Provider: 09:25 Initial Comments 52-year-old female presents emerged department today for mid low back pain. She states symptoms started on Saturday and have been progressive. She saw a [facility] doctor on Saturday who started her on ibuprofen and Flexeril. Also referred her to a chiropractor which she saw on Saturday. Symptoms have been consistent despite the current treatment. She has no lower extremity weakness numbness or tingling, no saddle anesthesia. She does state that the pain is dull throbbing and does radiate down the back of her bilateral legs. She has had similar symptoms in the past and actually had back surgery in 2007, microdiscectomy from the sound of her description. No known injury or overuse type activities. Allergies and Home Medications Allergies Coded Allergies: No Known Drug Allergies (Unverified , 03/26/13) Patient Home Medication List Home Medication List Reviewed: Yes Acetaminophen (Tylenol Extra Strength) 500 Mg Tablet, 500 MG PO Q6H Prescribed by: MASSIEL HILLMAN on 02/26/22900 Cefdinir (Cefdinir) 300 Mg Capsule, 300 MG PO BID Prescribed by: MASSIEL HILLMAN on 02/26/22 09 Cyclobenzaprine HCl (Cyclobenzaprine HCl) 10 Mg Tablet, 10 MG PO BID Prescribed by: MASSIEL HILLMAN on 02/26/22 09 Hydrocodone/Acetaminophen (Hydrocodone-Acetamin 5-325 mg) 5 Mg-325 Mg Tablet, 1 TAB PO Q6H PRN for PAIN-MODERATE (5-7) Prescribed by: ISABELLE PACHECO MD on 07/12/22 09 Ibuprofen (Ibuprofen) 600 Mg Tablet, 600 MG PO Q6H PRN for PAIN-MILD Prescribed by: MASSIEL HILLMAN on 02/26/22 09 Lidocaine (Lidocaine 5% Patch) 1 Each Adh..patch, 1 EACH TP Q12H PRN for Neuropathic pain Prescribed by: MASSIEL HILLMAN on 02/26/22 0901 Lisinopril/Hydrochlorothiazide (Lisinopril-Hctz 20-12.5 mg Tab) 1 Each Tablet, (Reported) Entered as Reported by: JOE NIELSEN on 10/19/16 1338 Methocarbamol (Methocarbamol) 750 Mg Tablet, 750-1,500 MG PO Q8H PRN for SPASMS Prescribed by: ROSANNE SOSA on 02/28/22 1446 Review of Systems Constitutional: no symptoms reported EENTM: no symptoms reported Respiratory: no symptoms reported Cardiovascular: no symptoms reported Gastrointestinal: no symptoms reported Genitourinary: no symptoms reported Musculoskeletal: back pain Skin: no symptoms reported Psychiatric/Neurological: No Symptoms Reported Past Ebzzvrs-Ldliqi-Fviflw Hx Patient Social History Tobacco Use?: No Use of E-Cig and/or Vaping dev: No Substance use?: No Alcohol Use?: No Pt feels they are or have been: No Immunizations Up To Date Influenza Vaccine Up-to-Date: Yes; Up-to-Date First/Initial COVID19 Vaccinat: YES Second COVID19 Vaccination Miguel: YES Third COVID19 Vaccination Date: YES Seasonal Allergies Seasonal Allergies: No Past Medical History Surgery/Hospitalization HX: BACK SURG 2008 Surgeries: Yes (HYSTEROSCOPY) Orthopedic, Tubal Ligation Respiratory: No Cardiac: Yes High Cholesterol, Hypertension Neurological: No Reproductive Disorders: No Genitourinary: No Gastrointestinal: Yes Hemorrhoids Musculoskeletal: Yes (BACK SX) Chronic Back Pain Endocrine: No HEENT: No Cancer: No Psychosocial: Yes Depression Integumentary: No Blood Disorders: No Family Medical History Reviewed Nursing Family Hx Heart Disease, Cancer, Diabetes, Hypertension Physical Exam Vital Signs Vital Signs - First Documented 07/12/22 09:15 Pulse 94 Resp 14 B/P (MAP) 155/81 (105) Pulse Ox 100 O2 Delivery Room Air Capillary Refill : Less Than 3 Seconds Height, Weight, BMI Height: 5'2.00" Weight: 163lbs. oz. 73.511620pk; 31.00 BMI Method:Stated General Appearance: No Apparent Distress, WD/WN HEENT: PERRL/EOMI, Normal ENT Inspection, Pharynx Normal Neck: Normal Inspection, Non Tender, Supple Cardiovascular: Regular Rate, Rhythm, No Edema, No Gallop, No JVD, No Murmur, Normal Peripheral Pulses Respiratory: Chest Non Tender, Lungs Clear, Normal Breath Sounds, No Accessory Muscle Use, No Respiratory Distress Gastrointestinal: Normal Bowel Sounds, No Organomegaly, No Pulsatile Mass, Non Tender, Soft Back: Normal Inspection, No CVA Tenderness, Other (Midline tenderness diffusely through the mid thoracic and lumbar region. No step-offs or deformity. No skin changes.) Extremity: Normal Capillary Refill, Normal Inspection, Normal Range of Motion, Non Tender, No Calf Tenderness Neurologic/Psychiatric: Alert, Oriented x3, No Motor/Sensory Deficits, Normal Mood/Affect, occupational ther II-XII Norm as Tested, Other (Normal reflexes bilateral lower extremity) Skin: Normal Color, Warm/Dry Progress/Results/Core Measures Results/Orders My Orders Orders - ISABELLE PACHECO DO Ketorolac Injection (Toradol Injection) (07/12/22 10:00) Hydrocodone/Apap 5/325 Tablet (Lortab 5 (07/12/22 10:00) Medications Given in ED Current Medications Medications Dose Ordered Sig/Wayne Route Start Time Stop Time Status Last Admin Dose Admin Acetaminophen/ Hydrocodone Bitart 1 ea ONCE ONCE PO 07/12/22 10:00 07/12/22 10:01 07/12/22 09:59 1 EA Vital Signs/I&O 07/12/22 09:15 Pulse 94 Resp 14 B/P (MAP) 155/81 (105) Pulse Ox 100 O2 Delivery Room Air Blood Pressure Mean: 105 Departure Communication (Admissions) Patient is hemodynamically stable with no metabolic symptoms that require imaging at this time. Discharge home with supportive care and close follow-up. Impression Primary Impression: Low back pain Qualified Codes: M54.42 - Lumbago with sciatica, left side; M54.41 - Lumbago with sciatica, right side Disposition: HOME, SELF-CARE Condition: Stable Departure-Patient Inst. Referrals: ROSALINO PEDERSEN DO (PCP/Family) Primary Care Physician Patient Instructions: Low Back Pain in Adults Add. Discharge Instructions: Continue to take anti-inflammatory medicine, muscle relaxers at home as needed. Take the provided pain medication as needed as well. This may make you drowsy so do not drive or make important decisions while taking them. perform stretching exercises as shown to the emergency department All discharge instructions reviewed with patient and/or family. Voiced understanding. Scripts Hydrocodone/Acetaminophen (Hydrocodone-Acetamin 5-325 mg) 5 Mg-325 Mg Tablet 1 TAB PO Q6H PRN for PAIN-MODERATE (5-7) for 3 Days, #12 TAB Prov: ISABELLE PACHECO DO 07/12/22 ISABELLE PACHECO DO Jul 12, 2022 09:45
[2022-07-12] MEDS ORDERED: KETOROLAC 30 MG/ML VIAL ONE (09:56)
[2022-07-12] MEDS ORDERED: ACHD5005 PO (09:58)
[2022-07-12] MEDS ORDERED: KETOROLAC 15 MG/ML VIAL IVP ONE ×2 (10:00)
[2022-07-12] MEDS ORDERED: HYDROcodone/APAP 5 MG/325 MG (LORTAB) TAB PO ONE (10:00)
[2022-07-12 10:32] VITALS: BP 131/83
== END 2022-07-12 10:32 | disposition home or self-care (01) ==
LOC: EDUNIT# 09:03 → ER 09:06
DX: M54.50 Low back pain, unspecified (principal); Z98.890 Other specified postprocedural states

== ENCOUNTER 2022-09-01 14:44 | Emergency (ER) | payer MEDICAID ==
[~2022-09-01] VITALS: Ht 155 cm; Wt 74.0 kg
[~2022-09-01 14:44] MED LIST changes: +ACHD5005 PO
[2022-09-01] MEDS ORDERED: KETOROLAC 30 MG/ML VIAL IVP STA (15:03)
[2022-09-01] MEDS ORDERED: NS IV 1000 ML 1,000 ML IV STA (15:03)
--- NOTE | 2022-09-01 15:13 | ED Chest Pain ---
General Chief Complaint: Chest Pain Stated Complaint: CHEST PAIN/SOA Nursing Triage Note: PT STATES CHEST PAIN THAT STARTED SATURDAY, SWELLING AND SOB, PAIN IN MID UPPER CHEST TO LT ARM AND BACK, SWEATY AND FEELS LIKE HEART IS RACING Source: patient Exam Limitations: no limitations History of Present Illness Date Seen by Provider: Sep 01, 2022 Time Seen by Provider: 14:56 Initial Comments Here with report of chest pain that is central and radiating around the sides bilateral with worse on the left than the right. States its sharp and goes to the left arm. States that she feels fast heart rate and numbness in her left hand. She is also noted swelling in her arms. Did have COVID infection in late July and recovered from that. She has not had chest pain before. She denies other significant medical problems. 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 NTG SL INSERT MOLDING OPERATOR: No Associated Symptoms: No abdominal pain; back pain; No diaphoresis, No dizziness, No fever/chills; shortness of breath; No weakness Allergies and Home Medications Allergies Coded Allergies: No Known Drug Allergies (Unverified , 03/26/13) Patient Home Medication List Home Medication List Reviewed: Yes Acetaminophen (Tylenol Extra Strength) 500 Mg Tablet, 500 MG PO Q6H Prescribed by: MASSIEL HILLMAN on 02/26/22900 Cefdinir (Cefdinir) 300 Mg Capsule, 300 MG PO BID Prescribed by: MASSIEL HILLMAN on 02/26/22 09 Cyclobenzaprine HCl (Cyclobenzaprine HCl) 10 Mg Tablet, 10 MG PO BID Prescribed by: MASSIEL HILLMAN on 02/26/22 09 Hydrocodone/Acetaminophen (Hydrocodone-Acetamin 5-325 mg) 5 Mg-325 Mg Tablet, 1 TAB PO Q6H PRN for PAIN-MODERATE (5-7) Prescribed by: ISABELLE PACHECO MD on 07/12/22 09 Ibuprofen (Ibuprofen) 600 Mg Tablet, 600 MG PO Q6H PRN for PAIN-MILD Prescribed by: MASSIEL HILLMAN on 02/26/22 09 Lidocaine (Lidocaine 5% Patch) 1 Each Adh..patch, 1 EACH TP Q12H PRN for Neuropathic pain Prescribed by: MASSIEL HILLMAN on 02/26/22 0901 Lisinopril/Hydrochlorothiazide (Lisinopril-Hctz 20-12.5 mg Tab) 1 Each Tablet, (Reported) Entered as Reported by: JOE NIELSEN on 10/19/16 1338 Methocarbamol (Methocarbamol) 750 Mg Tablet, 750-1,500 MG PO Q8H PRN for SPASMS Prescribed by: ROSANNE SOSA on 02/28/22 1446 Review of Systems Review of Systems Constitutional: No chills, No fever EENTM: No Nose Congestion, No Throat Pain Respiratory: Denies Cough; Shortness of Air Cardiovascular: Chest Pain, Edema, Irregular Heart Rate, Palpitations Gastrointestinal: Denies Nausea, Denies Vomiting Genitourinary: No Symptoms Reported Musculoskeletal: muscle pain; No muscle stiffness Skin: No change in color, No lesions Psychiatric/Neurological: No Symptoms Reported All Other Systems Reviewed Negative Unless Noted: Yes Past Tyfqxcy-Lxkxxp-Zcnded Hx Patient Social History Tobacco Use?: Yes Smoking Status: Former Smoker Substance use?: No Alcohol Use?: No Immunizations Up To Date First/Initial COVID19 Vaccinat: J&J Second COVID19 Vaccination Miguel: Oyster Third COVID19 Vaccination Date: YES Seasonal Allergies Seasonal Allergies: No Past Medical History Surgery/Hospitalization HX: BACK SURG 2009, HYPERTENSION Surgeries: Yes (HYSTEROSCOPY) Orthopedic, Tubal Ligation Respiratory: No Cardiac: Yes High Cholesterol, Hypertension Neurological: No Reproductive Disorders: No Genitourinary: No Gastrointestinal: Yes Hemorrhoids Musculoskeletal: Yes (BACK SX) Chronic Back Pain Endocrine: No HEENT: No Cancer: No Psychosocial: Yes Depression Integumentary: No Blood Disorders: No Family Medical History Reviewed Nursing Family Hx Heart Disease, Cancer, Diabetes, Hypertension Physical Exam Vital Signs Vital Signs - First Documented 09/01/22 14:47 Temp 37.5 Pulse 94 Resp 22 B/P (MAP) 167/95 (119) Pulse Ox 100 O2 Delivery Room Air Capillary Refill : Less Than 3 Seconds Height, Weight, BMI Height: 5'2.00" Weight: 163lbs. oz. 73.911418gd; 30.00 BMI Method:Stated General Appearance: No Apparent Distress, WD/WN HEENT: PERRL/EOMI, Pharynx Normal Neck: Non Tender, Supple Respiratory: Lungs Clear, Normal Breath Sounds, Other (Tender to palpation along chest wall anteriorly especially over sternum and left sternal border) Cardiovascular: No Murmur, Tachycardia Gastrointestinal: Non Tender, Soft Extremity: Normal Inspection, Normal Range of Motion, Non Tender, Other (Trace edema to ankles bilateral and reports hands are puffy which is noted mildly.) Neurologic/Psychiatric: Alert, Oriented x3 Skin: Normal Color, Warm/Dry Progress/Results/Core Measures Results/Orders Lab Results Laboratory Tests Test 09/01/22 14:52 09/01/22 16:50 Range/Units White Blood Count 7.0 4.3-11.0 10^3/uL Red Blood Count 4.91 3.80-5.11 10^6/uL Hemoglobin 14.6 11.5-16.0 g/dL Hematocrit 44 35-52 % Mean Corpuscular Volume 89 80-99 fL Mean Corpuscular Hemoglobin 30 25-34 pg Mean Corpuscular Hemoglobin Concent 33 32-36 g/dL Red Cell Distribution Width 12.8 10.0-14.5 % Platelet Count 267 130-400 10^3/uL Mean Platelet Volume 12.6 H 9.0-12.2 fL Immature Granulocyte % (Auto) 0 % Neutrophils (%) (Auto) 55 42-75 % Lymphocytes (%) (Auto) 35 12-44 % Monocytes (%) (Auto) 8 0-12 % Eosinophils (%) (Auto) 3 0-10 % Basophils (%) (Auto) 0 0-10 % Neutrophils # (Auto) 3.8 1.8-7.8 X 10^3 Lymphocytes # (Auto) 2.4 1.0-4.0 X 10^3 Monocytes # (Auto) 0.6 0.0-1.0 X 10^3 Eosinophils # (Auto) 0.2 0.0-0.3 10^3/uL Basophils # (Auto) 0.0 0.0-0.1 10^3/uL Immature Granulocyte # (Auto) 0.0 0.0-0.1 10^3/uL Prothrombin Time 12.6 12.2-14.7 SEC INR Comment 0.9 0.8-1.4 Activated Partial Thromboplast Time 29 24-35 SEC D-Dimer 0.46 0.00-0.49 UG/ML Sodium Level 140 135-145 MMOL/L Potassium Level 3.7 3.6-5.0 MMOL/L Chloride Level 103 98-107 MMOL/L Carbon Dioxide Level 24 21-32 MMOL/L Anion Gap 13 5-14 MMOL/L Blood Urea Nitrogen 11 7-18 MG/DL Creatinine 0.75 0.60-1.30 MG/DL Estimat Glomerular Filtration Rate 96 BUN/Creatinine Ratio 15 Glucose Level 85 70-105 MG/DL Calcium Level 10.0 8.5-10.1 MG/DL Corrected Calcium 9.6 8.5-10.1 MG/DL Magnesium Level 1.7 1.6-2.4 MG/DL Total Bilirubin 0.7 0.1-1.0 MG/DL Aspartate Amino Transf (AST/SGOT) 66 H 5-34 U/L Alanine Aminotransferase (ALT/SGPT) 89 H 0-55 U/L Alkaline Phosphatase 87 40-136 U/L Myoglobin 41.6 10.0-92.0 NG/ML Troponin I < 0.028 < 0.028 <0.028 NG/ML Total Protein 8.5 H 6.4-8.2 GM/DL Albumin 4.5 3.2-4.5 GM/DL Lipase 53 8-78 U/L My Orders Orders - SHAUN RAMÍREZ MD Ekg Tracing (09/01/22 14:46) Cbc With Automated Diff (09/01/22 15:03) Magnesium (09/01/22 15:03) Chest 1 View, Ap/Pa Only (09/01/22 15:03) Ekg Tracing (09/01/22 15:03) Comprehensive Metabolic Panel (09/01/22 15:03) Myoglobin Serum (09/01/22 15:03) Protime With Inr (09/01/22 15:03) Partial Thromboplastin Time (09/01/22 15:03) O2 (09/01/22 15:03) Monitor-Rhythm Ecg Trace Only (09/01/22 15:03) Lipid Panel (09/02/22 06:00) Ed Iv/Invasive Line Start (09/01/22 15:03) Lipase (09/01/22 15:03) Fibrin Degradation Products (09/01/22 15:03) Troponin I [place] (09/01/22 15:03) Aspirin Chewable Tablet (Baby Aspirin Ch (09/01/22 15:15) Ketorolac Injection (Toradol Injection) (09/01/22 15:03) Ns Iv 1000 Ml (Sodium Chloride 0.9%) (09/01/22 15:03) Troponin I [place] (09/01/22 16:02) Medications Given in ED Current Medications Medications Dose Ordered Sig/Wayne Route Start Time Stop Time Status Last Admin Dose Admin Aspirin 324 mg ONCE ONCE PO 09/01/22 15:15 09/01/22 15:16 DC 09/01/22 15:18 324 MG Vital Signs/I&O 09/01/22 09/01/22 14:47 15:18 Temp 37.5 37.5 Pulse 94 Resp 22 B/P (MAP) 167/95 (119) Pulse Ox 100 O2 Delivery Room Air Blood Pressure Mean: 119 Progress Progress Note : Progress Note Seen and evaluated. Chest pain protocol initiated including IV, labs, EKG and chest x-ray. We will get both troponin and D-dimer for evaluation of possible cardiac versus pulmonary embolism event. Normal saline 1 L bolus ordered. ASA 324 mg p.o. for chest pain protocol. We will give Toradol 30 mg IV for chest wall pain. Patient is at higher risk for pulmonary embolism due to recent COVID infection. We will consider CT angiogram based on D-dimer results as patient is not hypoxic and only mildly tachycardic. We will see if fluids help tachycardia as well and we can resolve pain with meds. This was discussed with the patient who agrees. Monitor patient. 1530: Single view chest x-ray does not show any acute findings as interpreted by me and confirmed by radiology. D-dimer is negative. We will monitor for improvement. We will try to avoid CT scan if possible as I think the patient is lower risk now for pulmonary embolism. Monitor patient. 1655: Repeat troponin ordered. Patient remains free of pain and doing better. 1733: Repeat troponin negative. Feel comfortable with discharge at this point. We did discuss at length need for cardiology follow-up and I will give her the name for Dr Thacker but also instructed her to work through the clinic for cardiology referral as needed and follow-up. We did also discuss constipation as that seems to be one of her concerns. We discussed MiraLAX therapy as well as distal therapy such as fleets enema or Dulcolax suppositories. We did also discuss diet. She will discuss this with her doctor as well. Discharged home with return precautions. Patient verbalized understanding of instructions and agreement with plan. Initial ECG Impression Date: Sep 01, 2022 Initial ECG Impression Time: 14:51 Initial ECG Rate: 91 Initial ECG Rhythm: Normal Sinus Comment Sinus rhythm with artifact. Normal axis. No evidence of ST elevation FL. Interpreted by me. Diagnostic Imaging Diagonstic Imaging: Xray Plain Films/CT/US/NM/MRI: chest Comments [facility] [place], [place] NAME: FLORENCIO POSEY [facility] REC#: [id number] PT STATUS: REG ER : 1970 PHYSICIAN: SHAUN RAMÍREZ MD ADMIT DATE: 09/01/22/ER Draft Date of Exam:09/01/22 CHEST 1 VIEW, AP/PA ONLY INDICATION: Chest pain. TIME OF EXAM: 3:19 PM. COMPARISON: Correlation is made with prior chest 02/22/2018. FINDINGS: The heart size is normal. The pulmonary vascularity is unremarkable. The lungs are clear. No infiltrate, effusion or pneumothorax is detected. IMPRESSION: No acute cardiopulmonary process is detected. Dictated on workstation # [id number] Dict: 09/01/22 1521 Trans: 09/01/22 1527 [facility] [id number] Interpreted by: JOSR SINGH MD Electronically signed by: Reviewed: Reviewed by Me Departure Impression Primary Impression: Chest pain Qualified Codes: R07.9 - Chest pain, unspecified Additional Impression: Constipation Qualified Codes: K59.00 - Constipation, unspecified Disposition: 01 HOME, SELF-CARE Condition: Improved Departure-Patient Inst. Referrals: JASWINDER THACKER MD FACP [facility] ROSALINO PEDERSEN DO (PCP/Family) Primary Care Physician Patient Instructions: Chest Pain (DC), Chest Pain That Is Not Caused by the Heart (DC), Constipation, Adult (DC) Add. Discharge Instructions: All discharge instructions reviewed with patient and/or family. Voiced understanding. Drink plenty fluids and get plenty of rest. You may use MiraLAX or the generic, 1 capful twice daily for 3 days and then one half capful twice daily thereafter to keep stools soft. You may increase or decrease the dose as needed to get to normal stool. You may also try fleets enema or generic or Dulcolax suppository or generic to aid in relieving constipation. Start a high-fiber diet after that. Follow-up with your doctor for recheck and further evaluation and cardiology referral. You may also schedule appointment directly with Dr. Thacker if no referral needed. It is important that you follow-up in both areas as you need further evaluation. For the chest wall type pain, you may use [id number] Tylenol/acetaminophen 1000 mg every 6-8 hours as needed for pain. You may also use ibuprofen up to 600 mg every 8 hours as needed for pain. If you get stomach upset with ibuprofen, you may add Pepcid or famotidine as needed to reduce stomach acid. Return for worse pain, swelling, weakness, breathing problems, fever or other concerns as needed. Work/School Note: Work Release Form Date Seen in the Emergency Department: Sep 01, 2022 Return to Work: Sep 03, 2022 Restrictions: No Restrictions Copy Copies To 1: LESLYE BERNABE TIMOTHY D MD Sep 01, 2022 15:13
[2022-09-01 15:14] LABS: ALBUMIN 4.5 GM/DL (3.2-4.5); BASOPHILS % (AUTO) 0 % (0-10); EOSINOPHILS # (AUTO) 0.2 10^3/uL (0.0-0.3); EOSINOPHILS % (AUTO) 3 % (0-10); HEMATOCRIT 44 % (35-52); HEMOGLOBIN 14.6 g/dL (11.5-16.0); LYMPHOCYTES # (AUTO) 2.4 X 10^3 (1.0-4.0); LYMPHOCYTES % (AUTO) 35 % (12-44); MEAN CORPUSCULAR HEMOGLOBIN 30 pg (25-34); MEAN CORPUSCULAR HGB CONC 33 g/dL (32-36); MEAN CORPUSCULAR VOLUME 89 fL (80-99); MEAN PLATELET VOLUME 12.6 fL (9.0-12.2); MONOCYTES # (AUTO) 0.6 X 10^3 (0.0-1.0); MONOCYTES % (AUTO) 8 % (0-12); NEUTROPHILS # (AUTO) 3.8 X 10^3 (1.8-7.8); NEUTROPHILS % (AUTO) 55 % (42-75); PLATELET COUNT 267 10^3/uL (130-400)
[2022-09-01 15:15] LABS: POTASSIUM 3.7 MMOL/L (3.6-5.0)
[2022-09-01] MEDS ORDERED: ASPIRIN 81 MG CHEW (CHILDREN'S ASA) PO ONE (15:15)
[2022-09-01 15:17] LABS: TOTAL PROTEIN 8.5 GM/DL (6.4-8.2)
[2022-09-01 15:18] LABS: INR 0.9 (0.8-1.4); PROTHROMBIN TIME PATIENT 12.6 SEC (12.2-14.7)
[2022-09-01 15:19] LABS: BILIRUBIN,TOTAL 0.7 MG/DL (0.1-1.0)
[2022-09-01 15:20] LABS: CREATININE SERUM 0.75 MG/DL (0.60-1.30)
[2022-09-01 15:24] LABS: MAGNESIUM 1.7 MG/DL (1.6-2.4)
--- NOTE | 2022-09-01 15:28 | Diagnostic Imaging Report ---
INDICATION: Chest pain. TIME OF EXAM: 3:19 PM. COMPARISON: Correlation is made with prior chest 02/22/2018. FINDINGS: The heart size is normal. The pulmonary vascularity is unremarkable. The lungs are clear. No infiltrate, effusion or pneumothorax is detected. IMPRESSION: No acute cardiopulmonary process is detected. Dictated by: Dictated on workstation # [id number]
[2022-09-01 17:42] VITALS: BP 126/71
== END 2022-09-01 17:42 | disposition home or self-care (01) ==
LOC: EDUNIT# 14:44 → ER 14:45
DX: R07.9 Chest pain, unspecified (principal); K59.00 Constipation, unspecified; R00.0 Tachycardia, unspecified; Z87.891 Personal history of nicotine dependence; Z86.16 Personal history of COVID-19
CPT/HCPCS: 36415; 71045; 80053; 83690; 83735; 83874; 84484; 85025; 85379; 85610; 85730; 93005; 93041

== ENCOUNTER 2023-04-03 08:17 | Observation (INO) | payer MEDICAID ==
[~2023-04-03] VITALS: Ht 157.5 cm; Wt 76.4 kg
[2023-04-03] MEDS ORDERED: NS IV 1000 ML 1,000 ML IV STA (08:40)
[2023-04-03] MEDS ORDERED: ONDANSETRON 4 MG/2 ML (SDV) Z0FRAN IVP ONE (08:45)
--- NOTE | 2023-04-03 08:45 | ED General ---
General Chief Complaint: Dizziness/Syncope Stated Complaint: DIZZINESS | NAUSEA | RT ARM NUMBNESS | CANNOT WALK Nursing Triage Note: DIZZINESS STARTING THIS AM. Source of Information: Patient Exam Limitations: No Limitations History of Present Illness Date Seen by Provider: April 03, 2023 Time Seen by Provider: 08:33 Initial Comments 52-year-old female presents to the emergency department today for dizziness, nausea. Symptoms started about 730 this morning. She also describes some mild right arm numbness. She denies any recent URI type symptoms, fevers chills ru nny nose, ear symptoms, sore throat or sinus issues. She has never had similar symptoms in the past. It does seem to be worse when she is upright but is not specifically related to head position per her report. She is nauseated but has not vomited. No blurred or double vision. No upper or lower extremity weakness. He does tell me that about a month ago they increased her thyroid medications. All other systems reviewed and negative except documented per HPI. Voice recognition software was used to help create this chart Allergies and Home Medications Allergies Coded Allergies: No Known Drug Allergies (Unverified , 03/26/13) Patient Home Medication List Home Medication List Reviewed: Yes Acetaminophen (Tylenol Extra Strength) 500 Mg Tablet, 500 MG PO Q6H Prescribed by: MASSIEL HILLMAN on 02/26/22900 Cefdinir (Cefdinir) 300 Mg Capsule, 300 MG PO BID Prescribed by: MASSIEL HILLMAN on 02/26/22902 Cyclobenzaprine HCl (Cyclobenzaprine HCl) 10 Mg Tablet, 10 MG PO BID Prescribed by: MASSIEL HILLMAN on 02/26/22900 Hydrocodone/Acetaminophen (Hydrocodone-Acetamin 5-325 mg) 5 Mg-325 Mg Tablet, 1 TAB PO Q6H PRN for PAIN-MODERATE (5-7) Prescribed by: ISABELLE PACHECO MD on 07/12/22 09 Ibuprofen (Ibuprofen) 600 Mg Tablet, 600 MG PO Q6H PRN for PAIN-MILD Prescribed by: MASSIEL HILLMAN on 02/26/22900 Lidocaine (Lidocaine 5% Patch) 1 Each Adh..patch, 1 EACH TP Q12H PRN for Neuropathic pain Prescribed by: MASSIEL HILLMAN on 02/26/22900 Lisinopril/Hydrochlorothiazide (Lisinopril-Hctz 20-12.5 mg Tab) 1 Each Tablet, (Reported) Entered as Reported by: JOE NIELSEN on 10/19/16 1338 Methocarbamol (Methocarbamol) 750 Mg Tablet, 750-1,500 MG PO Q8H PRN for SPASMS Prescribed by: ROSANNE SOSA on 02/28/22 1446 Review of Systems Review of Systems Constitutional: see HPI Past Dmhseny-Rqydem-Amnbdh Hx Patient Social History Tobacco Use?: No Substance use?: No Alcohol Use?: No Immunizations Up To Date First/Initial COVID19 Vaccinat: J&J Second COVID19 Vaccination Miguel: Triventus Third COVID19 Vaccination Date: YES Seasonal Allergies Seasonal Allergies: No Past Medical History Surgery/Hospitalization HX: BACK SURG 2009, HYPERTENSION Surgeries: Yes (HYSTEROSCOPY) Orthopedic, Tubal Ligation Respiratory: No Cardiac: Yes High Cholesterol, Hypertension Neurological: No Reproductive Disorders: No Genitourinary: No Gastrointestinal: Yes Hemorrhoids Musculoskeletal: Yes (BACK SX) Chronic Back Pain Endocrine: No HEENT: No Cancer: No Psychosocial: Yes Depression Integumentary: No Blood Disorders: No Family Medical History Heart Disease, Cancer, Diabetes, Hypertension Physical Exam Vital Signs Vital Signs - First Documented 04/03/23 08:30 Temp 36.3 Pulse 78 Resp 16 B/P (MAP) 140/80 (100) Pulse Ox 100 Capillary Refill : Less Than 3 Seconds Height, Weight, BMI Height: 5'2.00" Weight: 163lbs. oz. 73.253359st; 29.00 BMI Method:Stated General Appearance: No Apparent Distress, WD/WN Eyes: Bilateral Eye Normal Inspection, Bilateral Eye PERRL, Bilateral Eye EOMI, Bilateral Eye Other (No nystagmus) HEENT: PERRL/EOMI, TMs Normal, Normal ENT Inspection, Pharynx Normal Neck: Full Range of Motion, Normal Inspection Respiratory: Chest Non Tender, Lungs Clear, Normal Breath Sounds, No Accessory Muscle Use, No Respiratory Distress Cardiovascular: Regular Rate, Rhythm, No Murmur, Normal Peripheral Pulses Gastrointestinal: Normal Bowel Sounds, No Organomegaly, No Pulsatile Mass, Non Tender, Soft Extremity: Normal Capillary Refill, Normal Inspection, Normal Range of Motion Neurologic/Psychiatric: Alert, Oriented x3, No Motor/Sensory Deficits, Normal Mood/Affect, licensed clinical social worker II-XII Norm as Tested Skin: Normal Color, Warm/Dry Progress/Results/Core Measures Suspected Sepsis SIRS Temperature: Pulse: 78 Respiratory Rate: 16 Laboratory Tests 04/03/23 08:30: White Blood Count 5.6 Blood Pressure 140 /80 Mean: 100 Laboratory Tests 04/03/23 08:30: Creatinine 0.72, Platelet Count 276, Total Bilirubin 0.7 Results/Orders Lab Results Laboratory Tests Test 04/03/23 08:30 Range/Units White Blood Count 5.6 4.3-11.0 10^3/uL Red Blood Count 4.40 3.80-5.11 10^6/uL Hemoglobin 12.9 11.5-16.0 g/dL Hematocrit 38 35-52 % Mean Corpuscular Volume 87 80-99 fL Mean Corpuscular Hemoglobin 29 25-34 pg Mean Corpuscular Hemoglobin Concent 34 32-36 g/dL Red Cell Distribution Width 12.7 10.0-14.5 % Platelet Count 276 130-400 10^3/uL Mean Platelet Volume 12.2 9.0-12.2 fL Immature Granulocyte % (Auto) 0 % Neutrophils (%) (Auto) 52 42-75 % Lymphocytes (%) (Auto) 34 12-44 % Monocytes (%) (Auto) 9 0-12 % Eosinophils (%) (Auto) 4 0-10 % Basophils (%) (Auto) 1 0-10 % Neutrophils # (Auto) 2.9 1.8-7.8 10^3/uL Lymphocytes # (Auto) 1.9 1.0-4.0 10^3/uL Monocytes # (Auto) 0.5 0.0-1.0 10^3/uL Eosinophils # (Auto) 0.2 0.0-0.3 10^3/uL Basophils # (Auto) 0.1 0.0-0.1 10^3/uL Immature Granulocyte # (Auto) 0.0 0.0-0.1 10^3/uL Sodium Level 139 135-145 MMOL/L Potassium Level 3.4 L 3.6-5.0 MMOL/L Chloride Level 106 98-107 MMOL/L Carbon Dioxide Level 21 21-32 MMOL/L Anion Gap 12 5-14 MMOL/L Blood Urea Nitrogen 16 7-18 MG/DL Creatinine 0.72 0.60-1.30 MG/DL Estimat Glomerular Filtration Rate 101 BUN/Creatinine Ratio 22 Glucose Level 96 70-105 MG/DL Calcium Level 9.7 8.5-10.1 MG/DL Corrected Calcium 9.5 8.5-10.1 MG/DL Total Bilirubin 0.7 0.1-1.0 MG/DL Aspartate Amino Transf (AST/SGOT) 30 5-34 U/L Alanine Aminotransferase (ALT/SGPT) 40 0-55 U/L Alkaline Phosphatase 72 40-136 U/L Total Protein 7.4 6.4-8.2 GM/DL Albumin 4.3 3.2-4.5 GM/DL Thyroid Stimulating Hormone (TSH) 2.12 0.35-4.94 UIU/ML My Orders Orders - ISABELLE PACHECO DO Diazepam Injection (Valium Injection) (04/03/23 08:40) Ondansetron Injection (Zofran Injectio (04/03/23 08:45) Ns Iv 1000 Ml (Sodium Chloride 0.9%) (04/03/23 08:40) Cbc With Automated Diff (04/03/23 08:40) Comprehensive Metabolic Panel (04/03/23 08:40) Thyroid Stimulating Hormone (04/03/23 08:40) Ekg Tracing (04/03/23 08:40) Ct Head Wo (04/03/23 08:40) Ed Admission (Communication) (04/03/23 09:54) Medications Given in ED Current Medications Medications Dose Ordered Sig/Wayne Route Start Time Stop Time Status Last Admin Dose Admin Ondansetron HCl 8 mg ONCE ONCE IVP 04/03/23 08:45 04/03/23 08:46 DC 04/03/23 09:02 8 MG Vital Signs/I&O 04/03/23 04/03/23 08:30 08:48 Temp 36.3 Pulse 78 72 76 90 Resp 16 B/P (MAP) 140/80 (100) 142/82 (102) 148/80 (102) 162/95 (117) Pulse Ox 100 Capillary Refill : Less Than 3 Seconds Blood Pressure Mean: 100 ECG Comment Sinus rhythm 71 bpm. Normal intervals. Slight left axis deviation. No ST or T wave abnormalities. No ectopy. No STEMI. Departure Communication (Admissions) Patient is hemodynamically stable. She has right hand tingling but no focal exam deficits. NIH is 0. She has no nystagmus on exam. I gave her some Valium, IV fluids and Zofran. Her nausea is somewhat better but her dizziness remains. She tried to get up to the bedside commode and actually almost fell down. We did a CT scan of her head which was negative. Electrolytes are un remarkable and EKG is nonischemic. I do not think this is from dysrhythmia. He does seem like it is likely peripheral vertigo however she has no nystagmus or other findings to support this and with her right hand tingling as well I am concerned there might be more going on. That combined with the fact that she is so dizzy that I do not think it safe that she should go home I have talked to Dr. Linn who accepts the patient in admission for observation. sHe states she will place acute orders. Impression Primary Impression: Vertigo Disposition: ADMITTED INPATIENT Condition: Stable Admissions Decision to Admit Reason: Admit from ER (General) Departure-Patient Inst. Referrals: ROSALINO PEDERSEN DO (PCP/Family) Primary Care Physician ISABELLE PACHECO DO April 03, 2023 08:45
[2023-04-03 08:47] LABS: BASOPHILS # (AUTO) 0.1 10^3/uL (0.0-0.1); BASOPHILS % (AUTO) 1 % (0-10); EOSINOPHILS # (AUTO) 0.2 10^3/uL (0.0-0.3); EOSINOPHILS % (AUTO) 4 % (0-10); HEMATOCRIT 38 % (35-52); HEMOGLOBIN 12.9 g/dL (11.5-16.0); LYMPHOCYTES # (AUTO) 1.9 10^3/uL (1.0-4.0); LYMPHOCYTES % (AUTO) 34 % (12-44); MEAN CORPUSCULAR HEMOGLOBIN 29 pg (25-34); MEAN CORPUSCULAR HGB CONC 34 g/dL (32-36); MEAN CORPUSCULAR VOLUME 87 fL (80-99); MEAN PLATELET VOLUME 12.2 fL (9.0-12.2); MONOCYTES # (AUTO) 0.5 10^3/uL (0.0-1.0); MONOCYTES % (AUTO) 9 % (0-12); NEUTROPHILS # (AUTO) 2.9 10^3/uL (1.8-7.8); NEUTROPHILS % (AUTO) 52 % (42-75); PLATELET COUNT 276 10^3/uL (130-400); WHITE BLOOD COUNT 5.6 10^3/uL (4.3-11.0)
[2023-04-03 08:48] VITALS: BP_SYST 142; BP_SYST 148; BP_SYST 162; BP_DIAS 80; BP_DIAS 82; BP_DIAS 95
[2023-04-03 08:51] LABS: ALBUMIN 4.3 GM/DL (3.2-4.5); POTASSIUM 3.4 MMOL/L (3.6-5.0)
[2023-04-03 08:52] LABS: CALCIUM 9.7 MG/DL (8.5-10.1)
[2023-04-03 08:54] LABS: TOTAL PROTEIN 7.4 GM/DL (6.4-8.2)
[2023-04-03 08:55] LABS: BILIRUBIN,TOTAL 0.7 MG/DL (0.1-1.0)
[2023-04-03 08:57] LABS: CREATININE SERUM 0.72 MG/DL (0.60-1.30)
--- NOTE | 2023-04-03 09:02 | Diagnostic Imaging Report ---
PROCEDURE: CT head without contrast. TECHNIQUE: Multiple contiguous axial images were obtained through the brain without the use of intravenous contrast. Auto Exposure Controls were utilized during the CT exam to meet ALARA standards for radiation dose reduction. INDICATION: Awoke dizzy. COMPARISON: No priors. FINDINGS: There is no intracranial hemorrhage, hydrocephalus, cerebral edema, mass, mass effect, or evidence for an elevation of the intracranial pressures. There is no hydrocephalus. No loss of the bray-white matter differentiations. The orbital contents are unremarkable. The paranasal sinuses are unremarkable. There is no mastoid effusion. The middle ear cavities are unremarkable. No calvarial abnormality. IMPRESSION: Normal noncontrasted CT head. Dictated by: Dictated on workstation # [id number]
[2023-04-03 11:04] VITALS: BP 147/68
[2023-04-03] MEDS: ACETAMINOPHEN 500 MG TAB (TYLENOL) PO PRN ×2 (13:15→20:38)
[2023-04-03] MEDS ORDERED: LISI20TA26 PO (14:43)
[2023-04-03] MEDS ORDERED: IBUP-1780 PO (14:43)
[2023-04-03] MEDS ORDERED: PREG75CA75 PO (14:43)
[2023-04-03] MEDS ORDERED: CETI10TA17 PO (14:43)
[2023-04-03] MEDS ORDERED: LEVO75TA6 PO (14:43)
[2023-04-03] MEDS ORDERED: LIDO700A45 TP (14:43)
[2023-04-03] MEDS ORDERED: OMEP40CA6 PO (14:43)
[2023-04-03 15:52] VITALS: BP 138/72
--- NOTE | 2023-04-03 15:55 | Diagnostic Imaging Report ---
PROCEDURE: MR imaging of the brain without contrast. TECHNIQUE: Multiplanar, multisequence MR imaging of the brain was performed without contrast. INDICATION: Dizziness. COMPARISON: CT head without contrast 04/03/2023. FINDINGS: No abnormal intracranial signal. No restricted water diffusion or hemosiderin deposition. No evidence of intracranial hemorrhage. Normal morphology including the major midline structures, sella, posterior fossa, and cerebellopontine angle. Normal intracranial flow voids. No hydrocephalus or extra-axial fluid collections. The orbits are negative. Paranasal sinuses and mastoids are clear. Normal bone marrow signal. IMPRESSION: Normal MRI of the brain without contrast. No acute findings. Dictated by: Dictated on workstation # [id number]
[2023-04-03 19:47] VITALS: BP 129/82
[2023-04-04 07:53] VITALS: BP 150/74
[2023-04-04] MEDS ORDERED: IBUPROFEN 800 MG (MOTRIN) TAB PO PRN (08:00)
[2023-04-04] MEDS ORDERED: LIDOCAINE 4% (SALONPAS) PATCH TP PRN (08:00)
[2023-04-04] MEDS: ACETAMINOPHEN 500 MG TAB (TYLENOL) PO PRN (08:08)
[2023-04-04 08:19] LABS: HEMATOCRIT 38 % (35-52); HEMOGLOBIN 12.6 g/dL (11.5-16.0); MEAN CORPUSCULAR HEMOGLOBIN 30 pg (25-34); MEAN CORPUSCULAR HGB CONC 34 g/dL (32-36); MEAN CORPUSCULAR VOLUME 88 fL (80-99); MEAN PLATELET VOLUME 11.8 fL (9.0-12.2); PLATELET COUNT 249 10^3/uL (130-400); WHITE BLOOD COUNT 5.2 10^3/uL (4.3-11.0)
[2023-04-04 08:38] LABS: CALCIUM 9.2 MG/DL (8.5-10.1); CREATININE SERUM 0.65 MG/DL (0.60-1.30); POTASSIUM 3.7 MMOL/L (3.6-5.0)
[2023-04-04] MEDS ORDERED: LEVOTHYROXINE 75 MCG (LEVOTHROID) TABLET PO SCH (09:00)
[2023-04-04] MEDS ORDERED: lisINopril 20 MG (PRINIVIL) TABLET PO SCH (09:00)
[2023-04-04] MEDS ORDERED: PREGABALIN 75 MG (LYRICA) CAP PO SCH (09:00)
[2023-04-04] MEDS ORDERED: LORATADINE (CLARITIN) 10 MG TAB PO SCH (09:00)
[2023-04-04] MEDS ORDERED: PANTOPRAZOLE 40 MG (PROTONIX) TAB PO SCH (09:00)
--- NOTE | 2023-04-04 09:26 | Short Stay Summary ---
History of Present Illness History of Present Illness Reason for visit/HPI 52 yo female woke up yesterday morning with severe dizziness as soon as she got up, kind of walked and made it to the living room and fell into a chair and tried to wait it out. Went to the bathroom and dizziness persisted, she closed her eyes and put her head down but still very dizzy when she got up, had to stagger back to the bedroom and fell into the bed and told her she didn't feel right. Dizziness is like room spinning. Did not improve with closing her eyes. Couldn't turn head to left because she felt like she was falling if she did that. Today feels a lot better, still needed steadying to walk, but can move head in bed and was able to get to the bathroom holding on to . [place] nauseous yesterday, very mild this morning after smelling coffee. Denies fever, blurry vision, double vision, hearing changes, ear pain. Admits headache last night that was about a 7, down to a 5 this morning. Denies weakness or numbness now. She did have tingling in right arm yesterday which is resolved. Denies vomiting, diarrhea. Date of Admission April 03, 2023 at 10:51 Date of Discharge Time Seen by Provider: 09:25 Attending Physician Rosalino Corea DO Admitting Physician Admitting Physician: Lopez Myers MD Attending Physician: Lopez Myers MD Consult Allergies and Home Medications Allergies Coded Allergies: No Known Drug Allergies (Unverified , 04/03/23) Patient Home Medication List Home Medication List Reviewed: Yes Cetirizine HCl (Cetirizine HCl) 10 Mg Tablet, 10 MG PO DAILY, (Reported) Entered as Reported by: ROSALINO PARIS on 04/03/231442 Last Action: Converted Ibuprofen (Ibuprofen) 800 Mg Tablet, 800 MG PO Q8H PRN for PAIN-MILD (1-4), (Reported) Entered as Reported by: ROSALINO PARIS on 04/03/231442 Last Action: Continued Levothyroxine Sodium (Levothyroxine Sodium) 75 Mcg Tablet, 75 MCG PO DAILY, (Reported) Entered as Reported by: ROSALINO PARIS on 04/03/231442 Last Action: Continued Lidocaine (Lidocaine 5% Patch) 5 % Adh..patch, 1 EACH TP DAILY PRN for PAIN- BREAKTHROUGH, (Reported) Entered as Reported by: ROSALINO PARIS on 04/03/231442 Last Action: Continued Lisinopril (Lisinopril) 20 Mg Tablet, 20 MG PO DAILY, (Reported) Entered as Reported by: ROSALINO PARIS on 04/03/231442 Last Action: Continued Meclizine HCl (Meclizine HCl) 25 Mg Tablet, 25 MG PO Q6H PRN for DIZZINESS Prescribed by: LOPEZ MYERS on 04/04/23 1205 Omeprazole (Omeprazole) 40 Mg Capsule.dr, 40 MG PO BID, (Reported) Entered as Reported by: ROSALINO PARIS on 04/03/231442 Last Action: Converted Pregabalin (Pregabalin) 75 Mg Capsule, 75 MG PO BID, (Reported) Entered as Reported by: ROSALINO PARIS on 04/03/231442 Last Action: Continued Discontinued Medications Acetaminophen (Tylenol Extra Strength) 500 Mg Tablet, 500 MG PO Q6H Discontinued Reason: No Longer Taking Prescribed by: MASSIEL HILLMAN on 02/26/22900 Last Action: Discontinued Cefdinir (Cefdinir) 300 Mg Capsule, 300 MG PO BID Discontinued Reason: No Longer Taking Prescribed by: MASSIEL HILLMAN on 02/26/22902 Last Action: Discontinued Cyclobenzaprine HCl (Cyclobenzaprine HCl) 10 Mg Tablet, 10 MG PO BID Discontinued Reason: No Longer Taking Prescribed by: MASSIEL HILLMAN on 02/26/22900 Last Action: Discontinued Hydrocodone/Acetaminophen (Hydrocodone-Acetamin 5-325 mg) 5 Mg-325 Mg Tablet, 1 TAB PO Q6H PRN for PAIN-MODERATE (5-7) Discontinued Reason: No Longer Taking Prescribed by: ISABELLE PACHECO MD on 07/12/22957 Last Action: Discontinued Ibuprofen (Ibuprofen) 600 Mg Tablet, 600 MG PO Q6H PRN for PAIN-MILD Discontinued Reason: No Longer Taking Prescribed by: MASSIEL HILLMAN on 02/26/22900 Last Action: Discontinued Lidocaine (Lidocaine 5% Patch) 1 Each Adh..patch, 1 EACH TP Q12H PRN for Neuropathic pain Discontinued Reason: No Longer Taking Prescribed by: MASSIEL HILLMAN on 02/26/22 0901 Last Action: Discontinued Lisinopril/Hydrochlorothiazide (Lisinopril-Hctz 20-12.5 mg Tab) 1 Each Tablet, (Reported) Discontinued Reason: No Longer Taking Entered as Reported by: JOE NIELSEN on 10/19/16 1338 Last Action: Discontinued Methocarbamol (Methocarbamol) 750 Mg Tablet, 750-1,500 MG PO Q8H PRN for SPASMS Discontinued Reason: No Longer Taking Prescribed by: ROSANNE SOSA on 02/28/22 1446 Last Action: Discontinued Past Rmtpqik-Yfgwil-Rfisrj Hx Patient Social History Former Smoker, Quit: Aug 06, 1998 2nd Hand Smoke Exposure: No Recent Hopitalizations: No Have you traveled recently?: No Alcohol Use?: No Pt feels they are or have been: No Seasonal Allergies Seasonal Allergies: No Surgeries Yes (HYSTEROSCOPY) Orthopedic, Tubal Ligation Respiratory No Cardiovascular Yes High Cholesterol, Hypertension Neurological No Reproductive System Hx Reproductive Disorders: No Genitourinary No Gastrointestinal Yes Hemorrhoids Musculoskeletal Yes (BACK SX) Chronic Back Pain Endocrine History of Endocrine Disorders: No HEENT History of HEENT Disorders: No Cancer No Psychosocial History of Psychiatric Problem: Yes Behavioral Health Disorders: Depression Integumentary History of Skin or Integumenta: No Blood Transfusions History of Blood Disorders: No Family Medical History Significant Family History: Heart Disease, Cancer, Diabetes, Hypertension Review of Systems Constitutional: see HPI EENTM: see HPI Respiratory: see HPI Cardiovascular: see HPI Gastrointestinal: see HPI Musculoskeletal: see HPI Skin: see HPI Physical Exam Vital Signs Vital Signs - First Documented 04/03/23 04/03/23 08:30 10:51 Temp 36.3 Pulse 78 Resp 16 B/P (MAP) 140/80 (100) Pulse Ox 100 O2 Delivery Room Air Capillary Refill : Less Than 3 Seconds Height, Weight, BMI Height: 5'2.00" Weight: 163lbs. oz. 73.808075ll; 30.79 BMI Method:Stated General Appearance: No Apparent Distress, WD/WN Eyes: Bilateral Eye PERRL, Bilateral Eye EOMI HEENT: Pharynx Normal Neck: No Carotid Bruit Respiratory: Lungs Clear, Normal Breath Sounds Cardiovascular: Regular Rate, Rhythm, No Murmur Gastrointestinal: Normal Bowel Sounds, Non Tender, Soft Extremity: No Pedal Edema Neurologic/Psychiatric: Alert, Oriented x3, Normal Mood/Affect, hairspring setter II-XII Norm as Tested; No Abnormal Cerebellar Tests, No Motor Weakness Skin: Normal Color, Warm/Dry Short Stay Diagnosis Discharge Diagnosis-Short Stay Admission Diagnosis: Intractable vertigo Right arm numbness Final Discharge Diagnosis: Benign positional paroxysmal vertigo Conclusion Labs Laboratory Tests 04/04/23 08:11: White Blood Count 5.2, Red Blood Count 4.27, Hemoglobin 12.6, Hematocrit 38, Mean Corpuscular Volume 88, Mean Corpuscular Hemoglobin 30, Mean Corpuscular Hemoglobin Concent 34, Red Cell Distribution Width 12.7, Platelet Count 249, Mean Platelet Volume 11.8, Sodium Level 139, Potassium Level 3.7, Chloride Level 107, Carbon Dioxide Level 23, Anion Gap 9, Blood Urea Nitrogen 12, Creatinine 0.65, Estimat Glomerular Filtration Rate 106, BUN/Creatinine Ratio 18, Glucose Level 101, Calcium Level 9.2 Conclusion/Plan Pt admitted and had normal CT head, MRI head and carotid US and had improvement in symptoms. Suspect BPPV, discussed PT outpatient. LOPEZ MYERS MD April 04, 2023 09:26
--- NOTE | 2023-04-04 10:05 | Diagnostic Imaging Report ---
PROCEDURE: US carotid duplex, bilateral. TECHNIQUE: Multiple real-time grayscale images were obtained over the carotid arteries in various projections, bilaterally. Additional spectral analysis and color Doppler duplex images were also obtained. INDICATION: Dizziness and vertigo FINDINGS: Normal arterial waveforms are seen throughout the common carotid and internal carotid arteries. There is minimal atherosclerotic plaque in the carotid bulbs, greater on the right. There is also antegrade flow within both vertebral arteries. IMPRESSION: No ultrasound evidence of hemodynamically significant stenosis or irregular plaque. Parameters based on the consensus panel Hurd-Scale and Doppler ultrasound criteria published September 2003, Radiology, Volume 229. DOPPLER (peak systolic velocity M/S Right Left CCA 0.97 1.14 ICA Proximal 0.94 0.65 ICA Mid 0.93 0.78 ICA Distal 0.96 0.99 RATIO 0.99 0.87 ECA 1.04 0.94 VERT 0.32 0.53 Dictated by: Dictated on workstation # [id number]
--- NOTE | 2023-04-04 10:48 | Physical Therapy Progress Note ---
Therapy Progress Note Patient in bed and will dismiss to home on this date per RN. PT issued written HEP on vestibular exercises (refer to chart for details). Exercises performed by patient with PT present. This PT recommended patient contact outpatient PT to receive BPPV. Patient and family voice understanding. 1 Educ:1 ([phone]) SHAHEEN ROBERTS PT April 04, 2023 10:48
[2023-04-04 11:36] VITALS: BP 143/72
[2023-04-04] MEDS ORDERED: MECL-149 PO (12:05)
== END 2023-04-04 13:30 | disposition home or self-care (01) ==
LOC: EDUNIT# 08:17 → ER 08:19 → 4TH 10:51
PROVIDERS: ADMIT Family Medicine; ATTEND Family Medicine
DX: H81.10 Benign paroxysmal vertigo, unspecified ear (principal); R20.0 Anesthesia of skin
CPT/HCPCS: 70450; 70551; 80048; 80053; 84443; 85025; 85027; 93005; 93880; 99284; G0378; 36415

== ENCOUNTER 2023-06-13 00:12 | Emergency (ER) | payer MEDICAID ==
[~2023-06-13 00:12] MED LIST changes: -CEPH500T PO
--- NOTE | 2023-06-13 01:21 | ED General ---
General Chief Complaint: Back Problems Stated Complaint: RIGHT RIB/BACK PAIN History of Present Illness Date Seen by Provider: Jun 13, 2023 Time Seen by Provider: 00:45 Initial Comments This is a 53 year old female with a history of HTN and high cholesterol presents to the ED with rib and abdominal pain. She states that on Saturday morning she developed a sharp pain in her RUQ and over her ribs that radiated to her back. She states it eventually went away, but by that evening it came back and it was worse. States that she has pain every time she takes a deep breath. She is unable to lay on her right side and rates the pain as a 6/10. Patient admits to using ibuprofen to get through the work day. She has been able to eat and drink without pain or difficulty. Last BM was yesterday morning and it was normal according to the patient. Patient denies fevers, chills, recent trauma to the area, nausea, vomiting, appetite change. (LEILA AGUILAR) Allergies and Home Medications Allergies Coded Allergies: No Known Drug Allergies (Unverified , 04/03/23) Patient Home Medication List Home Medication List Reviewed: Yes (WOLF OWENS MD) Cephalexin (Cephalexin) 500 Mg Tablet, 500 MG PO TID Prescribed by: WOLF JEAN on 06/13/23228 Cetirizine HCl (Cetirizine HCl) 10 Mg Tablet, 10 MG PO DAILY, (Reported) Entered as Reported by: ROSALINO PARIS on 04/03/23 144 Ibuprofen (Ibuprofen) 800 Mg Tablet, 800 MG PO Q8H PRN for PAIN-MILD (1-4), (Reported) Entered as Reported by: ROSALINO PARIS on 04/03/23 144 Levothyroxine Sodium (Levothyroxine Sodium) 75 Mcg Tablet, 75 MCG PO DAILY, (Reported) Entered as Reported by: ROSALINO PARIS on 04/03/23 144 Lidocaine (Lidocaine 5% Patch) 5 % Adh..patch, 1 EACH TP DAILY PRN for PAIN- BREAKTHROUGH, (Reported) Entered as Reported by: ROSALINO PARIS on 04/03/23 144 Lisinopril (Lisinopril) 20 Mg Tablet, 20 MG PO DAILY, (Reported) Entered as Reported by: ROSALINO PARIS on 04/03/23 1443 Meclizine HCl (Meclizine HCl) 25 Mg Tablet, 25 MG PO Q6H PRN for DIZZINESS Prescribed by: LOPEZ MYERS on 04/04/23 1205 Omeprazole (Omeprazole) 40 Mg Capsule.dr, 40 MG PO BID, (Reported) Entered as Reported by: ROSALINO PARIS on 04/03/23 1443 Pregabalin (Pregabalin) 75 Mg Capsule, 75 MG PO BID, (Reported) Entered as Reported by: ROSALINO PARIS on 04/03/23 1443 Review of Systems Review of Systems Constitutional: No chills, No fever Respiratory: No cough, No dyspnea on exertion Cardiovascular: No chest pain, No palpitations Gastrointestinal: abdominal pain (RUQ); No constipation, No diarrhea Genitourinary: frequency (LEILA AGUILAR) Past Sbrqcyv-Xygyvu-Jadojj Hx Patient Social History Tobacco Use?: No Substance use?: No Alcohol Use?: Yes Alcohol Frequency: Several times a month Pt feels they are or have been: No (LEILA AGUILAR) Immunizations Up To Date First/Initial COVID19 Vaccinat: J&J Second COVID19 Vaccination Miguel: Sokrati Third COVID19 Vaccination Date: J&J (LEILA AGUILAR) Seasonal Allergies Seasonal Allergies: No (LEILA AGUILAR) Past Medical History Surgery/Hospitalization HX: UPPER DENTURES ONLY WITH PATIENT ON ADMISSION TO 4TH FLOOR ROOM 419-1 BLACK AND CLEAR PLASTIC GLASSES WITH PATIENT ON ADMISSION TO 4TH FLOOR ROOM 419-1 BACK SURG 2009, HYPERTENSION Surgeries: Yes (HYSTEROSCOPY) Orthopedic, Tubal Ligation Respiratory: No Cardiac: Yes High Cholesterol, Hypertension Neurological: No Reproductive Disorders: No Genitourinary: No Gastrointestinal: Yes Hemorrhoids Musculoskeletal: Yes (BACK SX) Chronic Back Pain Endocrine: No Hyperthyroidism HEENT: No Cancer: No Psychosocial: Yes Depression Integumentary: No Blood Disorders: No (LEILA AGUILAR) Family Medical History Heart Disease, Cancer, Diabetes, Hypertension (LEILA AGUILAR) Physical Exam Vital Signs Vital Signs - First Documented 06/13/23 00:40 Temp 36.5 Pulse 77 Resp 18 B/P (MAP) 135/82 (99) Pulse Ox 100 O2 Delivery Room Air (WOLF OWENS MD) Vital Signs Capillary Refill : (LEILA AGUILAR) Height, Weight, BMI Height: 5'2.00" Weight: 163lbs. oz. 73.775873wl; 30.79 BMI Method:Stated General Appearance: No Apparent Distress, WD/WN HEENT: PERRL/EOMI Respiratory: Normal Breath Sounds, No Accessory Muscle Use Cardiovascular: Regular Rate, Rhythm Gastrointestinal: Normal Bowel Sounds, Tenderness (to deep palpation) Back: No CVA Tenderness Extremity: No Calf Tenderness Neurologic/Psychiatric: Alert, Oriented x3 (LEILA AGUILAR) Progress/Results/Core Measures Suspected Sepsis SIRS Temperature: Pulse: Respiratory Rate: Laboratory Tests 06/13/23 01:32: White Blood Count 6.0 Blood Pressure / Mean: Laboratory Tests 06/13/23 01:32: Creatinine 0.74, Platelet Count 257, Total Bilirubin 0.5 (LEILA AGUILAR) Results/Orders Lab Results Laboratory Tests Test 06/13/23 00:50 06/13/23 01:32 Range/Units Urine Color TJ H Urine Clarity CLEAR Urine pH 6.0 5-9 Urine Specific Gibson 1.030 H 1.016-1.022 Urine Protein TRACE H NEGATIVE Urine Glucose (UA) NEGATIVE NEGATIVE Urine Ketones NEGATIVE NEGATIVE Urine Nitrite NEGATIVE NEGATIVE Urine Bilirubin 1+ H NEGATIVE Urine Urobilinogen 0.2 < = 1.0 MG/DL Urine Leukocyte Esterase NEGATIVE NEGATIVE Urine RBC (Auto) NEGATIVE NEGATIVE Urine RBC NONE /HPF Urine WBC 5-10 H /HPF Urine Squamous Epithelial Cells 10-25 H /HPF Urine Crystals NONE /LPF Urine Bacteria MODERATE H /HPF Urine Casts NONE /LPF Urine Mucus LARGE H /LPF Urine Culture Indicated YES White Blood Count 6.0 4.3-11.0 10^3/uL Red Blood Count 4.08 3.80-5.11 10^6/uL Hemoglobin 12.0 11.5-16.0 g/dL Hematocrit 36 35-52 % Mean Corpuscular Volume 89 80-99 fL Mean Corpuscular Hemoglobin 29 25-34 pg Mean Corpuscular Hemoglobin Concent 33 32-36 g/dL Red Cell Distribution Width 13.8 10.0-14.5 % Platelet Count 257 130-400 10^3/uL Mean Platelet Volume 12.1 9.0-12.2 fL Immature Granulocyte % (Auto) 0 % Neutrophils (%) (Auto) 44 42-75 % Lymphocytes (%) (Auto) 41 12-44 % Monocytes (%) (Auto) 10 0-12 % Eosinophils (%) (Auto) 4 0-10 % Basophils (%) (Auto) 1 0-10 % Neutrophils # (Auto) 2.6 1.8-7.8 10^3/uL Lymphocytes # (Auto) 2.5 1.0-4.0 10^3/uL Monocytes # (Auto) 0.6 0.0-1.0 10^3/uL Eosinophils # (Auto) 0.2 0.0-0.3 10^3/uL Basophils # (Auto) 0.1 0.0-0.1 10^3/uL Immature Granulocyte # (Auto) 0.0 0.0-0.1 10^3/uL Sodium Level 139 135-145 MMOL/L Potassium Level 3.7 3.6-5.0 MMOL/L Chloride Level 106 98-107 MMOL/L Carbon Dioxide Level 22 21-32 MMOL/L Anion Gap 11 5-14 MMOL/L Blood Urea Nitrogen 21 H 7-18 MG/DL Creatinine 0.74 0.60-1.30 MG/DL Estimat Glomerular Filtration Rate 97 BUN/Creatinine Ratio 28 Glucose Level 96 70-105 MG/DL Calcium Level 9.3 8.5-10.1 MG/DL Corrected Calcium 9.2 8.5-10.1 MG/DL Total Bilirubin 0.5 0.1-1.0 MG/DL Aspartate Amino Transf (AST/SGOT) 28 5-34 U/L Alanine Aminotransferase (ALT/SGPT) 31 0-55 U/L Alkaline Phosphatase 75 40-136 U/L C-Reactive Protein High Sensitivity 0.41 0.00-0.50 MG/DL Total Protein 7.5 6.4-8.2 GM/DL Albumin 4.1 3.2-4.5 GM/DL (WOLF OWENS MD) My Orders Orders - WOLF OWENS MD Chest Pa/Lat (2 View) (06/13/23 01:13) Ed Iv/Invasive Line Start (06/13/23 01:13) Cbc With Automated Diff (06/13/23 01:13) Comprehensive Metabolic Panel (06/13/23 01:13) Hs C Reactive Protein (06/13/23 01:13) Ua Culture If Indicated (06/13/23 01:13) Urine Culture (06/13/23 00:50) Ketorolac Injection (Toradol Injection) (06/13/23 02:30) Ceftriaxone Iv/Im (Ceftriaxone Iv/Im) (06/13/23 02:22) Ns Iv 500 Ml (Sodium Chloride 0.9%) (06/13/23 02:30) (WOLF OWENS MD) Medications Given in ED Current Medications Medications Dose Ordered Sig/[place] Route Start Time Stop Time Status Last Admin Dose Admin Ketorolac Tromethamine 30 mg ONCE ONCE IVP 06/13/23 02:30 06/13/23 02:31 DC 06/13/23 02:34 30 MG Sodium Chloride 500 ml @ 0 mls/hr Q0M ONCE IV 06/13/23 02:30 06/13/23 02:31 DC 06/13/23 02:34 500 MLS/HR (WOLF OWENS MD) Vital Signs/I&O 06/13/23 00:40 Temp 36.5 Pulse 77 Resp 18 B/P (MAP) 135/82 (99) Pulse Ox 100 O2 Delivery Room Air (WOLF OWNES MD) Vital Signs/I&O Capillary Refill : (LEILA AGUILAR) Progress Note : Time: 02:10 Progress Note PERC rule PE can be ruled out. (LEILA AGUILAR) Progress Note : Time: 02:54 Progress Note After patient was triaged and nursing notes reviewed, PA student Leila Aguilar interviewed and examined patient at 0045 while I was detained seeing another patient. Patient was noted to be stable and not needing immediate treatments. I received report from PA student and personally interviewed and examine patient at 0105. Patient declined needed any medication for symptoms. Labs were obtained, reviewed and interpreted by me as unremarkable including CBC, CMP, and CRP. UA demonstrated probable pyurea suggesting UTI. 2 view chest x-ray was normal by my interpretation. Radiologist's report not yet available. Options for further work-up reviewed with patient CT risks and benefits vs observation vs outpatient US later this morning were discussed. Patient elects to proceed with US later in the morning. Rocephin is being given for UTI since she needs to be kept NPO for US. A NS 500 mL bolus is being given for hydration while pt NPO. Toradol was given for pain. See discharge instruction for further discussion. (WOLF OWENS MD) Diagnostic Imaging Diagonstic Imaging: Xray Plain Films/CT/US/NM/MRI: chest Comments 2 view chest x-ray viewed by me. There were no acute abnormalities by my interpretation. Radiologist report not yet available. (WOLF OWENS MD) Departure Impression Primary Impression: Right upper quadrant pain Additional Impression: Urinary tract infection Qualified Codes: N39.0 - Urinary tract infection, site not specified Disposition: 01 HOME, SELF-CARE Condition: Stable Departure-Patient Inst. Decision time for Depature: 02:26 (WOLF OWENS MD) Referrals: ROSALINO PEDERSEN DO (PCP/Family) Primary Care Physician Patient Instructions: Urinary tract infections in adults Add. Discharge Instructions: Do not eat or drink anything until after your gallbladder ultrasound. Present to the registration desk at 7:30 this morning for your ultrasound. Romina ng your ultrasound order form with you. Stay at the hospital after your ultrasound until results are communicated to the ER provider. Start your antibiotic for urinary tract infection this afternoon. Follow-up with your primary care provider early next week to review urine culture results. This will help ensure you are taking the best antibiotic for the type of infection you have. You may take Tylenol (acetaminophen) up to 1000 mg every 6 hours as needed and/or ibuprofen up to 600 mg every 6 hours as needed for pain. Do not take any pain medications until after your ultrasound. Return to the emergency room if you have worsening symptoms despite following these instructions. All discharge instructions reviewed with patient and/or family. Voiced understa nding. Scripts Cephalexin (Cephalexin) 500 Mg Tablet 500 MG PO TID, #15 TAB Prov: WOLF OWENS MD 06/13/23 Medical Student Attestation and Attending Note: I have personally interviewed and examined this patient along with BRITTNY Horner student. I have reviewed student documentation including history, physical, and assessments. I agree with the documentation except where otherwise noted. Exam: General: Alert, oriented, no acute distress, well developed HEENT: Normocephalic and atraumatic Heart: Regular rate and rhythm without murmur Lungs: Clear to auscultation bilaterally with normal effort Abdomen: Soft, tender under the costal margin in the RUQ, nondistended, normal bowel sounds, no TTP over the ribs. Neuropsych: Alert, oriented, no focal deficits Skin: Warm and dry without rashes (WOLF OWENS MD) Copy Copies To 1: ROSALINO PEDERSEN ALLISON Jun 13, 2023 01:21 WOLF OWENS MD Jun 13, 2023 02:30
[2023-06-13 01:37] LABS: BASOPHILS # (AUTO) 0.1 10^3/uL (0.0-0.1); BASOPHILS % (AUTO) 1 % (0-10); EOSINOPHILS # (AUTO) 0.2 10^3/uL (0.0-0.3); EOSINOPHILS % (AUTO) 4 % (0-10); HEMATOCRIT 36 % (35-52); LYMPHOCYTES # (AUTO) 2.5 10^3/uL (1.0-4.0); LYMPHOCYTES % (AUTO) 41 % (12-44); MEAN CORPUSCULAR HEMOGLOBIN 29 pg (25-34); MEAN CORPUSCULAR HGB CONC 33 g/dL (32-36); MEAN CORPUSCULAR VOLUME 89 fL (80-99); MEAN PLATELET VOLUME 12.1 fL (9.0-12.2); MONOCYTES # (AUTO) 0.6 10^3/uL (0.0-1.0); MONOCYTES % (AUTO) 10 % (0-12); NEUTROPHILS # (AUTO) 2.6 10^3/uL (1.8-7.8); NEUTROPHILS % (AUTO) 44 % (42-75); PLATELET COUNT 257 10^3/uL (130-400)
[2023-06-13 01:51] LABS: ALBUMIN 4.1 GM/DL (3.2-4.5)
[2023-06-13 01:52] LABS: POTASSIUM 3.7 MMOL/L (3.6-5.0)
[2023-06-13 01:53] LABS: CALCIUM 9.3 MG/DL (8.5-10.1)
[2023-06-13 01:54] LABS: TOTAL PROTEIN 7.5 GM/DL (6.4-8.2)
[2023-06-13 01:55] LABS: COLOR,URINE AMBER; PROTEIN,URINE TRACE (NEGATIVE)
[2023-06-13 01:56] LABS: BACTERIA,URINE MODERATE /HPF; BILIRUBIN,URINE 1+ (NEGATIVE); GLUCOSE, URINE (UA) NEGATIVE (NEGATIVE); KETONES,URINE NEGATIVE (NEGATIVE); LEUKOCYTE ESTERASE ,URINE NEGATIVE (NEGATIVE); NITRITE,URINE NEGATIVE (NEGATIVE)
[2023-06-13 01:56] LABS: BILIRUBIN,TOTAL 0.5 MG/DL (0.1-1.0)
[2023-06-13 01:57] LABS: CLARITY,URINE CLEAR
[2023-06-13 01:58] LABS: CREATININE SERUM 0.74 MG/DL (0.60-1.30)
[2023-06-13] MEDS ORDERED: cefTRIAXone IV/IM 1,000 MG in NS (IVPB) 50 ML 50 ML IV STA (02:22)
[2023-06-13] MEDS ORDERED: CEPH500T PO (02:29)
[2023-06-13] MEDS ORDERED: NS IV 500 ML 500 ML IV ONE (02:30)
[2023-06-13] MEDS ORDERED: KETOROLAC 30 MG/ML VIAL IVP ONE (02:30)
[2023-06-13 03:07] VITALS: BP 117/75
--- NOTE | 2023-06-13 07:17 | Diagnostic Imaging Report ---
INDICATION: Cough. Comparison is made with prior exam of 12/20/2018. FINDINGS: The heart size, mediastinal configuration, and pulmonary vascularity are within normal limits. There is no pleural effusion, pneumothorax, or pneumonia. The osseous structures are unremarkable. IMPRESSION: No acute cardiopulmonary abnormality. Dictated by: Dictated on workstation # [id number]
== END 2023-06-13 03:07 | disposition home or self-care (01) ==
LOC: EDUNIT# 00:12 → ER 00:14
DX: N39.0 Urinary tract infection, site not specified (principal)
CPT/HCPCS: 36415; 71046; 80053; 81000; 85025; 86141; 87088; 96365; 96375

== ENCOUNTER → 2023-06-13 | Outpatient (CLI) | payer MEDICAID ==
[~2023-06-13] MED LIST changes: +CEPH500T PO; +CETI10TA17 PO; +IBUP-1780 PO; +LEVO75TA6 PO; +LISI20TA26 PO; +MECL-149 PO; +OMEP40CA6 PO; +PREG75CA75 PO
--- NOTE | 2023-06-13 08:49 | Diagnostic Imaging Report ---
PROCEDURE: US Abdomen, limited. TECHNIQUE: Multiple realtime grayscale images were obtained over the abdomen in various projections. INDICATION: Right upper quadrant pain. Correlate with CT abdomen and pelvis 2016. FINDINGS: There is echodense liver parenchyma consistent with mild generalized fatty infiltration. No focal hepatic lesion. No intrahepatic bile duct dilatation. The common duct mildly prominent 8 mm this is unchanged from the remote CT. The gallbladder appeared normal. No stone or sludge. The visualized portions of the pancreas unremarkable. Its head and portions of the talar obscured by gas. The right kidney unobstructed 10.5 cm normal. No ascites. IMPRESSION: Echodense fatty liver with no biliary calculus or pathological ductal dilatation. Dictated by: Dictated on workstation # [id number]
== END ==
LOC: RAD 07:36
PROVIDERS: ATTEND Family Medicine
DX: K76.0 Fatty (change of) liver, not elsewhere classified (principal)
CPT/HCPCS: 76705